=== PATIENT | male | born 1965 | race African-American/Black ===

== ENCOUNTER 2023-02-07 13:52 | Inpatient (IN) | payer BC, SELFPAY ==
[2023-02-07] VITALS (38 sets, daily range): BP systolic 95–127; BP diastolic 54–97; PULSE 130–147; RESP 16–36; TEMP 37.3–37.5; O2SAT 94–97; BMI 22.3
--- NOTE | ~2023-02-07 | XR_ITS ---
EXAMINATION: XR chest 1V DATE: 02/15/2023 14:16 INDICATION: Pleural effusion. TECHNIQUE: A single frontal view of the chest was obtained. COMPARISON: Chest single view 02/07/2023, CT abdomen and pelvis 02/07/2023 FINDINGS: There is a large right pleural effusion. There are airspace opacities at right lung base an d in left mid lung zone. No pneumothorax. The heart size is normal. There are old healed left rib fra ctures. IMPRESSION: 1. New large right pleural effusion. 2. Airspace opacities at right lung base, consistent with atelectasis versus pneumonia. 3. Airspace opacities in left midlung zone, consistent with atelectasis/scarring versus pneumonia. Reviewed, dictated and finalized at location E. BENDER IMPRESSION: 1. New large right pleural effusion. 2. Airspace opacities at right lung base, consistent with atelectasis versus pn eumonia. 3. Airspace opacities in left midlung zone, consistent with atelectasis/scarrin g versus pneumonia.
--- NOTE | ~2023-02-07 | US_ITS ---
EXAMINATION: US venous doppler [facility] DATE: 02/15/2023 14:15 INDICATION: Tachycardia. TECHNIQUE: Grayscale ultrasound images without and with compression and Doppler ultrasound images of the bilateral lower extremity veins were obtained. COMPARISON: None. FINDINGS: The visualized portions of right common femoral vein, profunda (deep) femoral vein, femoral vein, pop liteal vein, peroneal veins, posterior tibial veins, and greater saphenous vein outflow are patent. The visualized portions of left common femoral vein, profunda femoral vein, femoral vein, popliteal v ein, peroneal veins, posterior tibial veins, and greater saphenous vein outflow are patent. IMPRESSION: 1. No deep venous thrombosis. Reviewed, dictated and finalized at location E. TRIMMER
--- NOTE | ~2023-02-07 | XR_ITS ---
EXAMINATION: XR wrist RT min 3V DATE: 02/14/2023 12:34 INDICATION: Right wrist pain post fall TECHNIQUE: Posteroanterior, ulnar deviation, oblique, and lateral views of the right wrist were obtai linda. COMPARISON: none FINDINGS: Prominent diffuse osteopenia throughout the right wrist and visualized hand. Bone alignment is normal . No fracture. Polyarticular osteoarthritis, mild to moderate severity at the interphalangeal joints and mild at multiple joints at the wrist, radial aspect of the carpus and at the metacarpophalangeal joints. IMPRESSION: 1. No acute osseous abnormality. Sensitivity for nondisplaced fractures mildly limited by prominent d iffuse osteopenia. 2. Mild to moderate polyarticular osteoarthritis at the right hand and wrist with interphalangeal carla nt predominance. Reviewed, dictated and finalized at location A. ICAL SCIENCE AIDE IMPRESSION: 1. No acute osseous abnormality. Sensitivity for nondisplaced fractures mildly limited by prominent diffuse osteopenia. 2. Mild to moderate polyarticular osteoarthritis at the right hand and wrist wi th interphalangeal joint predominance.
--- NOTE | ~2023-02-07 | XR_ITS ---
EXAMINATION: [id number] DATE: 02/16/2023 15:48 INDICATION: Status post right thoracentesis TECHNIQUE: frontal and lateral views of the chest were obtained. COMPARISON: Chest radiograph dated 02/15/[address] dated 02/07/2023 FINDINGS: There is some improved aeration on at the right midlung zone. There is elevation the right hemidiaphr agm with persistent opacities at the right lower lung zone consistent with minimal residual pleural e ffusion and persistent atelectasis in the right middle and lower lobes with consolidation and volume loss. Superimposed pneumonia not excludable. Left lung remains clear. No pulmonary edema, pneumothora x or left-sided pleural effusion. Multiple old left-sided rib fractures. Heart size is normal. IMPRESSION: 1. Minimal residual right pleural effusion postthoracentesis. 2. Volume loss with consolidation in the right middle and lower lobes most likely atelectasis althoug h underlying pneumonia not excludable. Reviewed, dictated and finalized at location A. TS AGENT IMPRESSION: 1. Minimal residual right pleural effusion postthoracentesis. 2. Volume loss with consolidation in the right middle and lower lobes most like ly atelectasis although underlying pneumonia not excludable.
--- NOTE | ~2023-02-07 | US_ITS ---
EXAMINATION: US renal BI DATE: 02/14/2023 18:15 INDICATION: Pyelonephritis. TECHNIQUE: Multiple ultrasound grayscale images of the kidneys were obtained. COMPARISON: Ultrasound kidneys 02/08/2023, CT abdomen and pelvis 02/07/2023 FINDINGS: The right kidney measures 13.3 x 7.0 x 6.1 cm. The left kidney measures 12.5 x 7.2 x 7.6 cm. The kidn eys demonstrate normal parenchymal echogenicity. There is no hydronephrosis. The bladder is decompres sed by a Caba catheter. IMPRESSION: 1. Normal kidney sizes. No hydronephrosis. Reviewed, dictated and finalized at location E. EATION MANAGER
--- NOTE | ~2023-02-07 | XR_ITS ---
EXAMINATION: XR barium swallow modified DATE: 02/19/2023 10:57 INDICATION: Dysphagia. TECHNIQUE: The patient was given barium-containing material of multiple consistencies to swallow by t he speech pathologist while I performed fluoroscopy. Fluoroscopy exposure time was 0.8 minutes. The n umber of fluoroscopy images saved to the PACS was 1. Dose-area product was 0.614 Gy-cm^2. FINDINGS: The oral stage, pharyngeal stage, and cervical/esophageal stage of the swallow are normal. IMPRESSION: 1. Normal modified barium swallow. 2. Please refer to the speech therapy report for recommendations. Reviewed, dictated and finalized at location A. A SPECIALIST
--- NOTE | ~2023-02-07 | NM_ITS ---
EXAMINATION: NM lung vent and perfusion DATE: 02/15/2023 14:56 INDICATION: Tachycardia. TECHNIQUE: 21.63 mCi Xenon-133 was administered for ventilation images. 5.4 mCi Tc-99m MAA was admini stered intravenously for perfusion images. Scintigraphic images of the chest were obtained. COMPARISON: Chest single view 02/15/2023 FINDINGS: Ventilation images show a large right pleural effusion. Perfusion images demonstrate a large right pl eural effusion. There are small perfusion defects in the upper lobes. There is a defect correlating w ith a left lateral chest wall deformity. IMPRESSION: 1. Nondiagnostic (intermediate probability). Reviewed, dictated and finalized at location E. N TRIMMER
--- NOTE | ~2023-02-07 | US_ITS ---
US renal BI 02/08/2023 10:06 Procedure: Realtime transabdominal ultrasound of the kidneys and bladder. Indication: Elevated renal function tests. Comparison: No prior studies for comparison. Findings: Renal echotexture is normal bilaterally without hydronephrosis, contour deforming mass or r enal calculus. The right kidney measures 13.5 cm and left kidney measures 14.3 cm. There is a Caba c atheter present in the bladder. Impression: 1: Unremarkable renal ultrasound. No stones, masses or hydronephrosis. Reviewed, dictated and finalized at location L. ABLE ROUTER OPERATOR Impression: 1: Unremarkable renal ultrasound. No stones, masses or hydronephrosis.
--- NOTE | ~2023-02-07 | US_ITS ---
EXAMINATION: US thoracentesis DATE: 02/16/2023 16:17 INDICATION: Right pleural effusion TECHNIQUE: The procedure and its risks and benefits were discussed with the patient. Potential risks discussed included bleeding, infection, and pneumothorax. The patient understood the risks and agreed to proceed. The skin was prepped and draped in sterile fashion. 1% lidocaine was used for local anes thesia. Under ultrasound guidance, a 5 Fr catheter with trochar was advanced into the small right ple ural effusion. Fluid was aspirated. The catheter was removed, and a dressing was applied. There were no immediate complications. FINDINGS: Ultrasound images demonstrate a small right pleural effusion and the catheter within the fluid. IMPRESSION: 1. Successful ultrasound-guided thoracentesis yielding 150 mL of yellow fluid. Reviewed, dictated and finalized at location A. ETRICS TECHNICIAN
--- NOTE | ~2023-02-07 | CT_ITS ---
EXAMINATION: CT brain wo con DATE: 02/07/2023 15:45 INDICATION: altered mental status . TECHNIQUE: Computed tomography (CT) of the head was performed without intravenous contrast. The mA wa s adjusted according to patient size. Iterative reconstruction technique was employed. The dose-lengt h product was 681.00 mGy-cm. COMPARISON: None. FINDINGS: Motion artifact at the skull base/inferior brain. No acute intracranial hemorrhage or extra-axial fluid collection. No hydrocephalus, mass, or herniation. No acute ischemic infarct. Unremarkable dural venous sinus attenuation. No acute osseous abnormality. Partial opacification of the left ethmoid air cells, the remaining aerated spaces are clear. Mild chronic white matter change. Atherosclerotic intracranial calcifications. Bilateral basal gangli a calcification. IMPRESSION: No acute intracranial process. Reviewed, dictated and finalized at location K. EM SAFETY MANAGER
--- NOTE | ~2023-02-07 | XR_ITS ---
EXAMINATION: XR chest 1V Exam Date/Time: 02/07/2023 15:40 FLIGHT INFORMATION EXPEDITER HISTORY: sepsis Comparison: None. RESULT: Lines, tubes, and devices: None. Lungs and pleura: Left lower lung scarring. Bibasilar atelectasis/scar. Cardiomediastinal silhouette: Stable. Other: No acute osseous or upper abdominal finding. Chronic left rib deformities. IMPRESSION: No acute cardiopulmonary process. Reviewed, dictated and finalized at location K. HT INFORMATION EXPEDITER
--- NOTE | ~2023-02-07 | CT_ITS ---
EXAMINATION: CT abdomen pelvis wo con DATE: 02/07/2023 15:46 INDICATION: hematuria, altered mental status, sepsis TECHNIQUE: Computed tomography (CT) of the abdomen and pelvis was performed without intravenous contr ast. Automated exposure control and iterative reconstruction technique were employed. The dose-length product was 977.52 mGy-cm. COMPARISON: X-ray chest, same date. FINDINGS: Lower thorax: Coronary artery calcifications. Left lower lobe scar. Bibasilar atelectasis/scar. Chron ic left rib deformities. Liver: Enlarged. Biliary/Gallbladder: Gallbladder hydrops without inflammatory change. No bile duct dilation. Pancreas: No mass or duct dilation. Spleen: Normal. Adrenals:No mass. Kidneys: No obstructing calcification or suspicious mass. Apparent bilateral renal enlargement, great er on the left. Moderate bilateral perinephric stranding. Mild bilateral ureterectasis and ureteral s tranding. GI tract: No small or large bowel dilation. Normal appendix. Mesentery/Peritoneum: No ascites, mass, or free air. Fluid/inflammatory change along the bilateral la teral conal fascia. Retroperitoneum: No mass. Atherosclerotic abdominal aortic and/or arterial calcifications. Pelvis: The bladder is decompressed by Caba catheter. There is bladder wall thickening and surroundi ng inflammatory change. Soft Tissues: Soft tissues and body wall unremarkable. Bones: No acute osseous finding. IMPRESSION: Hepatomegaly. Gallbladder hydrops without inflammatory change. Correlate with right upper quadrant pain and biliary labs. Findings concerning for cystitis with bilateral ascending infection and bilateral pyelonephritis. Reviewed, dictated and finalized at location K. OPATH TECH IMPRESSION: Hepatomegaly. Gallbladder hydrops without inflammatory change. Correlate with right upper brian drant pain and biliary labs. Findings concerning for cystitis with bilateral ascending infection and bilater al pyelonephritis.
--- NOTE | 2023-02-07 13:59 | ECG_ITS ---
Measurements Intervals [place] Rate: 142 P: 65 SC: 126 QRS: 71 QRSD: 80 T: 35 QT: 328 QTc: 506 Interpretive Statements SINUS TACHYCARDIA NONSPECIFIC T-WAVE ABNORMALITY ABNORMAL RHYTHM ECG NO PREVIOUS ECG AVAILABLE FOR COMPARISON Electronically Signed On 02-07-2023 21:16:31 SENIOR RUBY DEVELOPER by Rito Thacker M.D.
--- NOTE | 2023-02-07 14:02 | ED.AMS ---
HPI - Altered Mental Status General Chief Complaint: Altered Mental Status Stated Complaint: AMS Time Seen by Provider: 02/07/23 14:01 History of Present Illness HPI narrative: Patient is a 57 year old male here from [facility] here with altered mental status and hematuria. Patient is reportedly AOx4 at baseline, became confused today. They also reportedly changed his dave catheter today and noted he had blood from his catheter and sent him to the ER. He is unsure of why he is here, unsure of his medical history. His paperwork from facility note he is full code, has diagnoses of hydronephrosis with renal and ureteral calculous, repeated falls, HTN, CAD. Related Data Home Medications Medication Instructions Recorded Confirmed amlodipine 10 mg-benazepril 20 mg 1 cap PO DAILY 02/07/23 02/07/23 capsule hydrocodone 5 mg-acetaminophen 325 1 tablet PO Q8H PRN Pain 02/07/23 02/07/23 mg tablet tamsulosin 0.4 mg capsule 0.4 mg PO DAILY 02/07/23 02/07/23 Allergies Allergy/AdvReac Type Severity Reaction Status Date / Time No Known Allergies Allergy Verified 02/07/23 15:28 Review of Systems Review of Systems: ROS unobtainable: Yes unobtainable due to mental status Exam Narrative: GENERAL: Chronically ill-appearing HEAD: Normocephalic, atraumatic. EYES: PERRLA and EOMI. ENT: Nares clear. Mucous membranes dry. NECK: Supple. CHEST: Clear to auscultation. No respiratory distress. HEART: Tachycardic. Normal peripheral pulses. ABDOMEN: Soft, nontender, nondistended. Dave catheter in place with dark red blood output. EXTREMITIES: Normal range of motion. No edema. SKIN: Warm, dry, no rash. NEURO: No focal deficits. Alert and oriented x2. Course Course Emergency Course: Chart review performed, no prior visits in our system. Tachycardic, borderline hypertension, tachypneic. Patient seen and evaluated, dry mucous membranes, altered. CT brain in addition to sepsis workup ordered. Given gross hematuria, will do CT abdomen pelvis and replace dave with 3 way and do CBI. Lab work reviewed. CBC unremarkable, Hgb 11.1. Potassium elevated at 6.2, no obvious EKG changes, creatinine is 8.2. Suspect JUDAH is due to obstructive vs volume depleted given dry mucous membranes. Hyperkalemia treatment ordered with insulin, D50, lokelma, calcium. Lactic elevated at 4.8. CRP elevated at 40.5. Broad spectrum antibiotics for unknown source ordered. 30 cc/kg IVF bolus was already ordered. COVID, Influenza, RSV negative. CT brain negative, CXR negative. CT abdomen pelvis shows likely cystitis and bilateral pyelonephritis. Will reevaluate. Patient reevaluated, continues to deny any pain. CBI in process, clearing urine, now a light pink color. He was down at imaging for prolonged period, initial IVF continue to be infusing. Will wait for IVF and hyperkalemia meds before drawing repeat lab work. Repeat lactic downtrending, has not completed IVF, second IV access was obtained so he is now able to get additional IVF. Patient reevaluated, more alert at this time, notes he began feeling poorly yesterday, he feels quite dehydrated, requesting PO fluids. Repeat BMP ordered. Repeat EKG ordered given persistent tachycardia. Improving renal function with IVF. Potassium now 5.1. Spoke with Dr. Chavarria, will be on consult. CBI was discontinued, patient once again has dark red output. Advise to restart CBI. Discussed case with Dr. Roth, recommends continuing CBI overnight, NPO at midnight. Send urine culture. He has been persistently tachycardic in the 140s despite recussitation, repeat ekg suggests possible aflutter, baseline has excessive artifact, will do trial of cardizem to see if it helps with HR. Patient was admitted by Dr. Caicedo, updated on plan of care. IMU bed available. Vital Signs Vital signs: Vital Signs Temperature 99.1 F 02/07/23 13:45 Pulse Rate 137 H 02/07/23 13:45 Respiratory Rate 29 H 02/07/23 13:
[2023-02-07 15:04] LABS: Hematocrit 34.4 % (42.0-52.0); Hemoglobin 11.1 g/dL (14.0-18.0); Immature Platelet Fraction Pct 9.4 % (0.9-11.2); Mean Corpuscular HGB Conc 32.3 g/dl (32-36); Mean Corpuscular Hemoglobin 30.2 pg (26-34); Mean Corpuscular Volume 93.7 fl (80-100); Mean Platelet Volume 11.1 fl (7.4-10.4); Platelet Count Result 61 k/mm3 (150-375); Red Blood Count 3.67 M/mm3 (4.6-6.20); Red Cell Distribution Width 16.8 % (11.5-14.5); White Blood Count 9.5 K/mm3 (4.5-10.0)
[2023-02-07 15:10] LABS: Alanine Aminotransferase 32 U/L (6-50); Albumin Level 4.1 g/dL (3.5-5.1); Alkaline Phosphatase 91 U/L (38-126); Anion Gap 20 mmol/L (8-16); Aspartate Amino Transferase 67 U/L (17-59); Bilirubin,Total 1.8 mg/dL (0.2-1.3); Blood Urea Nitrogen 101 mg/dL (9-20); Calcium 9.1 mg/dL (8.4-10.2); Carbon Dioxide 16 mmol/L (22-30); Chloride 97 mmol/L (98-107); Estimated Glomerular Filt Rate 8; Glucose 103 mg/dL (65-110); Potassium 6.2 mmol/L (3.4-5.0); Sodium 133 mmol/L (137-145)
[2023-02-07 15:12] LABS: INR 1.5; Prothrombin Time 18.7 Seconds (11.1-14.7)
[2023-02-07 15:12] LABS: Lactic Acid Reflex 4.8 mmol/L (0.7-2.0)
[2023-02-07] MEDS: LACTATED RINGERS 1,000 ML 999 ML IV CONT ×5 (15:12→22:09)
[2023-02-07 15:13] LABS: Partial Thromboplastin Time 45.4 SECONDS (22.3-36.8)
[2023-02-07 15:14] LABS: Band Neutrophils Percent 12 % (0-6); Eosinophils Absolute Manual 0.09 K/mm3 (0.02-0.5); Eosinophils Percent Manual 1 % (0-4); Lymphocytes Absolute Manual 0.66 K/mm3 (1.1-4.5); Monocytes Absolute Manual 0.47 K/mm3 (0.1-0.90); Monocytes Percent Manual 5 % (3-9); Neutrophils Absolute Manual 8.26 K/mm3 (1.3-6.7); Neutrophils Percent Manual 75 % (46-73); Platelet Estimate Decreased (Adequate); Total Cells Counted 100
[2023-02-07 15:15] LABS: Anisocytosis 1+ (NORMAL); Macrocytosis 1+ (NORMAL); Schistocytes None Seen (NORMAL)
[2023-02-07 15:21] LABS: Troponin I 0.015 ng/mL (0.000-0.034)
[2023-02-07 15:34] LABS: Lipase 346 U/L (23-300)
[2023-02-07 15:37] LABS: Influenza A QL RT-PCR Negative (Negative); Influenza B QL RT-PCR Negative (Negative); RSV RNA, RT-PCR Negative (Negative); SARS-CoV-2 RNA PCR Negative (Negative)
[2023-02-07 15:48] LABS: CRP 40.5 mg/dL (<1.0)
--- NOTE | 2023-02-07 16:06 | PC.NURSE ---
pt was not draining urine after dave cath placement suspected due to blood clot. CBI started before getting urine sample per MD verbal order and pt began draining bright red blood
[2023-02-07] MEDS: CALCIUM GLUCONATE 1,000 MG/10 ML VIAL 2000 MG IV PUSH (16:12)
[2023-02-07] MEDS: INSULIN HUMAN REGULAR (*BKC) 100 UNITS/ML 10 UNITS IV PUSH (16:13)
[2023-02-07] MEDS: SODIUM ZIRCONIUM CYCLOSILICATE 10 GM POWD.PACK PO (16:13)
[2023-02-07] MEDS: DEXTROSE 50% 25 GM/50 ML SYRINGE IV PUSH (16:13)
--- NOTE | 2023-02-07 16:23 | PC.NURSE ---
pt down to imaging @1532 and back @7951
[2023-02-07 16:37] LABS: Glucose Point of Care 165 mg/dl (65-105)
[2023-02-07] MEDS: CEFEPIME 2 GM/NS 50 ML 2 GM/50 ML BAG IVPB (16:54)
[2023-02-07 17:11] LABS: Glucose Point of Care 122 mg/dl (65-105)
[2023-02-07] MEDS: VANCOMYCIN 750 MG/NS 250 ML 750 MG/250 ML BAG 250 MG IVPB (17:36)
[2023-02-07 17:58] LABS: Reflex Lactic Acid Yes or No Add Lactic
[2023-02-07 18:04] LABS: Glucose Point of Care 72 mg/dl (65-105)
--- NOTE | 2023-02-07 18:07 | PC.NURSE ---
check blood sugar and it came back 72, notified MD. gave pt 2 cups of fruit juice per MD verbal order
--- NOTE | 2023-02-07 19:18 | ECG_ITS ---
Measurements Intervals [place] Rate: 132 P: 66 MS: 127 QRS: 77 QRSD: 85 T: 39 QT: 332 QTc: 493 Interpretive Statements SINUS TACHYCARDIA NONSPECIFIC ST AND T WAVE ABNORMALITY COMPARED TO ECG 02/07/2023 21:16:36 NO SIGNIFICANT CHANGES Electronically Signed On 02-08-2023 9:13:52 PATTERNMAKER METAL by Rito Thacker M.D.
[2023-02-07 19:29] LABS: Anion Gap 17 mmol/L (8-16); Blood Urea Nitrogen 83 mg/dL (9-20); Carbon Dioxide 13 mmol/L (22-30); Chloride 100 mmol/L (98-107); Estimated CRCL calculation 8 ml/min; Estimated Glomerular Filt Rate 12; Glucose 102 mg/dL (65-110); Potassium 5.1 mmol/L (3.4-5.0); Sodium 130 mmol/L (137-145)
--- NOTE | 2023-02-07 19:30 | PC.NURSE ---
care and report given to MARY Zheng. all questions answered.
[2023-02-07] MEDS: LACTATED RINGERS 1,000 ML 150 ML IV CONT (20:30)
[2023-02-07 20:51] LABS: Sodium Urine Random 64 meq/L
--- NOTE | 2023-02-07 20:52 | ECG_ITS ---
Measurements Intervals [place] Rate: 135 P: 61 IL: 117 QRS: 65 QRSD: 84 T: 0 QT: 292 QTc: 438 Interpretive Statements SINUS TACHYCARDIA WITH SHORT [place] INTERVAL NONSPECIFIC ST AND T-WAVE ABNORMALITY ABNORMAL RHYTHM ECG WARNING: DATA QUALITY MAY AFFECT INTERPRETATION COMPARED TO ECG 02/07/2023 21:59:12 NO SIGNIFICANT CHANGES Electronically Signed On 02-08-2023 9:15:29 CORRECTIONAL MEDICINE PHYSICIAN by Rito Thacker M.D.
[2023-02-07 20:53] LABS: Appearance Urine Turbid (Clear); Blood Urine 4+ (Negative); Color Urine Red (Yellow); Glucose Urine UA Negative (Negative); Ketones Urine Negative (Negative); Nitrate Urine Positive (Negative); Protein Urine 3+ mg/dL (Negative)
[2023-02-07 20:54] LABS: Add Urine Microscopic? YES; Bacteria Urine Trace /hpf; Bilirubin Urine Negative (Negative); Leukocyte Esterase Ur 3+ LEU/UL (Negative); RBC Urine >100 /hpf (0-2); WBC Clumps Urine Present /HPF; WBC Urine >100 /hpf
[2023-02-07 20:55] LABS: Non Pathogenic Casts Present
[2023-02-07 21:34] LABS: Hematocrit 25.3 % (42.0-52.0); Hemoglobin 8.4 g/dL (14.0-18.0)
--- NOTE | 2023-02-07 21:45 | PC.NURSE ---
This RN was notified of patient room assignment at [id number] while cleaning and changing the patient.
[2023-02-07] MEDS: dilTIAZem HCl INJ 25 MG/5 ML VIAL 15 MG IV PUSH (21:48)
--- NOTE | 2023-02-07 21:55 | PC.NURSE ---
at bedside. VORB for 1000mL of lactated ringers bolus.
--- NOTE | 2023-02-07 21:56 | ECG_ITS ---
Measurements Intervals [place] Rate: 135 P: 62 [place]: 119 QRS: 73 QRSD: 89 T: -49 QT: 265 QTc: 397 Interpretive Statements SINUS TACHYCARDIA WITH SHORT [place] INTERVAL MODERATE T-WAVE ABNORMALITY, CONSIDER INFERIOR ISCHEMIA [-0.1+ mV T WAVE IN II/aVF] NO PREVIOUS ECG AVAILABLE FOR COMPARISON Electronically Signed On 02-08-2023 15:02:24 WHARF LABOURER by Rito Thacker M.D.
[2023-02-07] MEDS: dilTIAZem HCl INJ 25 MG/5 ML VIAL 10 MG IV PUSH (22:00)
[2023-02-07 23:24] LABS: Immature Platelet Fraction Pct 10.3 % (0.9-11.2); Mean Corpuscular HGB Conc 33.3 g/dl (32-36); Mean Corpuscular Hemoglobin 30.5 pg (26-34); Mean Corpuscular Volume 91.5 fl (80-100); Mean Platelet Volume 11.8 fl (7.4-10.4); Platelet Count Result 48 k/mm3 (150-375); Red Blood Count 2.95 M/mm3 (4.6-6.20); Red Cell Distribution Width 16.4 % (11.5-14.5); White Blood Count 5.7 K/mm3 (4.5-10.0)
[2023-02-07 23:38] LABS: Band Neutrophils Percent 10 % (0-6); Lymphocytes Absolute Manual 0.74 K/mm3 (1.1-4.5); Monocytes Absolute Manual 0.17 K/mm3 (0.1-0.90); Monocytes Percent Manual 3 % (3-9); Neutrophils Absolute Manual 4.78 K/mm3 (1.3-6.7); Neutrophils Percent Manual 74 % (46-73); Platelet Estimate Decreased (Adequate); Total Cells Counted 100
[2023-02-07 23:39] LABS: Anisocytosis 1+ (NORMAL); Burr Cells 1+ (NORMAL); Schistocytes None Seen (NORMAL)
[2023-02-07 23:44] LABS: Anion Gap 19 mmol/L (8-16); Blood Urea Nitrogen 98 mg/dL (9-20); Calcium 8.4 mg/dL (8.4-10.2); Carbon Dioxide 15 mmol/L (22-30); Chloride 99 mmol/L (98-107); Glucose 95 mg/dL (65-110); Magnesium 1.6 mg/dL (1.6-2.3); Potassium 5.4 mmol/L (3.4-5.0); Sodium 133 mmol/L (137-145)
[2023-02-07 23:45] LABS: Lactic Acid Reflex 4.2 mmol/L (0.7-2.0)
[2023-02-07 23:52] LABS: Estimated CRCL calculation 12 ml/min; Estimated Glomerular Filt Rate 11
[2023-02-08] VITALS (33 sets, daily range): BP systolic 80–105; BP diastolic 56–71; PULSE 100–137; RESP 18–30; TEMP 36.4–38.4; O2SAT 19–99; BMI 22.3
[2023-02-08 00:16] LABS: Procalcitonin > 100.0 ng/mL
--- NOTE | 2023-02-08 00:19 | PM.IMHP ---
H&P: HPI History of Present Illness Date/Time: 02/08/23 00:19 Chief Complaint: 57M w/ PMH urolithiasis, urinary retention with chronic dave, HTN presents from [facility] with altered mental status. Reportedly his baseline is A&Ox4. History is scant as the patient cannot provide it reliably, his only contact was unreachable and longterm documentation isn't greatly helpful. The pt had a dave catheter change on the day of admission, apparently has had some bleeding. In the ER his dave was found to be grossly red, he had multiples lab derangements including leukocytosis, JUDAH, lactic acidosis, anema, hyperkalemia, positive UA and a CT abd/pelv revealed gallbladder hydrops without inflammatory change and concerning for cystitis with b/l ascending infection and b/l pyelonephritis. CT head and CXR were otherwise unremarkable. The patient can converse but his answers are sometimes disorganized. He asks for orange juice. Review of Systems Review of Systems: ROS unobtainable: Yes unobtainable due to mental status Meds Home Medications and Allergies Home Medications Medication Instructions Recorded Confirmed Type amlodipine 10 mg-benazepril 20 mg 1 cap PO DAILY 02/07/23 02/07/23 History capsule hydrocodone 5 mg-acetaminophen 325 1 tablet PO Q8H PRN Pain 02/07/23 02/07/23 History mg tablet tamsulosin 0.4 mg capsule 0.4 mg PO DAILY 02/07/23 02/07/23 History Allergies Allergy/AdvReac Type Severity Reaction Status Date / Time No Known Allergies Allergy Verified 02/07/23 15:28 Vital Signs Vital Signs - 24 hr 02/07/23 13:45 02/07/23 13:57 02/07/23 13:57 Temperature 99.1 F Pulse Rate 137 H 138 H Respiratory Rate 29 H Blood Pressure 104/66 Pulse Oximetry 94 94 Oxygen Delivery Room Air Room Air 02/07/23 14:50 02/07/23 14:51 02/07/23 15:28 Temperature Pulse Rate 139 H 138 H 132 H Respiratory Rate 24 H 29 H 18 Blood Pressure 125/75 109/54 L Pulse Oximetry Oxygen Delivery 02/07/23 14:52 02/07/23 15:04 02/07/23 15:48 Temperature Pulse Rate 138 H 140 H 134 H Respiratory Rate 31 H 28 H 28 H Blood Pressure Pulse Oximetry Oxygen Delivery 02/07/23 15:52 02/07/23 16:32 02/07/23 16:45 Temperature Pulse Rate 133 H 147 H 146 H Respiratory Rate 26 H 25 H 25 H Blood Pressure Pulse Oximetry Oxygen Delivery 02/07/23 17:00 02/07/23 17:15 02/07/23 17:24 Temperature Pulse Rate 141 H 140 H 140 H Respiratory Rate 25 H 26 H 26 H Blood Pressure 112/69 Pulse Oximetry 97 Oxygen Delivery 02/07/23 17:25 02/07/23 17:30 02/07/23 17:46 Temperature Pulse Rate 140 H 143 H 142 H Respiratory Rate 24 H 29 H 30 H Blood Pressure Pulse Oximetry 97 Oxygen Delivery 02/07/23 17:51 02/07/23 18:00 02/07/23 18:01 Temperature Pulse Rate 139 H 136 H 140 H Respiratory Rate 28 H 33 H 32 H Blood Pressure 108/77 110/78 Pulse Oximetry 97 Oxygen Delivery 02/07/23 18:02 02/07/23 18:11 02/07/23 18:15 Temperature Pulse Rate 140 H 140 H 136 H Respiratory Rate 29 H 30 H 32 H Blood Pressure 113/80 Pulse Oximetry 96 Oxygen Delivery 02/07/23 19:19 02/07/23 19:01 02/07/23 19:02 Temperature Pulse Rate 138 H 137 H 138 H Respiratory Rate 33 H 32 H 36 H Blood Pressure 116/84 120/76 Pulse Oximetry 96 Oxygen Delivery 02/07/23 19:10 02/07/23 19:15 02/07/23 19:20 Temperature Pulse Rate 136 H 135 H 138 H Respiratory Rate 31 H 30 H 35 H Blood Pressure 116/84 122/87 Pulse Oximetry 96 96 96 Oxygen Delivery 02/07/23 19:30 02/07/23 19:31 02/07/23 20:29 Temperature Pulse Rate 138 H 138 H 137 H Respiratory Rate 35 H 36 H 27 H Blood Pressure 127/82 Pulse Oximetry Oxygen Delivery 02/07/23 20:30 02/07/23 20:31 02/07/23 20:45 Temperature Pulse Rate 138 H 137 H 138 H Respiratory Rate 34 H 33 H 35 H Blood Pressure 119/79 Pulse Oximetry Oxygen Delivery 02/07/23 20:51
[2023-02-08] MEDS: METOPROLOL TARTRATE INJ 5 MG/5 ML VIAL IV PUSH (00:26)
[2023-02-08] MEDS: INSULIN HUMAN REGULAR (*BKC) 100 UNITS/ML 10 UNITS IV PUSH (00:28)
[2023-02-08] MEDS: DEXTROSE 50% 25 GM/50 ML SYRINGE IV PUSH (00:30)
[2023-02-08] MEDS: CALCIUM GLUC 2,000 MG/NS 100ML 2,000 MG/100 ML BAG 100 MG IVPB (00:30)
[2023-02-08] MEDS: SODIUM CHLORIDE 0.9% IV 1,000 ML 150 ML IV CONT (00:30)
[2023-02-08] MEDS: SODIUM BICARBONATE 8.4% 50 MEQ/50 ML SYRINGE IV PUSH (00:30)
[2023-02-08] MEDS: SODIUM ZIRCONIUM CYCLOSILICATE 5 GM POWD.PACK PO ×2 (01:24→11:20)
--- NOTE | 2023-02-08 03:22 | ADMGEN ---
This patient, Stanley Ingram, was admitted to IMU Room 214-01 at 2225 on 02/07/2023 . Patient/family oriented to hospital policies and general routines including ID bracelet, bed and alarms, visiting hours, pain management, procedures, bathroom and other care routines, personal items, smoking policy, room service/diet, and visiting hours. Information on how to activate the Rapid Response Team has been discussed. Patient/Family are encouraged to report perceived risks to care and to ask questions if they do not understand what they are told or what they should do.
[2023-02-08 03:41] LABS: Hematocrit 25.9 % (42.0-52.0); Hemoglobin 8.5 g/dL (14.0-18.0); Immature Platelet Fraction Pct 11.2 % (0.9-11.2); Mean Corpuscular HGB Conc 32.8 g/dl (32-36); Mean Corpuscular Hemoglobin 29.8 pg (26-34); Mean Corpuscular Volume 90.9 fl (80-100); Mean Platelet Volume 12.2 fl (7.4-10.4); Platelet Count Result 40 k/mm3 (150-375); Red Blood Count 2.85 M/mm3 (4.6-6.20); Red Cell Distribution Width 16.4 % (11.5-14.5); White Blood Count 10.5 K/mm3 (4.5-10.0)
--- NOTE | 2023-02-08 03:50 | PC.NURSE ---
Blood verification time did not save initially, reverified at later time with 2nd RN and platelets started at 0327.
[2023-02-08] MEDS: SODIUM CHLORIDE 0.9% IV 250 ML 30 ML IV CONT ×2 (03:55→10:39)
[2023-02-08] MEDS: TUBING, BLOOD PLUM PUMP TUBING 1 EACH XX (03:55)
[2023-02-08 03:56] LABS: Alanine Aminotransferase 31 U/L (6-50); Albumin Level 3.3 g/dL (3.5-5.1); Alkaline Phosphatase 75 U/L (38-126); Anion Gap 21 mmol/L (8-16); Aspartate Amino Transferase 111 U/L (17-59); Bilirubin,Total 1.6 mg/dL (0.2-1.3); Blood Urea Nitrogen 100 mg/dL (9-20); Calcium 8.9 mg/dL (8.4-10.2); Carbon Dioxide 14 mmol/L (22-30); Chloride 101 mmol/L (98-107); Glucose 82 mg/dL (65-110); Magnesium 1.7 mg/dL (1.6-2.3); Phosphorus 5.8 mg/dL (2.5-4.5); Potassium 4.6 mmol/L (3.4-5.0); Sodium 136 mmol/L (137-145)
[2023-02-08 03:57] LABS: Band Neutrophils Percent 6 % (0-6); Lymphocytes Absolute Manual 1.89 K/mm3 (1.1-4.5); Monocytes Absolute Manual 1.05 K/mm3 (0.1-0.90); Monocytes Percent Manual 10 % (3-9); Neutrophils Absolute Manual 7.56 K/mm3 (1.3-6.7); Neutrophils Percent Manual 66 % (46-73); Platelet Estimate Decreased (Adequate); Total Cells Counted 100
[2023-02-08 03:58] LABS: Anisocytosis 1+ (NORMAL); Burr Cells 1+ (NORMAL)
[2023-02-08 03:59] LABS: Schistocytes None Seen (NORMAL)
[2023-02-08 04:01] LABS: Estimated CRCL calculation 12 ml/min; Estimated Glomerular Filt Rate 10
[2023-02-08 04:07] LABS: INR 1.6; Prothrombin Time 20.1 Seconds (11.1-14.7)
[2023-02-08 04:08] LABS: Fibrinogen 626 mg/dl (215-510); Partial Thromboplastin Time 47.6 SECONDS (22.3-36.8)
[2023-02-08 04:23] LABS: D Dimer 11.27 ug/mL (<0.48)
[2023-02-08 04:43] LABS: Glucose Point of Care 99 mg/dl (65-105)
[2023-02-08 04:43] LABS: Glucose Point of Care 93 mg/dl (65-105)
[2023-02-08 04:43] LABS: Glucose Point of Care 87 mg/dl (65-105)
[2023-02-08 05:15] LABS: Lactic Acid Reflex 5.1 mmol/L (0.7-2.0)
[2023-02-08] MEDS: SODIUM CHLORIDE 0.9% IV 1,000 ML 999 ML IV CONT (05:24)
[2023-02-08] MEDS: SODIUM BICARBONATE 8.4% 150 MEQ in WATER, STERILE FOR INJECTION 950 ML 100 MEQ IV CONT ×2 (05:25→16:55)
[2023-02-08 05:43] LABS: Glucose Point of Care 98 mg/dl (65-105)
--- NOTE | 2023-02-08 06:48 | PC.NURSE ---
pt transfered from imu report recieved pt placed on monitor
--- NOTE | 2023-02-08 07:20 | WPDURCON ---
Assessment and Plan Assessment and plan (1) Hematuria: Qualifiers: Hematuria type: unspecified type Qualified Code(s): R31.9 - Hematuria, unspecified Code(s): R31.9 - Hematuria, unspecified Status: Acute Assessment and Plan: Hematuria d/t acute cystitis with bilateral ascending pyelonephritis. Chronic urinary retention uncertain etiology. - Continue CBI while treating UTI - Would benefit from outpatient evaluation with urodynamics to determine cause for retention (outlet obstruction vs. hypotonic bladder). Urology Consult Note HPI Date Seen: 02/08/23 Requesting Physician: Viky Caicedo MD Primary Care Provider: PLASTICS SCIENTIST PHYSICIAN Consult Narrative Narrative: Stanley Ingram is a 57 year old male who was first seen in our practice as an inpatient consult at [facility] in [place], [place] where he was admitted in November 2022 with generalized weakness. He was found to be in urinary retention with a bladder volume of 1000 cc and mild bilateral hydronephrosis. Hydronephrosis resolved with catheter placement. Subsequent to discharge he has missed several outpatient appointments and has been noncompliant with follow-up. To my knowledge the catheter has been indwelling since. Patient is a resident of a prison and appears to be minimally ambulatory. He is unable to give a reliable history at this time. his indwelling catheter was replaced last night with a 3-way catheter. Urine is minimally blood tinged on a slow CBI. Review of Systems Review of Systems: ROS unobtainable: Yes unobtainable due to mental status PMFSH Social History Social History Smoking status: Never smoker Alcohol intake: former Substance use: unknown Do You Feel Safe in your Home?: Yes Lack of Transportation: No Lack of Food: Never True Current Housing: I Have Housing Concerned About Future Housing: No Difficulty Paying Gas/Electric Bills: No Difficulty Paying for Meds: No Currently Unemployed: No Education: High School Diploma/GED Difficulty w/ Childcare or Family Care: No Spiritual care concerns: No Meds Home Medications and Allergies Home Medications Medication Instructions Recorded Confirmed Type amlodipine 10 mg-benazepril 20 mg 1 cap PO DAILY 02/07/23 02/07/23 History capsule hydrocodone 5 mg-acetaminophen 325 1 tablet PO Q8H PRN Pain 02/07/23 02/07/23 History mg tablet tamsulosin 0.4 mg capsule 0.4 mg PO DAILY 02/07/23 02/07/23 History Allergies Allergy/AdvReac Type Severity Reaction Status Date / Time No Known Allergies Allergy Verified 02/07/23 15:28 Vital Signs Vital Signs - 24 hr 02/07/23 13:45 02/07/23 13:57 02/07/23 13:57 Temperature 99.1 F Pulse Rate 137 H 138 H Respiratory Rate 29 H Blood Pressure 104/66 Pulse Oximetry 94 94 Oxygen Delivery Room Air Room Air Oxygen Flow Rate 02/07/23 14:50 02/07/23 14:51 02/07/23 15:28 Temperature Pulse Rate 139 H 138 H 132 H Respiratory Rate 24 H 29 H 18 Blood Pressure 125/75 109/54 L Pulse Oximetry Oxygen Delivery Oxygen Flow Rate 02/07/23 14:52 02/07/23 15:04 02/07/23 15:48 Temperature Pulse Rate 138 H 140 H 134 H Respiratory Rate 31 H 28 H 28 H Blood Pressure Pulse Oximetry Oxygen Delivery Oxygen Flow Rate 02/07/23 15:52 02/07/23 16:32 02/07/23 16:45 Temperature Pulse Rate 133 H 147 H 146 H Respiratory Rate 26 H 25 H 25 H Blood Pressure Pulse Oximetry Oxygen Delivery Oxygen Flow Rate 02/07/23 17:00 02/07/23 17:15 02/07/23 17:24 Temperature Pulse Rate 141 H 140 H 140 H Respiratory Rate 25 H 26 H 26 H Blood Pressure 112/69 Pulse Oximetry 97 Oxygen Delivery Oxygen Flow Rate 02/07/23 17:25 02/07/23 17:30 02/07/23 17:46 Temperature Pulse Rate 140 H 143 H 142 H Respiratory Rate 24 H 29 H 30 H Blood Pressure Pulse Oximetry 97 Oxygen Delivery Oxygen
[2023-02-08 07:37] LABS: Glucose Point of Care 112 mg/dl (65-105)
[2023-02-08 07:59] LABS: Reflex Lactic Acid Yes or No Add Lactic
[2023-02-08] MEDS: FLUCONAZOLE 200 MG/NACL 100 ML 200 MG/100 ML BAG 100 MG IVPB (08:31)
[2023-02-08] MEDS: PANTOPRAZOLE SODIUM IV 40 MG VIAL IV PUSH (08:31)
[2023-02-08 08:35] LABS: Lactic Acid 2.1 mmol/L (0.7-2.0)
--- NOTE | 2023-02-08 09:05 | PM.CNNEP ---
Assessment and Plan Assessment and plan (1) Acute renal failure: Qualifiers: Acute renal failure type: unspecified Qualified Code(s): N17.9 - Acute kidney failure, unspecified Code(s): N17.9 - Acute kidney failure, unspecified Status: Acute Assessment and Plan: The patient has acute kidney injury. Although we do not know his baseline, he does not have a diagnosis of kidney disease in his chart at the senior care. There are several causes for his kidney disease. His blood pressure was low in the emergency room. Getting some IV fluid to counteract this. He is dehydrated. He is getting IV fluids for this as well. He has sepsis. Cultures have been done. He is on vancomycin cefepime and fluconazole. He has pyelonephritis which can also raise the creatinine just by the physical presence of the inflammation. CT ruled out obstruction. Other causes of kidney failure include rhabdomyolysis, glomerulonephritis, and interstitial nephritis which are less likely in this clinical scenario Will check a renal ultrasound, urine electrolytes and CPK. Continue the IV fluids. Continue CBI keep the blood in the urine from clotting His creatinine has come down a little bit since being in the ER. Will follow the creatinine going forward. If things worsen he may not need dialysis but at this point I am hoping that the kidney function will improve with supportive care of the above. The CBI makes following intake/output very difficult reliable. He also has metabolic acidosis. This is due to lactate plus uremic toxins. Early on his bicarbonate level worsened with hydration due to the dilution. So fluids were changed from saline to a bicarb drip for this. Will follow the lactic acid (2) Acute urinary tract infection: Code(s): N39.0 - Urinary tract infection, site not specified Status: Acute Assessment and Plan: Cultures are pending. He is on vancomycin, cefepime, and Diflucan. (3) Acute hyperkalemia: Code(s): E87.5 - Hyperkalemia Status: Acute Assessment and Plan: High potassium is likely due to the renal failure. His potassium is normal this morning. (4) Altered mental status: Qualifiers: Altered mental status type: unspecified Qualified Code(s): R41.82 - Altered mental status, unspecified Code(s): R41.82 - Altered mental status, unspecified Status: Acute Assessment and Plan: This is most likely due to the renal failure plus the sepsis (5) Sepsis: Qualifiers: Sepsis acute organ dysfunction status: with acute organ dysfunction Sepsis type: sepsis due to unspecified organism Severe sepsis acute organ dysfunction type: unspecified Severe sepsis shock status: without septic shock Qualified Code(s): A41.9 - Sepsis, unspecified organism; R65.20 - Severe sepsis without septic shock Code(s): A41.9 - Sepsis, unspecified organism Status: Acute Assessment and Plan: Urine is likely infected Chest x-ray is clear Belly is soft and nontender (6) Hyponatremia: Code(s): E87.1 - Hypo-osmolality and hyponatremia Status: Acute Assessment and Plan: Sodium level is a little bit low. This is likely due to his dehydration/renal failure. It is improving gradually. History of Present Illness Reason for Consult Consult date: 02/08/23 Chief Complaint Chief complaint: Acute Renal Failure,Hematuria,Acute UTI History of Present Illness Narrative: Stanley is an unfortunate 57-year-old gentleman who has multiple medical problems including hypertension, BPH, coronary disease, kidney stones, alcohol use disorder, recent mental decline plus contractures of extremities which led to him being placed in [facility]. The patient was sent to the ER yesterday because of altered mental status and hematuria. Normally the patient converses. However mental status declined over the
[2023-02-08 11:15] LABS: Creatine Kinase 7786 U/L (55-170)
--- NOTE | 2023-02-08 14:12 | PM.IMPN ---
Progress Note: A&P Assessment and Plan (1) Acute urinary tract infection: Code(s): N39.0 - Urinary tract infection, site not specified Status: Acute Assessment and Plan: Initiated on cefepime 02/07 Follow up urine cultures (2) Acute renal failure: Qualifiers: Acute renal failure type: unspecified Qualified Code(s): N17.9 - Acute kidney failure, unspecified Code(s): N17.9 - Acute kidney failure, unspecified Status: Acute Assessment and Plan: Appreciate nephrology, etiology likely multifactorial with possible hypoperfusion injury from hypotension from sepsis, compounded with dehydration, infection (pyelo vs UTI), also has elevated CK for possible rhabdo Renal US wnl Continue IVF, monitor closely, hopefully creat will peak and begin to inprove and dialysis can be avoided (3) Acute hyperkalemia: Code(s): E87.5 - Hyperkalemia Status: Acute Assessment and Plan: Per nephrology, stable, monitor (4) Hematuria: Qualifiers: Hematuria type: unspecified type Qualified Code(s): R31.9 - Hematuria, unspecified Code(s): R31.9 - Hematuria, unspecified Status: Acute Assessment and Plan: Appreciate urology consultation, continue CBI, unsure of etiology, could be 2/2 infection? Monitor, improving, hgb stable (5) Tachycardia: Code(s): R00.0 - Tachycardia, unspecified Status: Acute Assessment and Plan: Mild, stable, improving, monitor (6) Altered mental status: Qualifiers: Altered mental status type: unspecified Qualified Code(s): R41.82 - Altered mental status, unspecified Code(s): R41.82 - Altered mental status, unspecified Status: Acute Assessment and Plan: likely 2/2 infection and uremia, monitor (7) Sepsis: Qualifiers: Sepsis acute organ dysfunction status: with acute organ dysfunction Sepsis type: sepsis due to unspecified organism Severe sepsis acute organ dysfunction type: unspecified Severe sepsis shock status: without septic shock Qualified Code(s): A41.9 - Sepsis, unspecified organism; R65.20 - Severe sepsis without septic shock Code(s): A41.9 - Sepsis, unspecified organism Status: Acute Assessment and Plan: see above Plan Family requested transfer to [facility], unnecessary as there is patient is stable and we are able to provide dialysis here, long wait for a bed and transfer request denied due to no need for transfer. DVT prophylaxis with SCDs GI prophylaxis not indicated Code status full code Subjective Date/time seen: 02/08/23 14:12 Interval history: 57M w/ PMH urolithiasis, urinary retention with chronic dave, HTN presents from [facility] with altered mental status and being treated for JUDAH and urinary retention with underlying sepsis. No overnight events noted. No chest pain or shortness of breath. No nausea, vomiting or diarrhea. No fevers or chills. Review of Systems Review of Systems: 12 point review of systems was assessed and was negative except as noted in the HPI Exam Narrative: General: No acute distress, alert and oriented per baseline, cachectic appearing HEENT: Atraumatic, normocephalic, mucous membranes moist CV: Regular rate and rhythm, S1, S2 Lungs: Clear to auscultation bilaterally, no rales or crackles noted, no wheezes, good air entry Abdomen: Soft, nontender, nondistended Extremities: Normal to inspection, no edema Skin: No rashes noted, no lesions or wounds seen Psych: Euthymic, normal affect Objective Data Vital Signs Vital Signs: Vital Signs - 24 hr 02/07/23 14:50 02/07/23 14:51 02/07/23 15:28 Temperature Pulse Rate 139 H 138 H 132 H Respiratory Rate 24 H 29 H 18 Blood Pressure 125/75 109/54 L Pulse Oximetry Oxygen Delivery Oxygen Flow Rate 02/07/23 14:52 02/07/23 15:04 02/07/23 15:48 Temperature Pulse
[2023-02-08 16:49] LABS: Vancomycin Random 7.9 ug/mL (10-20)
[2023-02-08] MEDS: CEFEPIME 1 GM/NS 50 ML 1 GM/50 ML BAG IVPB (16:56)
[2023-02-08] MEDS: ACETAMINOPHEN ELIXIR 325 MG/10.15 ML UDC 650 MG PO (20:48)
[2023-02-09] VITALS (15 sets, daily range): BP systolic 91–122; BP diastolic 45–65; PULSE 99–117; RESP 18–27; TEMP 36.4–37.7; O2SAT 91–100
[2023-02-09 04:02] LABS: Hematocrit 21.6 % (42.0-52.0); Hemoglobin 7.3 g/dL (14.0-18.0); Immature Platelet Fraction Pct 9.3 % (0.9-11.2); Mean Corpuscular HGB Conc 33.8 g/dl (32-36); Mean Corpuscular Hemoglobin 29.7 pg (26-34); Mean Corpuscular Volume 87.8 fl (80-100); Mean Platelet Volume 11.5 fl (7.4-10.4); Platelet Count Result 49 k/mm3 (150-375); Red Blood Count 2.46 M/mm3 (4.6-6.20); White Blood Count 6.9 K/mm3 (4.5-10.0)
[2023-02-09 04:21] LABS: Alanine Aminotransferase 37 U/L (6-50); Albumin Level 2.9 g/dL (3.5-5.1); Alkaline Phosphatase 89 U/L (38-126); Anion Gap 14 mmol/L (8-16); Aspartate Amino Transferase 194 U/L (17-59); Bilirubin,Total 1.2 mg/dL (0.2-1.3); Blood Urea Nitrogen 101 mg/dL (9-20); Calcium 7.5 mg/dL (8.4-10.2); Carbon Dioxide 25 mmol/L (22-30); Chloride 95 mmol/L (98-107); Estimated CRCL calculation 15 ml/min; Estimated Glomerular Filt Rate 14; Glucose 119 mg/dL (65-110); Phosphorus 6.1 mg/dL (2.5-4.5); Potassium 3.3 mmol/L (3.4-5.0); Sodium 134 mmol/L (137-145)
[2023-02-09 04:24] LABS: Lactic Acid Reflex 1.2 mmol/L (0.7-2.0)
[2023-02-09 05:31] LABS: Anisocytosis 1+ (NORMAL); Hypochromasia 2+ (NORMAL); Platelet Estimate Decreased (Adequate); Schistocytes Rare (NORMAL); Target Cells 1+ (NORMAL)
[2023-02-09] MEDS: SODIUM BICARBONATE 8.4% 150 MEQ in WATER, STERILE FOR INJECTION 950 ML 100 MEQ IV CONT (05:42)
--- NOTE | 2023-02-09 07:59 | WPDUROPN2 ---
Progress Note: A&P Assessment and Plan (1) Acute urinary tract infection: Code(s): N39.0 - Urinary tract infection, site not specified Status: Acute (2) Acute renal failure: Qualifiers: Acute renal failure type: unspecified Qualified Code(s): N17.9 - Acute kidney failure, unspecified Code(s): N17.9 - Acute kidney failure, unspecified Status: Acute (3) Hematuria: Qualifiers: Hematuria type: unspecified type Qualified Code(s): R31.9 - Hematuria, unspecified Code(s): R31.9 - Hematuria, unspecified Status: Acute Assessment and Plan: Gram neg in blood and urine -> await final ID Will stop CBI as hematuria appears to have resolved. When capable, recommend both Finasteride 5mg daily and Tamsulosin 0.4mg qHS for presumed BPH as cause for retention. Should be discharged with indwelling catheter -> f/u within several weeks for urodynamics. Subjective Subjective Date/Time Seen: 02/09/23 07:59 Interval history: Mental status improved / comfortable Review of Systems Review of Systems: ROS unobtainable: Yes unobtainable due to mental status Exam Const: General: no acute distress Resp: Effort & Inspection: normal respiratory effort GI: Inspection: non-distended GI Palp: No abdominal tenderness and No Guarding due to palpation present (GI) Auscultation: normal bowel sounds Objective Data Vital Signs Vital Signs: Vital Signs - 24 hr 02/08/23 08:00 02/08/23 08:39 02/08/23 08:55 Temperature 98.6 F 97.8 F 98.8 F Pulse Rate 109 H 106 H 114 H Respiratory Rate 20 19 26 H Blood Pressure 95/68 L 80/62 L 87/62 L Pulse Oximetry 98 19 L 95 Oxygen Delivery Oxygen Flow Rate 02/08/23 08:00 02/08/23 08:00 02/08/23 09:55 Temperature 97.6 F Pulse Rate 106 H 105 H Respiratory Rate 21 H Blood Pressure 92/65 L Pulse Oximetry 95 96 Oxygen Delivery Nasal Cannula Oxygen Flow Rate 2 02/08/23 10:00 02/08/23 10:37 02/08/23 10:53 Temperature 98.1 F 97.9 F Pulse Rate 110 H 106 H 106 H Respiratory Rate 20 23 H Blood Pressure 91/67 L 99/71 L Pulse Oximetry 95 95 Oxygen Delivery Oxygen Flow Rate 02/08/23 12:00 02/08/23 12:00 02/08/23 12:00 Temperature 98.9 F Pulse Rate 107 H 105 H Respiratory Rate 18 Blood Pressure 87/57 L Pulse Oximetry 96 96 Oxygen Delivery Nasal Cannula Oxygen Flow Rate 2 02/08/23 11:53 02/08/23 12:23 02/08/23 14:00 Temperature 97.9 F 98.2 F Pulse Rate 108 H 106 H 101 H Respiratory Rate 20 18 Blood Pressure 87/60 L 91/59 L Pulse Oximetry 96 97 Oxygen Delivery Oxygen Flow Rate 02/08/23 16:00 02/08/23 16:00 02/08/23 16:00 Temperature 98.7 F Pulse Rate 122 H 106 H Respiratory Rate 30 H Blood Pressure 105/67 Pulse Oximetry 93 93 Oxygen Delivery Nasal Cannula Oxygen Flow Rate 3 02/08/23 18:00 02/08/23 19:26 02/08/23 19:26 Temperature Pulse Rate 109 H 121 H 121 H Respiratory Rate 24 H Blood Pressure Pulse Oximetry 95 Oxygen Delivery Nasal Cannula Oxygen Flow Rate 3 02/08/23 20:00 02/08/23 20:48 02/08/23 22:00 Temperature 101.2 F H 101 F H Pulse Rate 111 H 105 H Respiratory Rate 18 Blood Pressure 96/66 L Pulse Oximetry 99 Oxygen Delivery Oxygen Flow Rate 02/08/23 22:16 02/09/23 00:00 02/09/23 00:00 Temperature 100 F H Pulse Rate 105 H 105 H Respiratory Rate 19 Blood Pressure Pulse Oximetry 100 Oxygen Delivery Nasal Cannula Oxygen Flow Rate 3 02/09/23 00:00 02/09/23 02:00 02/09/23 04:00 Temperature 99.8 F H Pulse Rate 104 H 110 H 111 H Respiratory Rate 18 Blood Pressure 91/62 L Pulse Oximetry 100 Oxygen Delivery Oxygen Flow Rate 02/09/23 04:00 02/09/23 04:00 02/09/23 06:00 Temperature 98.6 F Pulse Rate 111 H 107 H 110 H Respiratory Rate 20 23 H Blood Pressure 92/65 L Pulse Oximetry 94 93 Oxygen Delivery Nasal Cannula Oxygen Flow Rate 2
[2023-02-09] MEDS: PANTOPRAZOLE SODIUM IV 40 MG VIAL IV PUSH (09:15)
[2023-02-09] MEDS: POTASSIUM CHLORIDE 20 MEQ PACKET (FOR LIQUID) PO (09:15)
--- NOTE | 2023-02-09 10:02 | PM.PNNEP ---
Progress Note: A&P Assessment and Plan (1) Acute renal failure: Qualifiers: Acute renal failure type: unspecified Qualified Code(s): N17.9 - Acute kidney failure, unspecified Code(s): N17.9 - Acute kidney failure, unspecified Status: Acute Assessment and Plan: slow improvement noted since admission reportedly has some underlying CKD per long-term records evaluation to date: CT imaging notes No obstructing calcification or suspicious mass. Apparent bilateral renal enlargement, greater on the left; moderate bilateral perinephric stranding; mild bilateral ureterectasis and ureteral stranding renal ultrasound unremarkable urine electrolytes not done CPK elevated -- trending down UA with hematuria and likely infection multifactorial etiology: prerenal factors hypotension infection/sepsis - positive blood/urine cultures noted with possible pyelonephritis rhabdomyolysis (elevated CPK noted) transient obstruction from hematuria/clotting(?) follow trend of repeat labs and UOP (2) Sepsis: Qualifiers: Sepsis acute organ dysfunction status: with acute organ dysfunction Sepsis type: sepsis due to unspecified organism Severe sepsis acute organ dysfunction type: unspecified Severe sepsis shock status: without septic shock Qualified Code(s): A41.9 - Sepsis, unspecified organism; R65.20 - Severe sepsis without septic shock Code(s): A41.9 - Sepsis, unspecified organism Status: Acute Assessment and Plan: blood cultures with Klebsiella on antibiotics follow culture data stable hemodynamics at this time (3) Metabolic acidosis: Code(s): E87.20 - Acidosis, unspecified Status: Acute Assessment and Plan: due to JUDAH and lactic acid improving with bicarb fluids follow repeat labs (4) Hematuria: Qualifiers: Hematuria type: unspecified type Qualified Code(s): R31.9 - Hematuria, unspecified Code(s): R31.9 - Hematuria, unspecified Status: Acute Assessment and Plan: Urology following off CBI continue indwelling dave catheter no evidence of UTI by urine culture plan tamsulosin and finasteride once renal function resolves (5) Altered mental status: Qualifiers: Altered mental status type: unspecified Qualified Code(s): R41.82 - Altered mental status, unspecified Code(s): R41.82 - Altered mental status, unspecified Status: Acute Assessment and Plan: presumably due to JUDAH and sepsis mentaiion seems better today follow mental status (6) Hyponatremia: Code(s): E87.1 - Hypo-osmolality and hyponatremia Status: Acute Assessment and Plan: unclear if acute, acute on chronic, or chronic relative dehydration and JUDAH likely playing a role follow trend Will continue to follow. Subjective Date/time seen: 02/09/23 10:02 Interval history: Follow-up for acute kidney injury/acute renal failure (on chronic kidney disease). Chart reviewed -- assuming care from Dr. Chavarria; more awake/alert and conversive at the time of my visit; slow improvement in renal function with current therapy/interventions; no other acute issues/events overnight or earlier this morning. Exam Narrative: General: thin male in NAD Heart: normal S1 and S2; no rub Lungs: clear to auscultation Abdomen: soft, nontender, nondistended, positive bowel sounds Extremities: no cyanosis or clubbing; no edema Skin: warm and dry Objective Data Vital Signs Vital Signs: Vital Signs Temp Pulse Resp BP Pulse Ox O2 Del Method O2 Flow Rate 02/09/23 10:00 113 H 02/09/23 08:00 114 H 02/09/23 07:59 99.0 F 99 25 H 122/59 L 91 02/09/23 06:00 110 H 02/09/23 04:00 98.6 F 107 H 23 H 92/65 L 93 02/09/23 04:00 111 H 20 94 Nasal Cannula 2 02/09/23 04:00 111 H 02/09/23 02:00 110 H
--- NOTE | 2023-02-09 10:02 | P.PNNP_ITS ---
Progress Note: A&P Assessment and Plan (1) Acute renal failure: Qualifiers: Acute renal failure type: unspecified Qualified Code(s): N17.9 - Acute kidney failure, unspecified Code(s): N17.9 - Acute kidney failure, unspecified Status: Acute Assessment and Plan: * slow improvement noted since admission * reportedly has some underlying CKD per snf records * evaluation to date: * CT imaging notes No obstructing calcification or suspicious mass. Apparent bilateral renal enlargement, greater on the left; moderate bilateral perinephric stranding; mild bilateral ureterectasis and ureteral stranding * renal ultrasound unremarkable * urine electrolytes not done * CPK elevated -- trending down * UA with hematuria and likely infection * multifactorial etiology: * prerenal factors * hypotension * infection/sepsis - positive blood/urine cultures noted with possible pyelonephritis * rhabdomyolysis (elevated CPK noted) * transient obstruction from hematuria/clotting(?) * follow trend of repeat labs and UOP (2) Sepsis: Qualifiers: Sepsis acute organ dysfunction status: with acute organ dysfunction Sepsis type: sepsis due to unspecified organism Severe sepsis acute organ dysfunction type: unspecified Severe sepsis shock status: without septic shock Qualified Code(s): A41.9 - Sepsis, unspecified organism; R65.20 - Severe sepsis without septic shock Code(s): A41.9 - Sepsis, unspecified organism Status: Acute Assessment and Plan: * blood cultures with Klebsiella * on antibiotics * follow culture data * stable hemodynamics at this time (3) Metabolic acidosis: Code(s): E87.20 - Acidosis, unspecified Status: Acute Assessment and Plan: * due to JUDAH and lactic acid * improving with bicarb fluids * follow repeat labs (4) Hematuria: Qualifiers: Hematuria type: unspecified type Qualified Code(s): R31.9 - Hematuria, unspecified Code(s): R31.9 - Hematuria, unspecified Status: Acute Assessment and Plan: * Urology following * off CBI * continue indwelling dave catheter * no evidence of UTI by urine culture * plan tamsulosin and finasteride once renal function resolves (5) Altered mental status: Qualifiers: Altered mental status type: unspecified Qualified Code(s): R41.82 - Altered mental status, unspecified Code(s): R41.82 - Altered mental status, unspecified Status: Acute Assessment and Plan: * presumably due to JUDAH and sepsis * mentaiion seems better today * follow mental status (6) Hyponatremia: Code(s): E87.1 - Hypo-osmolality and hyponatremia Status: Acute Assessment and Plan: * unclear if acute, acute on chronic, or chronic * relative dehydration and JUDAH likely playing a role * follow trend Will continue to follow. Subjective Date/time seen: 02/09/23 10:02 Interval history: Follow-up for acute kidney injury/acute renal failure (on chronic kidney disease). Chart reviewed -- assuming care from Dr. Chavarria; more awake/alert and conversive at the time of my visit; slow improvement in renal function with current therapy/interventions; no other acute issues/events overnight or earlier this morning. Exam Narrative: General: thin male in NAD Heart: normal S1 and S2; no rub Lungs: clear to auscultation Abdomen: soft, nontender, nondistended, positive bow
--- NOTE | 2023-02-09 11:00 | PM.IMPN ---
Progress Note: A&P Assessment and Plan (1) Acute urinary tract infection: Code(s): N39.0 - Urinary tract infection, site not specified Status: Acute Assessment and Plan: Initiated on cefepime 02/07 urine cultures negative (2) Acute renal failure: Qualifiers: Acute renal failure type: unspecified Qualified Code(s): N17.9 - Acute kidney failure, unspecified Code(s): N17.9 - Acute kidney failure, unspecified Status: Acute Assessment and Plan: Appreciate nephrology, etiology likely multifactorial with possible hypoperfusion injury from hypotension from sepsis, compounded with dehydration, infection (pyelo vs UTI), also has elevated CK for possible rhabdo Renal US wnl Continue IVF, monitor closely, hopefully creat will peak and begin to inprove and dialysis can be avoided 02/09: cr coming down nicely, off IVF, only on bicarb drip, management per nephrology (3) Acute hyperkalemia: Code(s): E87.5 - Hyperkalemia Status: Acute Assessment and Plan: Per nephrology, stable, monitor (4) Hematuria: Qualifiers: Hematuria type: unspecified type Qualified Code(s): R31.9 - Hematuria, unspecified Code(s): R31.9 - Hematuria, unspecified Status: Acute Assessment and Plan: Appreciate urology consultation, continue CBI, unsure of etiology, urine culture negative Monitor, improving, hgb stable 02/09: Discontinue CBI, monitor, Urology is recommending finasteride and tamsulosin once renal function resolves, they recommend discharging with indwelling catheter for several weeks, follow-up outpatient for urodynamics with Urology (5) Tachycardia: Code(s): R00.0 - Tachycardia, unspecified Status: Acute Assessment and Plan: Mild, stable, improving, monitor (6) Altered mental status: Qualifiers: Altered mental status type: unspecified Qualified Code(s): R41.82 - Altered mental status, unspecified Code(s): R41.82 - Altered mental status, unspecified Status: Acute Assessment and Plan: likely 2/2 infection and uremia, monitor (7) Sepsis: Qualifiers: Sepsis acute organ dysfunction status: with acute organ dysfunction Sepsis type: sepsis due to unspecified organism Severe sepsis acute organ dysfunction type: unspecified Severe sepsis shock status: without septic shock Qualified Code(s): A41.9 - Sepsis, unspecified organism; R65.20 - Severe sepsis without septic shock Code(s): A41.9 - Sepsis, unspecified organism Status: Acute Assessment and Plan: 2/2 blood cultures positive for Klebsiella pneumoniae, sensitivity pending Repeat blood cultures ordered 02/09 Cont cefepime, see above Plan Family requested transfer to [facility], unnecessary as there is patient is stable and we are able to provide dialysis here, long wait for a bed and transfer request denied due to no need for transfer. DVT prophylaxis with SCDs GI prophylaxis not indicated Code status full code Subjective Date/time seen: 02/09/23 11:00 Interval history: 57M w/ PMH urolithiasis, urinary retention with chronic dave, HTN presents from [facility] with altered mental status and being treated for JUDAH and urinary retention with underlying sepsis. No overnight events noted. No chest pain or shortness of breath. No nausea, vomiting or diarrhea. No fevers or chills. Review of Systems Review of Systems: 12 point review of systems was assessed and was negative except as noted in the HPI Exam Narrative: General: No acute distress, alert and oriented per baseline, cachectic appearing HEENT: Atraumatic, normocephalic, mucous membranes moist CV: Regular rate and rhythm, S1, S2 Lungs: Clear to auscultation bilaterally, no rales or crackles noted, no wheezes, good air entry Abdomen: Soft, nontender, nondistended Extremities: Normal to inspection, no edema
--- NOTE | 2023-02-09 12:50 | PDONCCN ---
HPI - Date of Consult Date/Time: 02/09/23 12:50 Requesting Physician: Viky Caicedo MD Primary Care Provider: [employer]BER/ML[employer] SERGEANT PHYSICIAN - Consult Narrative Narrative: Stanley Ingram is a 57 year old male Patient presented to hospital with altered mental status with blood in urine and found to have hypotensive , tachycardia and acute renal failure. On presentation , he is found to have thrombocytopenia and anemia. he was also found to have positive blood culture with klebsiella pneumonia bactremia. Review of Systems - Review of Systems All systems reviewed & are unremarkable except as noted in HPI and [facility] - Social History Social History: Social History (Last Reviewed 02/08/23 @ 09:06 by Dylon Chavarria MD) Alcohol Use: Alcohol intake: former Substance Use: Substance use: unknown Others: Spiritual care concerns: No Smoking Status: Smoking status: Never smoker Social Determinants of Health: Do You Feel Safe in your Home?: Yes Has the Lack of Transportation Kept You From Medical Appointments or From Getting Medications?: No Within the Past 12 Months, Were You Worried Whether Your Food Would Run Out Before You Got Money to Buy More?: Never True What is Your Housing Situation Today?: I Have Housing Are You Worried That in the Next 2 Months, You May Not Have Your Own Housing to Live In?: No Do You Have Trouble Paying Your Heating Or Electricity Bill?: No Do You Have Trouble Paying For Medicines?: No Are You Currently Unemployed and Looking for Work?: No Highest Level of Education Completed: High School Diploma/GED Do You Have Trouble With Childcare or the Care of a Family Member?: No Exam - Vital Signs Vital Signs - 24 hr 02/08/23 14:00 02/08/23 16:00 02/08/23 16:00 Temperature 37.1 C Pulse Rate 101 H 122 H Respiratory Rate 30 H Blood Pressure 105/67 Pulse Oximetry 93 93 Oxygen Delivery Nasal Cannula Oxygen Flow Rate 3 02/08/23 16:00 02/08/23 18:00 02/08/23 19:26 Temperature Pulse Rate 106 H 109 H 121 H Respiratory Rate Blood Pressure Pulse Oximetry Oxygen Delivery Oxygen Flow Rate 02/08/23 19:26 02/08/23 20:00 02/08/23 20:48 Temperature 38.4 C H 38.3 C H Pulse Rate 121 H 111 H Respiratory Rate 24 H 18 Blood Pressure 96/66 L Pulse Oximetry 95 99 Oxygen Delivery Nasal Cannula Oxygen Flow Rate 3 02/08/23 22:00 02/08/23 22:16 02/09/23 00:00 Temperature 37.7 C H Pulse Rate 105 H 105 H Respiratory Rate Blood Pressure Pulse Oximetry Oxygen Delivery Oxygen Flow Rate 02/09/23 00:00 02/09/23 00:00 02/09/23 02:00 Temperature 37.7 C H Pulse Rate 105 H 104 H 110 H Respiratory Rate 19 18 Blood Pressure 91/62 L Pulse Oximetry 100 100 Oxygen Delivery Nasal Cannula Oxygen Flow Rate 3 02/09/23 04:00 02/09/23 04:00 02/09/23 04:00 Temperature 37.0 C Pulse Rate 111 H 111 H 107 H Respiratory Rate 20 23 H Blood Pressure 92/65 L Pulse Oximetry 94 93 Oxygen Delivery Nasal Cannula Oxygen Flow Rate 2 02/09/23 06:00 02/09/23 07:59 02/09/23 08:00 Temperature 37.2 C Pulse Rate 110 H 99 114 H Respiratory Rate 25 H Blood Pressure 122/59 L Pulse Oximetry 91 Oxygen Delivery Oxygen Flow Rate 02/09/23 10:00 02/09/23 08:00 02/09/23 12:00 Temperature Pulse Rate 113 H 114 H 114 H Respiratory Rate 24 H Blood Pressure Pulse Oximetry 95 Oxygen Delivery Nasal Cannula Oxygen Flow Rate 2 02/09/23 12:00 02/09/23 11:50 Temperature 36.4 C L Pulse Rate 114 H 112 H Respiratory Rate 27 H 23 H Blood Pressure 101/54 L Pulse Oximetry 100 93 Oxygen Delivery Nasal Cannula Oxygen Flow Rate 2 - Exam HEENT: EOMI, PERRLA, other (he looks ill and frail ) Lungs: clear to auscultation Heart: no murmurs, gallops, or rubs, regular rhythm, regular rate Abdomen: tender, other (distended ) Ext
[2023-02-09 13:19] LABS: Creatine Kinase 6486 U/L (55-170)
[2023-02-09 15:43] LABS: Immature Reticulocyte Fraction 2.3 % (3.0-15.9); Reticulocyte Percent 0.36 % (0.7-4.3); Reticulocytes Absolute 0.01 M/mm3 (0.02-0.1)
[2023-02-09 15:53] LABS: Uric Acid 11.7 mg/dL (3.5-8.5)
[2023-02-09 15:55] LABS: INR 1.4; Prothrombin Time 17.8 Seconds (11.1-14.7)
[2023-02-09 15:56] LABS: Partial Thromboplastin Time 43.7 SECONDS (22.3-36.8)
[2023-02-09 15:57] LABS: Iron 22 ug/dL (49-181); Lactate Dehydrogenase 403 U/L (120-246)
[2023-02-09 16:02] LABS: Fibrinogen 715 mg/dl (215-510)
[2023-02-09] MEDS: CEFEPIME 1 GM/NS 50 ML 1 GM/50 ML BAG IVPB (17:08)
[2023-02-09] MEDS: SODIUM BICARBONATE 8.4% 150 MEQ in WATER, STERILE FOR INJECTION 950 ML 60 MEQ IV CONT (17:13)
[2023-02-10] VITALS (20 sets, daily range): BP systolic 100–135; BP diastolic 42–80; PULSE 80–116; RESP 18–24; TEMP 36.1–37.6; O2SAT 95–100
[2023-02-10] MEDS: ACETAMINOPHEN ELIXIR 325 MG/10.15 ML UDC 650 MG PO ×3 (00:53→21:23)
[2023-02-10 04:52] LABS: Basophils Percent Auto 0.1 % (0.2-1.2); Eosinophils Absolute Auto 0.1 K/mm3 (0-0.3); Eosinophils Percent Auto 1.1 % (0-4.4); Immature Granulocyte Absolute 0.08 K/mm3 (0.00-0.031); Immature Granulocyte Percent A 1.1 % (0-0.5); Immature Platelet Fraction Pct 11.9 % (0.9-11.2); Lymphocytes Absolute Auto 0.35 K/mm3 (0.9-3.2); Lymphocytes Percent Auto 4.8 % (18.3-44.2); Mean Corpuscular HGB Conc 35.4 g/dl (32-36); Mean Corpuscular Hemoglobin 30.5 pg (26-34); Mean Corpuscular Volume 86.3 fl (80-100); Mean Platelet Volume 12.7 fl (7.4-10.4); Monocytes Absolute Auto 0.7 K/mm3 (0.1-0.6); Monocytes Percent Auto 9.3 % (2.6-8.5); Neutrophils Absolute Auto 6.2 K/mm3 (1.3-6.7); Neutrophils Percent Auto 83.6 % (45.5-73.1); Platelet Count Result 51 k/mm3 (150-375); Red Blood Count 2.26 M/mm3 (4.6-6.20); Red Cell Distribution Width 15.7 % (11.5-14.5); White Blood Count 7.4 K/mm3 (4.5-10.0)
[2023-02-10 05:06] LABS: Alanine Aminotransferase 41 U/L (6-50); Albumin Level 2.8 g/dL (3.5-5.1); Alkaline Phosphatase 110 U/L (38-126); Anion Gap 13 mmol/L (8-16); Aspartate Amino Transferase 180 U/L (17-59); Bilirubin,Total 1.1 mg/dL (0.2-1.3); Blood Urea Nitrogen 111 mg/dL (9-20); Calcium 7.4 mg/dL (8.4-10.2); Carbon Dioxide 30 mmol/L (22-30); Chloride 87 mmol/L (98-107); Glucose 147 mg/dL (65-110); Sodium 130 mmol/L (137-145)
[2023-02-10 05:25] LABS: Estimated CRCL calculation 18 ml/min; Estimated Glomerular Filt Rate 17
[2023-02-10 05:30] LABS: Hemoglobin 6.9 g/dL (14.0-18.0)
[2023-02-10 05:31] LABS: Hematocrit 19.5 % (42.0-52.0)
[2023-02-10 05:36] LABS: Hypochromasia 1+ (NORMAL); Platelet Estimate Decreased (Adequate); Schistocytes None Seen (NORMAL)
[2023-02-10] MEDS: TUBING, BLOOD PLUM PUMP TUBING 1 EACH XX (06:08)
[2023-02-10] MEDS: SODIUM CHLORIDE 0.9% IV 250 ML 30 ML IV CONT (06:52)
--- NOTE | 2023-02-10 09:50 | PM.IMPN ---
Progress Note: A&P Assessment and Plan (1) Acute urinary tract infection: Code(s): N39.0 - Urinary tract infection, site not specified Status: Acute Assessment and Plan: Initiated on cefepime 02/07 urine cultures negative (2) Acute renal failure: Qualifiers: Acute renal failure type: unspecified Qualified Code(s): N17.9 - Acute kidney failure, unspecified Code(s): N17.9 - Acute kidney failure, unspecified Status: Acute Assessment and Plan: Appreciate nephrology, etiology likely multifactorial with possible hypoperfusion injury from hypotension from sepsis, compounded with dehydration, infection (pyelo vs UTI), also has elevated CK for possible rhabdo Renal US wnl Continue IVF, monitor closely, hopefully creat will peak and begin to inprove and dialysis can be avoided 02/09: cr coming down nicely, off IVF, only on bicarb drip, management per nephrology 02/10: off bicarb, back on NS @ 75, doing well, cr 4.3, cont to monitor (3) Acute hyperkalemia: Code(s): E87.5 - Hyperkalemia Status: Acute Assessment and Plan: Per nephrology, stable, monitor (4) Hematuria: Qualifiers: Hematuria type: unspecified type Qualified Code(s): R31.9 - Hematuria, unspecified Code(s): R31.9 - Hematuria, unspecified Status: Acute Assessment and Plan: Appreciate urology consultation, continue CBI, unsure of etiology, urine culture negative Monitor, improving, hgb stable 02/09: Discontinue CBI, monitor, Urology is recommending finasteride and tamsulosin once renal function resolves, they recommend discharging with indwelling catheter for several weeks, follow-up outpatient for urodynamics with Urology (5) Tachycardia: Code(s): R00.0 - Tachycardia, unspecified Status: Acute Assessment and Plan: Mild, stable, improving, monitor (6) Altered mental status: Qualifiers: Altered mental status type: unspecified Qualified Code(s): R41.82 - Altered mental status, unspecified Code(s): R41.82 - Altered mental status, unspecified Status: Acute Assessment and Plan: likely 2/2 infection and uremia, monitor (7) Sepsis: Qualifiers: Sepsis acute organ dysfunction status: with acute organ dysfunction Sepsis type: sepsis due to unspecified organism Severe sepsis acute organ dysfunction type: unspecified Severe sepsis shock status: without septic shock Qualified Code(s): A41.9 - Sepsis, unspecified organism; R65.20 - Severe sepsis without septic shock Code(s): A41.9 - Sepsis, unspecified organism Status: Acute Assessment and Plan: 2/2 blood cultures positive for Klebsiella pneumoniae, sensitivity pending Repeat blood cultures ordered 02/09 Cont cefepime, see above (8) Pancytopenia: Code(s): D61.818 - Other pancytopenia Status: Acute Assessment and Plan: likely 2/2 sepsis, appreciate heme/onc consult keep hgb >7, platelets >20, hemolysis workup pending 02/10: hgb 6.9, will transfuse 1 unit pRBCs Plan DVT prophylaxis with SCDs GI prophylaxis with PPI Code status full code Subjective Date/time seen: 02/10/23 09:50 Interval history: 57M w/ PMH urolithiasis, urinary retention with chronic dave, HTN presents from [facility] with altered mental status and being treated for JUDAH and urinary retention with underlying sepsis. No overnight events noted. No chest pain or shortness of breath. No nausea, vomiting or diarrhea. No fevers or chills. Feels a little better than yesterday. Review of Systems Review of Systems: 12 point review of systems was assessed and was negative except as noted in the HPI Exam Narrative: General: No acute distress, alert and oriented per baseline, cachectic appearing HEENT: Atraumatic, normocephalic, mucous membranes moist CV: Regular rate and rhythm, S1, S2 Lungs: C
--- NOTE | 2023-02-10 10:16 | PM.PNNEP ---
Progress Note: A&P Assessment and Plan (1) Acute renal failure: Qualifiers: Acute renal failure type: unspecified Qualified Code(s): N17.9 - Acute kidney failure, unspecified Code(s): N17.9 - Acute kidney failure, unspecified Status: Acute Assessment and Plan: slow improvement noted since admission reportedly has some underlying CKD [facility] evaluation to date: CT imaging notes No obstructing calcification or suspicious mass. Apparent bilateral renal enlargement, greater on the left; moderate bilateral perinephric stranding; mild bilateral ureterectasis and ureteral stranding renal ultrasound unremarkable urine electrolytes not done CPK elevated -- trending down UA with hematuria multifactorial etiology: prerenal factors hypotension infection/sepsis - positive blood/urine cultures noted with possible pyelonephritis rhabdomyolysis (elevated CPK noted) transient obstruction from hematuria/clotting(?) VENUS-I use prior to presentation follow trend of repeat labs and UOP (2) Sepsis: Qualifiers: Sepsis acute organ dysfunction status: with acute organ dysfunction Sepsis type: sepsis due to unspecified organism Severe sepsis acute organ dysfunction type: unspecified Severe sepsis shock status: without septic shock Qualified Code(s): A41.9 - Sepsis, unspecified organism; R65.20 - Severe sepsis without septic shock Code(s): A41.9 - Sepsis, unspecified organism Status: Acute Assessment and Plan: blood cultures with Klebsiella follow repeat cultures on antibiotics stable hemodynamics at this time (3) Metabolic acidosis: Code(s): E87.20 - Acidosis, unspecified Status: Acute Assessment and Plan: resolved due to JUDAH and lactic acid bicarb IVFs discontinued (4) Hematuria: Qualifiers: Hematuria type: unspecified type Qualified Code(s): R31.9 - Hematuria, unspecified Code(s): R31.9 - Hematuria, unspecified Status: Acute Assessment and Plan: Urology following off CBI continue indwelling dave catheter no evidence of UTI by urine culture plan tamsulosin and finasteride once renal function resolves (5) Altered mental status: Qualifiers: Altered mental status type: unspecified Qualified Code(s): R41.82 - Altered mental status, unspecified Code(s): R41.82 - Altered mental status, unspecified Status: Acute Assessment and Plan: presumably due to JUDAH and sepsis mentation seems better at this time follow mental status (6) Anemia: Code(s): D64.9 - Anemia, unspecified Status: Acute Assessment and Plan: due to JUDAH and CKD along with hematuria suspect acute illness/inflammation playing a role PRBC transfusion as needed Hematology following consider DEEPTHI use (7) Hyponatremia: Code(s): E87.1 - Hypo-osmolality and hyponatremia Status: Acute Assessment and Plan: unclear if acute, acute on chronic, or chronic relative dehydration and JUDAH along with history of CKD likely playing a role follow trend Will continue to follow. Subjective Date/time seen: 02/10/23 10:16 Interval history: Follow-up for acute kidney injury/acute renal failure (on chronic kidney disease). Renal function as well as metabolic acidosis improving with current therapy/interventions -- IVFs changed to normal saline from bicarbonate gtt; mentation continues to improve as well; no other issues/events noted overnight or earlier this morning; H/H low this AM so received PRBC transfusion with noted incrementation in H/H. Exam Narrative: General: thin male in NAD Heart: normal S1 and S2; no rub Lungs: clear to auscultation Abdomen: soft, nontender, nondistended, positive bowel sounds Extremities: no cyanosis or clubbing; no edema Skin: warm and intact Objective Data Vital Signs
--- NOTE | 2023-02-10 10:16 | P.PNNP_ITS ---
Progress Note: A&P Assessment and Plan (1) Acute renal failure: Qualifiers: Acute renal failure type: unspecified Qualified Code(s): N17.9 - Acute kidney failure, unspecified Code(s): N17.9 - Acute kidney failure, unspecified Status: Acute Assessment and Plan: * slow improvement noted since admission * reportedly has some underlying CKD per residential records * evaluation to date: * CT imaging notes No obstructing calcification or suspicious mass. Apparent bilateral renal enlargement, greater on the left; moderate bilateral perinephric stranding; mild bilateral ureterectasis and ureteral stranding * renal ultrasound unremarkable * urine electrolytes not done * CPK elevated -- trending down * UA with hematuria * multifactorial etiology: * prerenal factors * hypotension * infection/sepsis - positive blood/urine cultures noted with possible pyelonephritis * rhabdomyolysis (elevated CPK noted) * transient obstruction from hematuria/clotting(?) * VENUS-I use prior to presentation * follow trend of repeat labs and UOP (2) Sepsis: Qualifiers: Sepsis acute organ dysfunction status: with acute organ dysfunction Sepsis type: sepsis due to unspecified organism Severe sepsis acute organ dysfunction type: unspecified Severe sepsis shock status: without septic shock Qualified Code(s): A41.9 - Sepsis, unspecified organism; R65.20 - Severe sepsis without septic shock Code(s): A41.9 - Sepsis, unspecified organism Status: Acute Assessment and Plan: * blood cultures with Klebsiella * follow repeat cultures * on antibiotics * stable hemodynamics at this time (3) Metabolic acidosis: Code(s): E87.20 - Acidosis, unspecified Status: Acute Assessment and Plan: * resolved * due to JUDAH and lactic acid * bicarb IVFs discontinued (4) Hematuria: Qualifiers: Hematuria type: unspecified type Qualified Code(s): R31.9 - Hematuria, unspecified Code(s): R31.9 - Hematuria, unspecified Status: Acute Assessment and Plan: * Urology following * off CBI * continue indwelling dave catheter * no evidence of UTI by urine culture * plan tamsulosin and finasteride once renal function resolves (5) Altered mental status: Qualifiers: Altered mental status type: unspecified Qualified Code(s): R41.82 - Altered mental status, unspecified Code(s): R41.82 - Altered mental status, unspecified Status: Acute Assessment and Plan: * presumably due to JUDAH and sepsis * mentation seems better at this time * follow mental status (6) Anemia: Code(s): D64.9 - Anemia, unspecified Status: Acute Assessment and Plan: * due to JUDAH and CKD along with hematuria * suspect acute illness/inflammation playing a role * PRBC transfusion as needed * Hematology following * consider DEEPTHI use (7) Hyponatremia: Code(s): E87.1 - Hypo-osmolality and hyponatremia Status: Acute Assessment and Plan: * unclear if acute, acute on chronic, or chronic * relative dehydration and JUDAH along with history of CKD likely playing a role * follow trend Will continue to follow. Subjective Date/time seen: 02/10/23 10:16 Interval history: Follow-up for acute kidney injury/acute renal failure (on chronic kidney disease). Renal function as well as metabolic acidosis improving with current therapy/interventions -- IVFs changed to
[2023-02-10 11:14] LABS: Hematocrit 25.8 % (42.0-52.0); Hemoglobin 8.8 g/dL (14.0-18.0)
[2023-02-10] MEDS: PANTOPRAZOLE SODIUM IV 40 MG VIAL IV PUSH (13:43)
[2023-02-10] MEDS: SODIUM CHLORIDE 0.9% IV 1,000 ML 75 ML IV CONT (13:44)
[2023-02-10] MEDS: CEFEPIME 1 GM/NS 50 ML 1 GM/50 ML BAG IVPB (17:39)
[2023-02-11] VITALS (14 sets, daily range): BP systolic 100–140; BP diastolic 63–83; PULSE 92–111; RESP 14–21; TEMP 36.6–37.3; O2SAT 95–100
[2023-02-11] MEDS: SODIUM CHLORIDE 0.9% IV 1,000 ML 75 ML IV CONT ×2 (03:45→16:44)
[2023-02-11 04:58] LABS: Basophils Percent Auto 0.4 % (0.2-1.2); Eosinophils Absolute Auto 0.1 K/mm3 (0-0.3); Hemoglobin 8.3 g/dL (14.0-18.0); Immature Granulocyte Absolute 0.19 K/mm3 (0.00-0.031); Immature Granulocyte Percent A 1.8 % (0-0.5); Immature Platelet Fraction Pct 10.1 % (0.9-11.2); Lymphocytes Absolute Auto 0.45 K/mm3 (0.9-3.2); Lymphocytes Percent Auto 4.2 % (18.3-44.2); Mean Corpuscular HGB Conc 34.6 g/dl (32-36); Mean Corpuscular Hemoglobin 30.9 pg (26-34); Mean Corpuscular Volume 89.2 fl (80-100); Monocytes Absolute Auto 1.1 K/mm3 (0.1-0.6); Neutrophils Absolute Auto 8.8 K/mm3 (1.3-6.7); Neutrophils Percent Auto 82.6 % (45.5-73.1); Platelet Count Result 74 k/mm3 (150-375); Red Blood Count 2.69 M/mm3 (4.6-6.20); Red Cell Distribution Width 15.9 % (11.5-14.5); White Blood Count 10.7 K/mm3 (4.5-10.0)
[2023-02-11 05:17] LABS: Alanine Aminotransferase 49 U/L (6-50); Albumin Level 2.9 g/dL (3.5-5.1); Alkaline Phosphatase 166 U/L (38-126); Anion Gap 10 mmol/L (8-16); Aspartate Amino Transferase 181 U/L (17-59); Bilirubin,Total 1.4 mg/dL (0.2-1.3); Blood Urea Nitrogen 107 mg/dL (9-20); Calcium 7.8 mg/dL (8.4-10.2); Carbon Dioxide 30 mmol/L (22-30); Chloride 90 mmol/L (98-107); Creatine Kinase 2160 U/L (55-170); Estimated CRCL calculation 22 ml/min; Estimated Glomerular Filt Rate 21; Glucose 111 mg/dL (65-110); Potassium 2.9 mmol/L (3.4-5.0); Sodium 130 mmol/L (137-145)
[2023-02-11 05:28] LABS: Platelet Estimate Decreased (Adequate)
[2023-02-11 05:29] LABS: Anisocytosis 1+ (NORMAL); Hypochromasia 1+ (NORMAL); Large Platelets Present; Schistocytes None Seen (NORMAL); Target Cells 1+ (NORMAL)
[2023-02-11] MEDS: PANTOPRAZOLE SODIUM IV 40 MG VIAL IV PUSH (08:45)
--- NOTE | 2023-02-11 09:25 | PM.IMPN ---
Progress Note: A&P Assessment and Plan (1) Acute urinary tract infection: Code(s): N39.0 - Urinary tract infection, site not specified Status: Acute Assessment and Plan: Initiated on cefepime 02/07 urine cultures negative (2) Acute renal failure: Qualifiers: Acute renal failure type: unspecified Qualified Code(s): N17.9 - Acute kidney failure, unspecified Code(s): N17.9 - Acute kidney failure, unspecified Status: Acute Assessment and Plan: Appreciate nephrology, etiology likely multifactorial with possible hypoperfusion injury from hypotension from sepsis, compounded with dehydration, infection (pyelo vs UTI), also has elevated CK for possible rhabdo Renal US wnl Continue IVF, monitor closely, hopefully creat will peak and begin to inprove and dialysis can be avoided 02/09: cr coming down nicely, off IVF, only on bicarb drip, management per nephrology 02/10: off bicarb, back on NS @ 75, doing well, cr 4.3, cont to monitor 02/11: Creatinine 3.6, continue IV fluids (3) Acute hyperkalemia: Code(s): E87.5 - Hyperkalemia Status: Acute Assessment and Plan: Per nephrology, stable, monitor Resolved, now hypokalemic, replaced and recheck (4) Hematuria: Qualifiers: Hematuria type: unspecified type Qualified Code(s): R31.9 - Hematuria, unspecified Code(s): R31.9 - Hematuria, unspecified Status: Acute Assessment and Plan: Appreciate urology consultation, continue CBI, unsure of etiology, urine culture negative Monitor, improving, hgb stable 02/09: Discontinue CBI, monitor, Urology is recommending finasteride and tamsulosin once renal function resolves, they recommend discharging with indwelling catheter for several weeks, follow-up outpatient for urodynamics with Urology (5) Tachycardia: Code(s): R00.0 - Tachycardia, unspecified Status: Acute Assessment and Plan: Mild, stable, improving, monitor (6) Altered mental status: Qualifiers: Altered mental status type: unspecified Qualified Code(s): R41.82 - Altered mental status, unspecified Code(s): R41.82 - Altered mental status, unspecified Status: Acute Assessment and Plan: likely 2/2 infection and uremia, monitor Resolved (7) Sepsis: Qualifiers: Sepsis acute organ dysfunction status: with acute organ dysfunction Sepsis type: sepsis due to unspecified organism Severe sepsis acute organ dysfunction type: unspecified Severe sepsis shock status: without septic shock Qualified Code(s): A41.9 - Sepsis, unspecified organism; R65.20 - Severe sepsis without septic shock Code(s): A41.9 - Sepsis, unspecified organism Status: Acute Assessment and Plan: 2/2 blood cultures positive for Klebsiella pneumoniae, sensitivity pending Repeat blood cultures ordered 02/09 Cont cefepime, see above Repeat blood cultures NGTD, continue to monitor (8) Pancytopenia: Code(s): D61.818 - Other pancytopenia Status: Acute Assessment and Plan: likely 2/2 sepsis, appreciate heme/onc consult keep hgb >7, platelets >20, hemolysis workup pending 02/10: hgb 6.9, will transfuse 1 unit pRBCs /: Hemoglobin stable at 8.3 Plan DVT prophylaxis with SCDs GI prophylaxis with PPI Code status full code Subjective Date/time seen: 02/11/23 09:25 Interval history: 57M w/ PMH urolithiasis, urinary retention with chronic dave, HTN presents from [facility] with altered mental status and being treated for JUDAH and urinary retention with underlying sepsis. No overnight events noted. No chest pain or shortness of breath. No nausea, vomiting or diarrhea. No fevers or chills. Feels a little better than yesterday. Review of Systems Review of Systems: 12 point review of systems was assessed and was negative except as noted in the HPI Exam Narrative: Wes
[2023-02-11] MEDS: POTASSIUM CHLORIDE 20 MEQ ER TABLET 40 MEQ PO (10:11)
--- NOTE | 2023-02-11 10:15 | PM.PNNEP ---
Progress Note: A&P Assessment and Plan (1) Acute renal failure: Qualifiers: Acute renal failure type: unspecified Qualified Code(s): N17.9 - Acute kidney failure, unspecified Code(s): N17.9 - Acute kidney failure, unspecified Status: Acute Assessment and Plan: slow improvement noted since admission reportedly has some underlying CKD per senior care records - trying to obtain records... evaluation to date: CT imaging notes No obstructing calcification or suspicious mass. Apparent bilateral renal enlargement, greater on the left; moderate bilateral perinephric stranding; mild bilateral ureterectasis and ureteral stranding renal ultrasound unremarkable urine electrolytes not done CPK elevated -- trending down UA with hematuria multifactorial etiology: prerenal factors hypotension infection/sepsis - positive blood/urine cultures noted with possible pyelonephritis rhabdomyolysis (elevated CPK noted) transient obstruction from hematuria/clotting(?) VENUS-I use prior to presentation follow trend of repeat labs and UOP (2) Sepsis: Qualifiers: Sepsis acute organ dysfunction status: with acute organ dysfunction Sepsis type: sepsis due to unspecified organism Severe sepsis acute organ dysfunction type: unspecified Severe sepsis shock status: without septic shock Qualified Code(s): A41.9 - Sepsis, unspecified organism; R65.20 - Severe sepsis without septic shock Code(s): A41.9 - Sepsis, unspecified organism Status: Acute Assessment and Plan: blood cultures with Klebsiella follow repeat cultures on antibiotics stable hemodynamics at this time (3) Metabolic acidosis: Code(s): E87.20 - Acidosis, unspecified Status: Acute Assessment and Plan: resolved due to JUDAH and lactic acidosis bicarb IVFs discontinued (4) Hematuria: Qualifiers: Hematuria type: unspecified type Qualified Code(s): R31.9 - Hematuria, unspecified Code(s): R31.9 - Hematuria, unspecified Status: Acute Assessment and Plan: Urology following off CBI continue indwelling dave catheter no evidence of UTI by urine culture plan tamsulosin and finasteride once renal function resolves (5) Altered mental status: Qualifiers: Altered mental status type: unspecified Qualified Code(s): R41.82 - Altered mental status, unspecified Code(s): R41.82 - Altered mental status, unspecified Status: Acute Assessment and Plan: presumably due to JUDAH and sepsis mentation seems better at this time follow mental status (6) Anemia: Code(s): D64.9 - Anemia, unspecified Status: Acute Assessment and Plan: due to JUDAH and CKD along with hematuria suspect acute illness/inflammation playing a role PRBC transfusion as needed Hematology following consider DEEPTHI use (7) Hyponatremia: Code(s): E87.1 - Hypo-osmolality and hyponatremia Status: Acute Assessment and Plan: unclear if acute, acute on chronic, or chronic relative dehydration and JUDAH along with history of CKD likely playing a role follow trend Will continue to follow. Subjective Date/time seen: 02/11/23 10:15 Interval history: Follow-up for acute kidney injury/acute renal failure (on chronic kidney disease). No new issues or concerns to report per patient other than fatigue; renal function continues to improve as noted by trend of AM labs; no other issues/events overnight or earlier this morning.; no aute distress on my visit. Exam Narrative: General: thin male in NAD Heart: normal S1 and S2; no rub Lungs: clear to auscultation Abdomen: soft, nontender, nondistended, positive bowel sounds Extremities: no cyanosis or clubbing; no edema Skin: no rash Objective Data Vital Signs Vital Signs: Vital Signs Temp Pulse Resp BP Pulse Ox O2 Del Method
--- NOTE | 2023-02-11 10:15 | P.PNNP_ITS ---
Progress Note: A&P Assessment and Plan (1) Acute renal failure: Qualifiers: Acute renal failure type: unspecified Qualified Code(s): N17.9 - Acute kidney failure, unspecified Code(s): N17.9 - Acute kidney failure, unspecified Status: Acute Assessment and Plan: * slow improvement noted since admission * reportedly has some underlying CKD per [facility] records - trying to obtain records... * evaluation to date: * CT imaging notes No obstructing calcification or suspicious mass. Apparent bilateral renal enlargement, greater on the left; moderate bilateral perinephric stranding; mild bilateral ureterectasis and ureteral stranding * renal ultrasound unremarkable * urine electrolytes not done * CPK elevated -- trending down * UA with hematuria * multifactorial etiology: * prerenal factors * hypotension * infection/sepsis - positive blood/urine cultures noted with possible pyelonephritis * rhabdomyolysis (elevated CPK noted) * transient obstruction from hematuria/clotting(?) * VENUS-I use prior to presentation * follow trend of repeat labs and UOP (2) Sepsis: Qualifiers: Sepsis acute organ dysfunction status: with acute organ dysfunction Sepsis type: sepsis due to unspecified organism Severe sepsis acute organ dysfunction type: unspecified Severe sepsis shock status: without septic shock Qualified Code(s): A41.9 - Sepsis, unspecified organism; R65.20 - Severe sepsis without septic shock Code(s): A41.9 - Sepsis, unspecified organism Status: Acute Assessment and Plan: * blood cultures with Klebsiella * follow repeat cultures * on antibiotics * stable hemodynamics at this time (3) Metabolic acidosis: Code(s): E87.20 - Acidosis, unspecified Status: Acute Assessment and Plan: * resolved * due to JUDAH and lactic acidosis * bicarb IVFs discontinued (4) Hematuria: Qualifiers: Hematuria type: unspecified type Qualified Code(s): R31.9 - Hematuria, unspecified Code(s): R31.9 - Hematuria, unspecified Status: Acute Assessment and Plan: * Urology following * off CBI * continue indwelling dave catheter * no evidence of UTI by urine culture * plan tamsulosin and finasteride once renal function resolves (5) Altered mental status: Qualifiers: Altered mental status type: unspecified Qualified Code(s): R41.82 - Altered mental status, unspecified Code(s): R41.82 - Altered mental status, unspecified Status: Acute Assessment and Plan: * presumably due to JUDAH and sepsis * mentation seems better at this time * follow mental status (6) Anemia: Code(s): D64.9 - Anemia, unspecified Status: Acute Assessment and Plan: * due to JUDAH and CKD along with hematuria * suspect acute illness/inflammation playing a role * PRBC transfusion as needed * Hematology following * consider DEEPTHI use (7) Hyponatremia: Code(s): E87.1 - Hypo-osmolality and hyponatremia Status: Acute Assessment and Plan: * unclear if acute, acute on chronic, or chronic * relative dehydration and JUDAH along with history of CKD likely playing a role * follow trend Will continue to follow. Subjective Date/time seen: 02/11/23 10:15 Interval history: Follow-up for acute kidney injury/acute renal failure (on chronic kidney disease). No new issues or concerns to report per patient other than fatigue; lucila
[2023-02-11] MEDS: CEFEPIME 1 GM/NS 50 ML 1 GM/50 ML BAG IVPB (16:42)
[2023-02-12] VITALS (13 sets, daily range): BP systolic 116–149; BP diastolic 66–75; PULSE 89–106; RESP 14–22; TEMP 36.4–37.1; O2SAT 92–100
[2023-02-12 05:08] LABS: Basophils Absolute Auto 0.1 K/mm3 (0.0-0.1); Basophils Percent Auto 0.6 % (0.2-1.2); Eosinophils Absolute Auto 0.1 K/mm3 (0-0.3); Eosinophils Percent Auto 0.7 % (0-4.4); Hematocrit 28.9 % (42.0-52.0); Hemoglobin 9.5 g/dL (14.0-18.0); Immature Granulocyte Absolute 0.24 K/mm3 (0.00-0.031); Immature Granulocyte Percent A 2.2 % (0-0.5); Immature Platelet Fraction Pct 7.7 % (0.9-11.2); Lymphocytes Absolute Auto 0.54 K/mm3 (0.9-3.2); Mean Corpuscular HGB Conc 32.9 g/dl (32-36); Mean Corpuscular Hemoglobin 30.8 pg (26-34); Mean Corpuscular Volume 93.8 fl (80-100); Mean Platelet Volume 11.6 fl (7.4-10.4); Monocytes Absolute Auto 0.8 K/mm3 (0.1-0.6); Monocytes Percent Auto 7.6 % (2.6-8.5); Neutrophils Absolute Auto 9.1 K/mm3 (1.3-6.7); Neutrophils Percent Auto 83.9 % (45.5-73.1); Platelet Count Result 119 k/mm3 (150-375); Red Blood Count 3.08 M/mm3 (4.6-6.20); Red Cell Distribution Width 17.2 % (11.5-14.5); White Blood Count 10.8 K/mm3 (4.5-10.0)
[2023-02-12] MEDS: SODIUM CHLORIDE 0.9% IV 1,000 ML 75 ML IV CONT ×2 (05:36→17:51)
[2023-02-12 05:43] LABS: Anisocytosis 1+ (NORMAL); Schistocytes Rare (NORMAL)
--- NOTE | 2023-02-12 05:55 | ADMGEN ---
This patient, Stanley Ingram, was admitted to 2 Medical Room 242-. Patient/family oriented to hospital policies and general routines including ID bracelet, bed and alarms, visiting hours, pain management, procedures, bathroom and other care routines, personal items, smoking policy, room service/diet, and visiting hours. Information on how to activate the Rapid Response Team has been discussed. Patient/Family are encouraged to report perceived risks to care and to ask questions if they do not understand what they are told or what they should do.
--- NOTE | 2023-02-12 06:21 | PC.NURSE ---
Patient transferred to Replaced by [facility]. RN called son.
[2023-02-12 06:41] LABS: Alanine Aminotransferase 47 U/L (6-50); Albumin Level 2.9 g/dL (3.5-5.1); Alkaline Phosphatase 176 U/L (38-126); Anion Gap 9 mmol/L (8-16); Aspartate Amino Transferase 122 U/L (17-59); Bilirubin,Total 1.9 mg/dL (0.2-1.3); Blood Urea Nitrogen 89 mg/dL (9-20); Carbon Dioxide 29 mmol/L (22-30); Chloride 97 mmol/L (98-107); Estimated CRCL calculation 28 ml/min; Estimated Glomerular Filt Rate 27; Glucose 128 mg/dL (65-110); Potassium 2.8 mmol/L (3.4-5.0); Sodium 135 mmol/L (137-145)
[2023-02-12] MEDS: POTASSIUM CHLORIDE INJ 40 MEQ in SODIUM CHLORIDE 0.9% IV 500 ML 130 MEQ IVPB (07:29)
[2023-02-12] MEDS: PANTOPRAZOLE SODIUM IV 40 MG VIAL IV PUSH (08:36)
[2023-02-12 08:43] LABS: Glucose Point of Care 174 mg/dl (65-105)
[2023-02-12 11:52] LABS: Glucose Point of Care 110 mg/dl (65-105)
--- NOTE | 2023-02-12 12:17 | P.PNNP_ITS ---
Progress Note: A&P Assessment and Plan (1) Acute renal failure: Qualifiers: Acute renal failure type: unspecified Qualified Code(s): N17.9 - Acute kidney failure, unspecified Code(s): N17.9 - Acute kidney failure, unspecified Status: Acute Assessment and Plan: * slow improvement noted since admission * reportedly has some underlying CKD per senior living records - trying to obtain records... * evaluation to date: * CT imaging notes No obstructing calcification or suspicious mass. Apparent bilateral renal enlargement, greater on the left; moderate bilateral perinephric stranding; mild bilateral ureterectasis and ureteral stranding * renal ultrasound unremarkable * urine electrolytes not done * CPK elevated -- trending down * UA with hematuria * multifactorial etiology: * prerenal factors * hypotension * infection/sepsis - positive blood/urine cultures noted with possible pyelonephritis * rhabdomyolysis (elevated CPK noted) * transient obstruction from hematuria/clotting(?) * VENUS-I use prior to presentation * follow trend of repeat labs and UOP (2) Sepsis: Qualifiers: Sepsis acute organ dysfunction status: with acute organ dysfunction Sepsis type: sepsis due to unspecified organism Severe sepsis acute organ dysfunction type: unspecified Severe sepsis shock status: without septic shock Qualified Code(s): A41.9 - Sepsis, unspecified organism; R65.20 - Severe sepsis without septic shock Code(s): A41.9 - Sepsis, unspecified organism Status: Acute Assessment and Plan: * blood cultures with Klebsiella * follow repeat cultures * on antibiotics * stable hemodynamics at this time (3) Metabolic acidosis: Code(s): E87.20 - Acidosis, unspecified Status: Acute Assessment and Plan: * resolved * due to JUDAH and lactic acidosis * bicarb IVFs discontinued (4) Hematuria: Qualifiers: Hematuria type: unspecified type Qualified Code(s): R31.9 - Hematuria, unspecified Code(s): R31.9 - Hematuria, unspecified Status: Acute Assessment and Plan: * Urology following * off CBI * continue indwelling dave catheter * no evidence of UTI by urine culture * plan tamsulosin and finasteride once renal function resolves (5) Altered mental status: Qualifiers: Altered mental status type: unspecified Qualified Code(s): R41.82 - Altered mental status, unspecified Code(s): R41.82 - Altered mental status, unspecified Status: Acute Assessment and Plan: * presumably due to JUDAH and sepsis * mentation seems better at this time * follow mental status (6) Anemia: Code(s): D64.9 - Anemia, unspecified Status: Acute Assessment and Plan: * due to JUDAH and CKD along with hematuria * suspect acute illness/inflammation playing a role * PRBC transfusion as needed * Hematology following * consider DEEPTHI use (7) Hyponatremia: Code(s): E87.1 - Hypo-osmolality and hyponatremia Status: Acute Assessment and Plan: * unclear if acute, acute on chronic, or chronic * relative dehydration and JUDAH along with history of CKD likely playing a role * follow trend Will continue to follow. Subjective Date/time seen: 02/12/23 12:17 Interval history: Follow-up for acute kidney injury/acute renal failure (on chronic kidney disease). Appears to be doing reasonably well at the time of my visit; reports im
--- NOTE | 2023-02-12 12:17 | PM.PNNEP ---
Progress Note: A&P Assessment and Plan (1) Acute renal failure: Qualifiers: Acute renal failure type: unspecified Qualified Code(s): N17.9 - Acute kidney failure, unspecified Code(s): N17.9 - Acute kidney failure, unspecified Status: Acute Assessment and Plan: slow improvement noted since admission reportedly has some underlying CKD per care home records - trying to obtain records... evaluation to date: CT imaging notes No obstructing calcification or suspicious mass. Apparent bilateral renal enlargement, greater on the left; moderate bilateral perinephric stranding; mild bilateral ureterectasis and ureteral stranding renal ultrasound unremarkable urine electrolytes not done CPK elevated -- trending down UA with hematuria multifactorial etiology: prerenal factors hypotension infection/sepsis - positive blood/urine cultures noted with possible pyelonephritis rhabdomyolysis (elevated CPK noted) transient obstruction from hematuria/clotting(?) VENUS-I use prior to presentation follow trend of repeat labs and UOP (2) Sepsis: Qualifiers: Sepsis acute organ dysfunction status: with acute organ dysfunction Sepsis type: sepsis due to unspecified organism Severe sepsis acute organ dysfunction type: unspecified Severe sepsis shock status: without septic shock Qualified Code(s): A41.9 - Sepsis, unspecified organism; R65.20 - Severe sepsis without septic shock Code(s): A41.9 - Sepsis, unspecified organism Status: Acute Assessment and Plan: blood cultures with Klebsiella follow repeat cultures on antibiotics stable hemodynamics at this time (3) Metabolic acidosis: Code(s): E87.20 - Acidosis, unspecified Status: Acute Assessment and Plan: resolved due to JUDAH and lactic acidosis bicarb IVFs discontinued (4) Hematuria: Qualifiers: Hematuria type: unspecified type Qualified Code(s): R31.9 - Hematuria, unspecified Code(s): R31.9 - Hematuria, unspecified Status: Acute Assessment and Plan: Urology following off CBI continue indwelling dave catheter no evidence of UTI by urine culture plan tamsulosin and finasteride once renal function resolves (5) Altered mental status: Qualifiers: Altered mental status type: unspecified Qualified Code(s): R41.82 - Altered mental status, unspecified Code(s): R41.82 - Altered mental status, unspecified Status: Acute Assessment and Plan: presumably due to JUDAH and sepsis mentation seems better at this time follow mental status (6) Anemia: Code(s): D64.9 - Anemia, unspecified Status: Acute Assessment and Plan: due to JUDAH and CKD along with hematuria suspect acute illness/inflammation playing a role PRBC transfusion as needed Hematology following consider DEEPTHI use (7) Hyponatremia: Code(s): E87.1 - Hypo-osmolality and hyponatremia Status: Acute Assessment and Plan: unclear if acute, acute on chronic, or chronic relative dehydration and JUDAH along with history of CKD likely playing a role follow trend Will continue to follow. Subjective Date/time seen: 02/12/23 12:17 Interval history: Follow-up for acute kidney injury/acute renal failure (on chronic kidney disease). Appears to be doing reasonably well at the time of my visit; reports improvement in comparison to yesterday; renal function continues to improve with reasonable urine output noted; no other issues/events overnight or earlier today; no apparent distress voiced. Exam Narrative: General: thin male in NAD Heart: normal S1 and S2; no rub Lungs: clear to auscultation Abdomen: soft, nontender, nondistended, positive bowel sounds Extremities: no cyanosis or clubbing; no edema Skin: no nodules Objective Data Vital Signs Vital Signs: Vital Signs Temp
--- NOTE | 2023-02-12 15:19 | PM.IMPN ---
Progress Note: A&P Assessment and Plan (1) Acute urinary tract infection: Code(s): N39.0 - Urinary tract infection, site not specified Status: Acute Assessment and Plan: Initiated on cefepime 02/07 Urine cultures negative (2) Acute renal failure: Qualifiers: Acute renal failure type: unspecified Qualified Code(s): N17.9 - Acute kidney failure, unspecified Code(s): N17.9 - Acute kidney failure, unspecified Status: Acute Assessment and Plan: Appreciate nephrology, etiology likely multifactorial with possible hypoperfusion injury from hypotension from sepsis, compounded with dehydration, infection (pyelo vs UTI), also has elevated CK for possible rhabdo Renal US wnl Continue IVF, monitor closely, improving, creat down to 2.9 (3) Acute hyperkalemia: Code(s): E87.5 - Hyperkalemia Status: Acute Assessment and Plan: Per nephrology, stable, monitor Resolved, now hypokalemic, replaced and recheck (4) Hematuria: Qualifiers: Hematuria type: unspecified type Qualified Code(s): R31.9 - Hematuria, unspecified Code(s): R31.9 - Hematuria, unspecified Status: Acute Assessment and Plan: Appreciate urology consultation, continue CBI, unsure of etiology, urine culture negative Monitor, improving, hgb stable 02/09: Discontinue CBI, monitor, Urology is recommending finasteride and tamsulosin once renal function resolves, they recommend discharging with indwelling catheter for several weeks, follow-up outpatient for urodynamics with Urology (5) Tachycardia: Code(s): R00.0 - Tachycardia, unspecified Status: Acute Assessment and Plan: Mild, stable, improving, monitor (6) Altered mental status: Qualifiers: Altered mental status type: unspecified Qualified Code(s): R41.82 - Altered mental status, unspecified Code(s): R41.82 - Altered mental status, unspecified Status: Acute Assessment and Plan: likely 2/2 infection and uremia, monitor Resolved (7) Sepsis: Qualifiers: Sepsis acute organ dysfunction status: with acute organ dysfunction Sepsis type: sepsis due to unspecified organism Severe sepsis acute organ dysfunction type: unspecified Severe sepsis shock status: without septic shock Qualified Code(s): A41.9 - Sepsis, unspecified organism; R65.20 - Severe sepsis without septic shock Code(s): A41.9 - Sepsis, unspecified organism Status: Acute Assessment and Plan: 2/2 blood cultures positive for Klebsiella pneumoniae, sensitivity pending Repeat blood cultures ordered 02/09 Cont cefepime, see above Repeat blood cultures NGTD, continue to monitor (8) Pancytopenia: Code(s): D61.818 - Other pancytopenia Status: Acute Assessment and Plan: likely 2/2 sepsis, appreciate heme/onc consult keep hgb >7, platelets >20, hemolysis workup pending 02/10: hgb 6.9, will transfuse 1 unit pRBCs 02/11: Hemoglobin stable at 8.3 02/12: hgb stable Plan DVT prophylaxis with SCDs GI prophylaxis with PPI Code status full code Subjective Date/time seen: 02/12/23 15:19 Interval history: 57M w/ PMH urolithiasis, urinary retention with chronic dave, HTN presents from [facility] with altered mental status and being treated for JUDAH and urinary retention with underlying sepsis. No overnight events noted. No chest pain or shortness of breath. No nausea, vomiting or diarrhea. No fevers or chills. Unchanged. Review of Systems Review of Systems: 12 point review of systems was assessed and was negative except as noted in the HPI Exam Narrative: General: No acute distress, alert and oriented per baseline, cachectic appearing HEENT: Atraumatic, normocephalic, mucous membranes moist CV: Regular rate and rhythm, S1, S2 Lungs: Clear to auscultation bilaterally, no rales or crackles noted, no wheeze
[2023-02-12 17:09] LABS: Glucose Point of Care 112 mg/dl (65-105)
[2023-02-12] MEDS: CEFEPIME 1 GM/NS 50 ML 1 GM/50 ML BAG IVPB (17:50)
[2023-02-12] MEDS: POTASSIUM CHLORIDE 20 MEQ ER TABLET 40 MEQ PO (17:51)
[2023-02-12 20:21] LABS: Glucose Point of Care 142 mg/dl (65-105)
[2023-02-13] VITALS (9 sets, daily range): BP systolic 124–148; BP diastolic 70–80; PULSE 98–108; RESP 16–18; TEMP 36.4–37.1; O2SAT 93–97
--- NOTE | 2023-02-13 | ECHO_ITS ---
Patient Info Name: Stanley Ingram Age: 57 years : 1965 Gender: Male Ht: 72 in Wt: 176 lbs BSA: 2.02 m2 HR: 105 bpm BP: 136 / 75 mmHg Heart Rhythm: Tachycardia Technical Quality: Good Exam Date: 02/13/2023 12:22 PM Exam Location: Echo Lab Patient Status: Inpatient Admit Date: 02/07/2023 Staff Ordering Physician: Mone Caro DO Computer System Specialist: Minna Stewart RDCS Attending Provider: Viky Caicedo MD Referring Physician: Gordo JEFF; Exam Type: CA echo doppler color flow Study Info Indications - Bacteremia, concern for vegetation Complete two-dimensional, color flow and Doppler transthoracic echocardiogram is performed. Summary 1. Complete two-dimensional, color flow and Doppler transthoracic echocardiogram is performed. 2. Left ventricular chamber dimension is normal. 3. Left ventricular systolic function is normal, estimated at 65-70%. 4. The left ventricular diastolic function is grade I diastolic dysfunction. 5. E/e' 6 is not elevated. 6. There is moderate aortic valve sclerosis. 7. There is trace tricuspid valve regurgitation. 8. No pulmonary hypertension, estimated pulmonary arterial systolic pressure is 32 mmHg. Left Ventricle E/e' 6 is not elevated. Left ventricular chamber dimension is normal. Left ventricular systolic function is normal, estimated at 65-70%. The left ventricular diastolic function is grade I diastolic dysfunction. Right Ventricle Right ventricular systolic function is normal and with normal TAPSE 1.8 cm. Right ventricular chamber dimension is normal. Left Atria Left atrial chamber dimension is normal. Right Atria Right atrial chamber dimension is normal. Aortic Valve The aortic valve is trileaflet. There is moderate aortic valve sclerosis. There is no aortic valve stenosis. There is no aortic valve regurgitation. No aortic valve vegetation visualized. Pulmonic Valve There is no pulmonic regurgitation. No pulmonic valve vegetation visualized. Mitral Valve There is no mitral valve stenosis. There is no mitral valve regurgitation. No mitral valve vegetation visualized. Tricuspid Valve There is trace tricuspid valve regurgitation. No pulmonary hypertension, estimated pulmonary arterial systolic pressure is 32 mmHg. No tricuspid valve vegetation visualized. Pericardium/Pleural There is no pericardial effusion. Inferior Vena Cava Normal inferior vena cava with >50% collapse upon inspiration consistent with normal right atrial pressure, 5 mmHg. Aorta The aortic root size at the sinus of Valsalva is normal. Left Ventricular Outflow Tract Name Value Normal LVOT 2D LVOT Diameter 2.0 cm LVOT Doppler LVOT Peak Gradient 7 mmHg LVOT Mean Gradient 3 mmHg LVOT VTI 18 cm LVOT VTI/AV VTI Ratio 0.8 LVOT Stroke Volume 59 ml LVOT CO 6.1 l/min LVOT CI 3.0 l/min/m2 Pulmonic Valve Name Value Normal
[2023-02-13 05:59] LABS: Basophils Percent Auto 0.3 % (0.2-1.2); Eosinophils Absolute Auto 0.1 K/mm3 (0-0.3); Eosinophils Percent Auto 0.6 % (0-4.4); Hematocrit 23.8 % (42.0-52.0); Hemoglobin 7.9 g/dL (14.0-18.0); Immature Granulocyte Percent A 4.2 % (0-0.5); Lymphocytes Absolute Auto 0.57 K/mm3 (0.9-3.2); Mean Corpuscular HGB Conc 33.2 g/dl (32-36); Mean Corpuscular Hemoglobin 30.5 pg (26-34); Mean Corpuscular Volume 91.9 fl (80-100); Mean Platelet Volume 10.6 fl (7.4-10.4); Monocytes Absolute Auto 0.9 K/mm3 (0.1-0.6); Monocytes Percent Auto 6.2 % (2.6-8.5); Neutrophils Absolute Auto 12.1 K/mm3 (1.3-6.7); Neutrophils Percent Auto 84.7 % (45.5-73.1); Platelet Count Result 172 k/mm3 (150-375); Red Blood Count 2.59 M/mm3 (4.6-6.20); Red Cell Distribution Width 16.8 % (11.5-14.5); White Blood Count 14.2 K/mm3 (4.5-10.0)
[2023-02-13 06:22] LABS: Alanine Aminotransferase 40 U/L (6-50); Albumin Level 2.6 g/dL (3.5-5.1); Alkaline Phosphatase 189 U/L (38-126); Anion Gap 9 mmol/L (8-16); Aspartate Amino Transferase 87 U/L (17-59); Bilirubin,Total 1.8 mg/dL (0.2-1.3); Blood Urea Nitrogen 65 mg/dL (9-20); Carbon Dioxide 27 mmol/L (22-30); Chloride 102 mmol/L (98-107); Creatine Kinase 418 U/L (55-170); Estimated CRCL calculation 36 ml/min; Estimated Glomerular Filt Rate 37; Glucose 142 mg/dL (65-110); Potassium 3.1 mmol/L (3.4-5.0); Sodium 138 mmol/L (137-145)
[2023-02-13 07:54] LABS: Schistocytes None Seen (NORMAL); Target Cells 2+ (NORMAL)
[2023-02-13 07:55] LABS: Platelet Estimate Adequate (Adequate)
[2023-02-13 08:07] LABS: Glucose Point of Care 121 mg/dl (65-105)
[2023-02-13] MEDS: POTASSIUM CHLORIDE 20 MEQ ER TABLET 40 MEQ PO (08:37)
[2023-02-13] MEDS: SODIUM CHLORIDE 0.9% IV 1,000 ML 75 ML IV CONT ×2 (08:37→20:57)
[2023-02-13] MEDS: PANTOPRAZOLE SODIUM IV 40 MG VIAL IV PUSH (08:38)
--- NOTE | 2023-02-13 10:04 | PM.IMPN ---
Progress Note: A&P Assessment and Plan (1) Sepsis: Qualifiers: Sepsis acute organ dysfunction status: with acute organ dysfunction Sepsis type: sepsis due to unspecified organism Severe sepsis acute organ dysfunction type: unspecified Severe sepsis shock status: without septic shock Qualified Code(s): A41.9 - Sepsis, unspecified organism; R65.20 - Severe sepsis without septic shock Code(s): A41.9 - Sepsis, unspecified organism Status: Acute Assessment and Plan: 2/ blood cultures positive for Klebsiella pneumoniae, sens to cefepime Repeat blood cultures ordered 02/09, 1/2 still positive Cont cefepime, see above 02/13/23: 12 blood cx positive GNB, unsure why still positive, may need higher dose, consult to pharm, repeat blood cx drawn today, will check TTE, consider OZIEL if BCx remain positive (2) Acute urinary tract infection: Code(s): N39.0 - Urinary tract infection, site not specified Status: Acute Assessment and Plan: Initiated on cefepime 02/07 Urine cultures negative (3) Acute renal failure: Qualifiers: Acute renal failure type: unspecified Qualified Code(s): N17.9 - Acute kidney failure, unspecified Code(s): N17.9 - Acute kidney failure, unspecified Status: Acute Assessment and Plan: Appreciate nephrology, etiology likely multifactorial with possible hypoperfusion injury from hypotension from sepsis, compounded with dehydration, infection (pyelo vs UTI), also has elevated CK for possible rhabdo Renal US wnl Continue IVF, monitor closely, improving, creat down to 2.2, d/c soon when ok per nephro (4) Acute hyperkalemia: Code(s): E87.5 - Hyperkalemia Status: Acute Assessment and Plan: Per nephrology, stable, monitor Resolved, now hypokalemic, replaced and recheck (5) Hematuria: Qualifiers: Hematuria type: unspecified type Qualified Code(s): R31.9 - Hematuria, unspecified Code(s): R31.9 - Hematuria, unspecified Status: Acute Assessment and Plan: Appreciate urology consultation, continue CBI, unsure of etiology, urine culture negative Monitor, improving, hgb stable 02/09: Discontinue CBI, monitor, Urology is recommending finasteride and tamsulosin once renal function resolves, they recommend discharging with indwelling catheter for several weeks, follow-up outpatient for urodynamics with Urology (6) Tachycardia: Code(s): R00.0 - Tachycardia, unspecified Status: Acute Assessment and Plan: Mild, stable, improving, monitor (7) Altered mental status: Qualifiers: Altered mental status type: unspecified Qualified Code(s): R41.82 - Altered mental status, unspecified Code(s): R41.82 - Altered mental status, unspecified Status: Acute Assessment and Plan: likely 2/2 infection and uremia, monitor Resolved (8) Pancytopenia: Code(s): D61.818 - Other pancytopenia Status: Acute Assessment and Plan: likely 2/2 sepsis, appreciate heme/onc consult keep hgb >7, platelets >20, hemolysis workup pending 02/10: hgb 6.9, will transfuse 1 unit pRBCs /2: hgb dropped to 7.9, monitor, check stool occult, appreciate heme/onc Plan DVT prophylaxis with SCDs GI prophylaxis with PPI Code status full code Subjective Date/time seen: 02/13/23 10:04 Interval history: 57M w/ PMH urolithiasis, urinary retention with chronic dave, HTN presents from [facility] with altered mental status and being treated for JUDAH and urinary retention with underlying sepsis. No overnight events noted. No chest pain or shortness of breath. No nausea, vomiting or diarrhea. No fevers or chills. Patient states he feels a bit weaker today and decreased appetite. Review of Systems Review of Systems: 12 point review of systems was assessed and was negative except as noted in the HPI Exam Narrative:
[2023-02-13] MEDS: POTASSIUM CHLORIDE 20 MEQ ER TABLET PO (11:47)
[2023-02-13] MEDS: CEFEPIME 2 GM/NS 50 ML 2 GM/50 ML BAG IVPB ×2 (11:47→20:43)
--- NOTE | 2023-02-13 11:48 | PM.PNNEP ---
Progress Note: A&P Assessment and Plan (1) Acute renal failure: Qualifiers: Acute renal failure type: unspecified Qualified Code(s): N17.9 - Acute kidney failure, unspecified Code(s): N17.9 - Acute kidney failure, unspecified Status: Acute Assessment and Plan: slow improvement noted since admission reportedly has some underlying CKD per [facility] records - trying to obtain records... evaluation to date: CT imaging notes No obstructing calcification or suspicious mass. Apparent bilateral renal enlargement, greater on the left; moderate bilateral perinephric stranding; mild bilateral ureterectasis and ureteral stranding renal ultrasound unremarkable urine electrolytes not done CPK elevated -- trending down UA with hematuria multifactorial etiology: prerenal factors hypotension infection/sepsis - positive blood/urine cultures noted with possible pyelonephritis rhabdomyolysis (elevated CPK noted) transient obstruction from hematuria/clotting(?) VENUS-I use prior to presentation follow trend of repeat labs and UOP (2) Sepsis: Qualifiers: Sepsis acute organ dysfunction status: with acute organ dysfunction Sepsis type: sepsis due to unspecified organism Severe sepsis acute organ dysfunction type: unspecified Severe sepsis shock status: without septic shock Qualified Code(s): A41.9 - Sepsis, unspecified organism; R65.20 - Severe sepsis without septic shock Code(s): A41.9 - Sepsis, unspecified organism Status: Acute Assessment and Plan: blood cultures with Klebsiella follow repeat cultures on antibiotics stable hemodynamics at this time (3) Metabolic acidosis: Code(s): E87.20 - Acidosis, unspecified Status: Acute Assessment and Plan: resolved due to JUDAH and lactic acidosis bicarb IVFs discontinued (4) Hematuria: Qualifiers: Hematuria type: unspecified type Qualified Code(s): R31.9 - Hematuria, unspecified Code(s): R31.9 - Hematuria, unspecified Status: Acute Assessment and Plan: Urology following off CBI continue indwelling dave catheter no evidence of UTI by urine culture plan tamsulosin and finasteride once renal function resolves (5) Altered mental status: Qualifiers: Altered mental status type: unspecified Qualified Code(s): R41.82 - Altered mental status, unspecified Code(s): R41.82 - Altered mental status, unspecified Status: Acute Assessment and Plan: presumably due to JUDAH and sepsis mentation seems better at this time follow mental status (6) Anemia: Code(s): D64.9 - Anemia, unspecified Status: Acute Assessment and Plan: due to JUDAH and CKD along with hematuria suspect acute illness/inflammation playing a role PRBC transfusion as needed Hematology following consider DEEPTHI use (7) Hyponatremia: Code(s): E87.1 - Hypo-osmolality and hyponatremia Status: Acute Assessment and Plan: improvement noted relative dehydration and JUDAH along with history of CKD likely playing a role follow trend Will continue to follow. Subjective Date/time seen: 02/13/23 11:48 Interval history: Follow-up for acute kidney injury/acute renal failure (on chronic kidney disease). Renal function continues to improve with ongoing therapy (although baseline creatinine still not clear); major complaint is that of generalized weakness and poor appetite; no other issues/events noted overnight or earlier today; no acute distress voiced. Exam Narrative: General: thin male in NAD Heart: normal S1 and S2; no rub Lungs: clear to auscultation Abdomen: soft, nontender, nondistended, positive bowel sounds Extremities: no cyanosis or clubbing; no edema Skin: warm and dry Objective Data Vital Signs Vital Signs: Vital Signs Temp Pulse Resp BP Pulse Ox O2 Del
--- NOTE | 2023-02-13 11:48 | P.PNNP_ITS ---
Progress Note: A&P Assessment and Plan (1) Acute renal failure: Qualifiers: Acute renal failure type: unspecified Qualified Code(s): N17.9 - Acute kidney failure, unspecified Code(s): N17.9 - Acute kidney failure, unspecified Status: Acute Assessment and Plan: * slow improvement noted since admission * reportedly has some underlying CKD per [facility] - trying to obtain records... * evaluation to date: * CT imaging notes No obstructing calcification or suspicious mass. Apparent bilateral renal enlargement, greater on the left; moderate bilateral perinephric stranding; mild bilateral ureterectasis and ureteral stranding * renal ultrasound unremarkable * urine electrolytes not done * CPK elevated -- trending down * UA with hematuria * multifactorial etiology: * prerenal factors * hypotension * infection/sepsis - positive blood/urine cultures noted with possible pyelonephritis * rhabdomyolysis (elevated CPK noted) * transient obstruction from hematuria/clotting(?) * VENUS-I use prior to presentation * follow trend of repeat labs and UOP (2) Sepsis: Qualifiers: Sepsis acute organ dysfunction status: with acute organ dysfunction Sepsis type: sepsis due to unspecified organism Severe sepsis acute organ dysfunction type: unspecified Severe sepsis shock status: without septic shock Qualified Code(s): A41.9 - Sepsis, unspecified organism; R65.20 - Severe sepsis without septic shock Code(s): A41.9 - Sepsis, unspecified organism Status: Acute Assessment and Plan: * blood cultures with Klebsiella * follow repeat cultures * on antibiotics * stable hemodynamics at this time (3) Metabolic acidosis: Code(s): E87.20 - Acidosis, unspecified Status: Acute Assessment and Plan: * resolved * due to JUDAH and lactic acidosis * bicarb IVFs discontinued (4) Hematuria: Qualifiers: Hematuria type: unspecified type Qualified Code(s): R31.9 - Hematuria, unspecified Code(s): R31.9 - Hematuria, unspecified Status: Acute Assessment and Plan: * Urology following * off CBI * continue indwelling dave catheter * no evidence of UTI by urine culture * plan tamsulosin and finasteride once renal function resolves (5) Altered mental status: Qualifiers: Altered mental status type: unspecified Qualified Code(s): R41.82 - Altered mental status, unspecified Code(s): R41.82 - Altered mental status, unspecified Status: Acute Assessment and Plan: * presumably due to JUDAH and sepsis * mentation seems better at this time * follow mental status (6) Anemia: Code(s): D64.9 - Anemia, unspecified Status: Acute Assessment and Plan: * due to JUDAH and CKD along with hematuria * suspect acute illness/inflammation playing a role * PRBC transfusion as needed * Hematology following * consider DEEPTHI use (7) Hyponatremia: Code(s): E87.1 - Hypo-osmolality and hyponatremia Status: Acute Assessment and Plan: * improvement noted * relative dehydration and JUDAH along with history of CKD likely playing a role * follow trend Will continue to follow. Subjective Date/time seen: 02/13/23 11:48 Interval history: Follow-up for acute kidney injury/acute renal failure (on chronic kidney disease). Renal function continues to improve with ongoing therapy (although baseline cre atinine sti
[2023-02-13 12:20] LABS: Glucose Point of Care 164 mg/dl (65-105)
--- NOTE | 2023-02-13 14:25 | PCNFU ---
Nutrition Follow-Up Complete: Inadequate oral intake related to loss of appetite as evidenced by refusal of lunch Improve PO intake to at least 50% meals and supplements Goal: Pt current nutrition is Regular diet. Ensure Compact BID for additional 220 kcal and 9 g protein each. Nutrition recommendation: Continue current diet orders. Agree with orders. Encourage PO intake Last recorded weight is 79.9 kg. Bowel Motility: Last BM +2 02/09/23 Labs Reviewed: Hgb 7.9, Hct 23.8, Alb 2.6, K+ 3.1, BUN 65, Cre 2.2 Meds Noted: Protonix Skin: WNL Additional Notes: Intakes remain poor. Pt in bed with covers over the head, does not want to answer. Supplements are added. Monitor intakes, weights, labs, supplement tolerance, plan of care Follow up in 5 days
[2023-02-13 17:24] LABS: Glucose Point of Care 121 mg/dl (65-105)
[2023-02-13 19:16] LABS: Red Blood Cell Folate 794 ng/mL RBC (>280)
[2023-02-13 20:34] LABS: Glucose Point of Care 108 mg/dl (65-105)
[2023-02-13] MEDS: ACETAMINOPHEN ELIXIR 325 MG/10.15 ML UDC 650 MG PO (20:56)
[2023-02-14] VITALS: PULSE 97
[2023-02-14 04:00] VITALS: PULSE 103
[2023-02-14 05:01] VITALS: BP 130/77; PULSE 105; RESP 17; TEMP 36.6; O2SAT 97
[2023-02-14 06:09] LABS: Basophils Percent Auto 0.3 % (0.2-1.2); Eosinophils Absolute Auto 0.1 K/mm3 (0-0.3); Eosinophils Percent Auto 0.8 % (0-4.4); Hematocrit 22.3 % (42.0-52.0); Hemoglobin 7.3 g/dL (14.0-18.0); Immature Granulocyte Absolute 1.15 K/mm3 (0.00-0.031); Immature Granulocyte Percent A 7.3 % (0-0.5); Lymphocytes Percent Auto 5.1 % (18.3-44.2); Mean Corpuscular HGB Conc 32.7 g/dl (32-36); Mean Corpuscular Hemoglobin 30.7 pg (26-34); Mean Corpuscular Volume 93.7 fl (80-100); Mean Platelet Volume 10.2 fl (7.4-10.4); Monocytes Absolute Auto 0.9 K/mm3 (0.1-0.6); Monocytes Percent Auto 5.7 % (2.6-8.5); Neutrophils Absolute Auto 12.7 K/mm3 (1.3-6.7); Neutrophils Percent Auto 80.8 % (45.5-73.1); Platelet Count Result 195 k/mm3 (150-375); Red Blood Count 2.38 M/mm3 (4.6-6.20); Red Cell Distribution Width 17.2 % (11.5-14.5); White Blood Count 15.7 K/mm3 (4.5-10.0)
[2023-02-14 06:23] LABS: Alanine Aminotransferase 42 U/L (6-50); Albumin Level 2.6 g/dL (3.5-5.1); Alkaline Phosphatase 187 U/L (38-126); Anion Gap 9 mmol/L (8-16); Aspartate Amino Transferase 76 U/L (17-59); Bilirubin,Total 1.8 mg/dL (0.2-1.3); Blood Urea Nitrogen 46 mg/dL (9-20); Calcium 7.8 mg/dL (8.4-10.2); Carbon Dioxide 26 mmol/L (22-30); Chloride 105 mmol/L (98-107); Estimated CRCL calculation 49 ml/min; Estimated Glomerular Filt Rate 54; Glucose 118 mg/dL (65-110); Potassium 3.5 mmol/L (3.4-5.0); Sodium 140 mmol/L (137-145)
[2023-02-14 08:37] LABS: Glucose Point of Care 112 mg/dl (65-105)
[2023-02-14] MEDS: PANTOPRAZOLE SODIUM IV 40 MG VIAL IV PUSH (08:37)
[2023-02-14] MEDS: CEFEPIME 2 GM/NS 50 ML 2 GM/50 ML BAG IVPB ×2 (08:37→21:08)
[2023-02-14] MEDS: SODIUM CHLORIDE 0.9% IV 1,000 ML 75 ML IV CONT (08:39)
--- NOTE | 2023-02-14 10:12 | PM.IMPN ---
Progress Note: A&P Assessment and Plan (1) Sepsis: Qualifiers: Sepsis acute organ dysfunction status: with acute organ dysfunction Sepsis type: sepsis due to unspecified organism Severe sepsis acute organ dysfunction type: unspecified Severe sepsis shock status: without septic shock Qualified Code(s): A41.9 - Sepsis, unspecified organism; R65.20 - Severe sepsis without septic shock Code(s): A41.9 - Sepsis, unspecified organism Status: Acute Assessment and Plan: 2 blood cultures positive for Klebsiella pneumoniae, sens to cefepime Repeat blood cultures ordered 02/09, 1 still positive Cont cefepime, see above 02/13/23: 02/13 blood cx positive GNB, unsure why still positive, may need higher dose, consult to pharm, repeat blood cx drawn today, will check TTE, consider OZIEL if BCx remain positive Repeat BCx from 02/13/23 pending. Ne fevers but WBC higher. Consider renal abscess. Repeat renal US. (2) Acute urinary tract infection: Code(s): N39.0 - Urinary tract infection, site not specified Status: Acute Assessment and Plan: Complicated UTI with dave being changed out recently prior to admission. Also with cystitis with bilateral ascending infection and bilateral pyelonephritis. Initiated on cefepime 02/07 Urine cultures negative but BCx postive. (3) Acute renal failure: Qualifiers: Acute renal failure type: unspecified Qualified Code(s): N17.9 - Acute kidney failure, unspecified Code(s): N17.9 - Acute kidney failure, unspecified Status: Acute Assessment and Plan: JUDAH felt multifactorial with possible hypoperfusion injury from hypotension from sepsis, compounded with dehydration, infection (pyelo and UTI), also has elevated CK for possible rhabdo Renal US wnl Renal function improving. Cr 1.6 Stop IV fluids? (4) Acute hyperkalemia: Code(s): E87.5 - Hyperkalemia Status: Acute Assessment and Plan: Resolved (5) Hematuria: Qualifiers: Hematuria type: unspecified type Qualified Code(s): R31.9 - Hematuria, unspecified Code(s): R31.9 - Hematuria, unspecified Status: Acute Assessment and Plan: Related to cystitis. Appreciate urology consultation. Treated with CBI but now off. Monitor, improving, hgb stable Urology is recommending finasteride and tamsulosin once renal function resolves, they recommend discharging with indwelling catheter for several weeks, Follow-up outpatient for urodynamics with Urology (6) Tachycardia: Code(s): R00.0 - Tachycardia, unspecified Status: Acute Assessment and Plan: Mild, stable, improving Possibly related to dehydration TSH normal Stop tele (7) Altered mental status: Qualifiers: Altered mental status type: unspecified Qualified Code(s): R41.82 - Altered mental status, unspecified Code(s): R41.82 - Altered mental status, unspecified Status: Acute Assessment and Plan: likely 2/2 infection and uremia, monitor Resolved (8) Pancytopenia: Code(s): D61.818 - Other pancytopenia Status: Acute Assessment and Plan: likely 2/2 sepsis, appreciate heme/onc consult Hepatomegaly but no splenomegaly 02/10: hgb 6.9, will transfuse 1 unit pRBCs Appreciate heme/onc keep hgb >7, platelets >20, hemolysis workup pending (9) Rhabdomyolysis: Code(s): M62.82 - Rhabdomyolysis Status: Acute Assessment and Plan: TCK elevated on admission but has trended down with IV fluids. Patient with contractions. Unclear etiology. No CVA by CT brain. PT/OT Check right wrist xray to exclude occult fracture Plan HTN - Patient's blood pressure was reviewed on 02/14/23 Blood pressure remains well controlled. Will continue to hold home medications. DVT prophylaxis with SCDs GI prophylaxis with PPI Code status full code Subjective Date/time seen: 02/14/23 10:12
[2023-02-14 11:20] LABS: Bilirubin Indirect 0.8 mg/dL (0-1.1)
[2023-02-14 12:05] LABS: Glucose Point of Care 116 mg/dl (65-105)
[2023-02-14 13:48] VITALS: BP 175/96; PULSE 109; RESP 16; TEMP 36.6; O2SAT 97
--- NOTE | 2023-02-14 14:01 | P.PNNP_ITS ---
Progress Note: A&P Assessment and Plan (1) Acute renal failure: Qualifiers: Acute renal failure type: unspecified Qualified Code(s): N17.9 - Acute kidney failure, unspecified Code(s): N17.9 - Acute kidney failure, unspecified Status: Acute Assessment and Plan: * slow improvement noted since admission * reportedly has some underlying CKD per residential records * records requested but no information as of yet * evaluation to date: * CT imaging notes No obstructing calcification or suspicious mass. Apparent bilateral renal enlargement, greater on the left; moderate bilateral perinephric stranding; mild bilateral ureterectasis and ureteral stranding * renal ultrasound unremarkable * urine electrolytes not done * CPK elevated -- trending down * UA with hematuria * multifactorial etiology: * prerenal factors * hypotension * infection/sepsis - positive blood/urine cultures noted with possible pyelonephritis * rhabdomyolysis (elevated CPK noted) * transient obstruction from hematuria/clotting(?) * VENUS-I use prior to presentation * follow trend of repeat labs and UOP (2) Sepsis: Qualifiers: Sepsis acute organ dysfunction status: with acute organ dysfunction Sepsis type: sepsis due to unspecified organism Severe sepsis acute organ dysfunction type: unspecified Severe sepsis shock status: without septic shock Qualified Code(s): A41.9 - Sepsis, unspecified organism; R65.20 - Severe sepsis without septic shock Code(s): A41.9 - Sepsis, unspecified organism Status: Acute Assessment and Plan: * blood cultures with Klebsiella * follow repeat cultures -- noted with GPC now * on antibiotics with adjustments noted * stable hemodynamics at this time (3) Metabolic acidosis: Code(s): E87.20 - Acidosis, unspecified Status: Acute Assessment and Plan: * resolved * due to JUDAH and lactic acidosis * bicarb IVFs discontinued (4) Hematuria: Qualifiers: Hematuria type: unspecified type Qualified Code(s): R31.9 - Hematuria, unspecified Code(s): R31.9 - Hematuria, unspecified Status: Acute Assessment and Plan: * Urology following * off CBI * continue indwelling dave catheter * no evidence of UTI by urine culture * plan tamsulosin and finasteride once renal function resolves (5) Altered mental status: Qualifiers: Altered mental status type: unspecified Qualified Code(s): R41.82 - Altered mental status, unspecified Code(s): R41.82 - Altered mental status, unspecified Status: Acute Assessment and Plan: * presumably due to JUDAH and sepsis * mentation seems better at this time * follow mental status (6) Anemia: Code(s): D64.9 - Anemia, unspecified Status: Acute Assessment and Plan: * due to JUDAH and CKD9?) along with hematuria * suspect acute illness/inflammation playing a role * PRBC transfusion as needed * Hematology following * consider DEEPTHI use (7) Hyponatremia: Code(s): E87.1 - Hypo-osmolality and hyponatremia Status: Acute Assessment and Plan: * improvement noted * relative dehydration and JUDAH along with history of CKD likely playing a role * follow trend Will continue to follow. Subjective Date/time seen: 02/14/23 14:01 Interval history: Follow-up for acute kidney injury/acute renal failure (on chronic kidney disease?). No new issues or problems t
--- NOTE | 2023-02-14 14:01 | PM.PNNEP ---
Progress Note: A&P Assessment and Plan (1) Acute renal failure: Qualifiers: Acute renal failure type: unspecified Qualified Code(s): N17.9 - Acute kidney failure, unspecified Code(s): N17.9 - Acute kidney failure, unspecified Status: Acute Assessment and Plan: slow improvement noted since admission reportedly has some underlying CKD [facility] records requested but no information as of yet evaluation to date: CT imaging notes No obstructing calcification or suspicious mass. Apparent bilateral renal enlargement, greater on the left; moderate bilateral perinephric stranding; mild bilateral ureterectasis and ureteral stranding renal ultrasound unremarkable urine electrolytes not done CPK elevated -- trending down UA with hematuria multifactorial etiology: prerenal factors hypotension infection/sepsis - positive blood/urine cultures noted with possible pyelonephritis rhabdomyolysis (elevated CPK noted) transient obstruction from hematuria/clotting(?) VEUNS-I use prior to presentation follow trend of repeat labs and UOP (2) Sepsis: Qualifiers: Sepsis acute organ dysfunction status: with acute organ dysfunction Sepsis type: sepsis due to unspecified organism Severe sepsis acute organ dysfunction type: unspecified Severe sepsis shock status: without septic shock Qualified Code(s): A41.9 - Sepsis, unspecified organism; R65.20 - Severe sepsis without septic shock Code(s): A41.9 - Sepsis, unspecified organism Status: Acute Assessment and Plan: blood cultures with Klebsiella follow repeat cultures -- noted with GPC now on antibiotics with adjustments noted stable hemodynamics at this time (3) Metabolic acidosis: Code(s): E87.20 - Acidosis, unspecified Status: Acute Assessment and Plan: resolved due to JUDAH and lactic acidosis bicarb IVFs discontinued (4) Hematuria: Qualifiers: Hematuria type: unspecified type Qualified Code(s): R31.9 - Hematuria, unspecified Code(s): R31.9 - Hematuria, unspecified Status: Acute Assessment and Plan: Urology following off CBI continue indwelling dave catheter no evidence of UTI by urine culture plan tamsulosin and finasteride once renal function resolves (5) Altered mental status: Qualifiers: Altered mental status type: unspecified Qualified Code(s): R41.82 - Altered mental status, unspecified Code(s): R41.82 - Altered mental status, unspecified Status: Acute Assessment and Plan: presumably due to JUDAH and sepsis mentation seems better at this time follow mental status (6) Anemia: Code(s): D64.9 - Anemia, unspecified Status: Acute Assessment and Plan: due to JUDAH and CKD9?) along with hematuria suspect acute illness/inflammation playing a role PRBC transfusion as needed Hematology following consider DEEPTHI use (7) Hyponatremia: Code(s): E87.1 - Hypo-osmolality and hyponatremia Status: Acute Assessment and Plan: improvement noted relative dehydration and JUDAH along with history of CKD likely playing a role follow trend Will continue to follow. Subjective Date/time seen: 02/14/23 14:01 Interval history: Follow-up for acute kidney injury/acute renal failure (on chronic kidney disease?). No new issues or problems to report other than right arm pain; renal function continues to slowly improve with reasonable urine output; has not really gotten out of bed since admission; no other issues/events overnight or earlier this morning; blood cultures from 02/13/23 are positive. Exam Narrative: General: thin male in NAD Heart: normal S1 and S2; no rub Lungs: clear to auscultation Abdomen: soft, nontender, nondistended, positive bowel sounds Extremities: no cyanosis or clubbing; no edema Skin: warm and intact
[2023-02-14 14:32] VITALS: BMI 10.0
[2023-02-14 16:50] LABS: Glucose Point of Care 126 mg/dl (65-105)
[2023-02-14] MEDS: VANCOMYCIN 1,250 MG/NS 250 ML 1,250 MG/250 ML BAG 166.67 MG IVPB (17:14)
[2023-02-14 18:03] LABS: Immunochemical Fecal Occult Bl Negative (N)
[2023-02-14 18:04] LABS: IFOB Positive Control Positive
[2023-02-14 19:24] VITALS: BP 152/85; PULSE 130; RESP 18; TEMP 37.7; O2SAT 98
[2023-02-14 21:44] LABS: Glucose Point of Care 107 mg/dl (65-105)
[2023-02-15] MEDS: SODIUM CHLORIDE 0.9% IV 1,000 ML 75 ML IV CONT (04:00)
[2023-02-15 04:47] LABS: Haptoglobin 485 mg/dL (43-212)
[2023-02-15 06:26] LABS: Hematocrit 22.6 % (42.0-52.0); Hemoglobin 7.3 g/dL (14.0-18.0); Mean Corpuscular HGB Conc 32.3 g/dl (32-36); Mean Corpuscular Hemoglobin 30.7 pg (26-34); Platelet Count Result 226 k/mm3 (150-375); Red Blood Count 2.38 M/mm3 (4.6-6.20); Red Cell Distribution Width 17.1 % (11.5-14.5); White Blood Count 21.4 K/mm3 (4.5-10.0)
[2023-02-15 06:43] LABS: Alanine Aminotransferase 40 U/L (6-50); Albumin Level 2.7 g/dL (3.5-5.1); Alkaline Phosphatase 191 U/L (38-126); Anion Gap 9 mmol/L (8-16); Aspartate Amino Transferase 74 U/L (17-59); Bilirubin,Total 2.1 mg/dL (0.2-1.3); Blood Urea Nitrogen 34 mg/dL (9-20); Calcium 7.8 mg/dL (8.4-10.2); Carbon Dioxide 24 mmol/L (22-30); Chloride 106 mmol/L (98-107); Creatine Kinase 858 U/L (55-170); Estimated CRCL calculation 56 ml/min; Estimated Glomerular Filt Rate > 60; Glucose 120 mg/dL (65-110); Sodium 139 mmol/L (137-145)
[2023-02-15 07:09] LABS: Band Neutrophils Percent 9 % (0-6); Lymphocytes Absolute Manual 1.71 K/mm3 (1.1-4.5); Metamyelocytes Percent 1 %; Monocytes Absolute Manual 0.85 K/mm3 (0.1-0.90); Monocytes Percent Manual 4 % (3-9); Neutrophils Absolute Manual 18.61 K/mm3 (1.3-6.7); Neutrophils Percent Manual 78 % (46-73); Platelet Estimate Adequate (Adequate); Total Cells Counted 100
[2023-02-15 07:10] LABS: Hypochromasia 2+ (NORMAL); Schistocytes None Seen (NORMAL)
[2023-02-15] MEDS: POTASSIUM CHLORIDE 20 MEQ ER TABLET 40 MEQ PO (09:13)
[2023-02-15] MEDS: CEFEPIME 2 GM/NS 50 ML 2 GM/50 ML BAG IVPB (09:14)
[2023-02-15] MEDS: PANTOPRAZOLE SODIUM IV 40 MG VIAL IV PUSH (09:14)
[2023-02-15] MEDS: DEXTROSE 5%/0.9% SOD CHL 1,000 ML 70 ML IV CONT (09:17)
--- NOTE | 2023-02-15 10:15 | WPDONCPN ---
Progress Note: A/P (1) Pancytopenia Code(s): D61.818 - Other pancytopenia Status: Acute <Jessica Leung - 02/15/23 15:59> - Additional Plan Case reviewed and discussed with OBSTETRICS NURSE PRACTITIONER. Agree with above plan. Ankush Cruz MD <Ankush Cruz - 02/16/23 16:24> Anemia and thrombocytopenia: There was suspicion for DIC due to bacteremia and sepsis vs hemolysis vs antibiotic coverage and bone marrow suppression. He is on cefe and vanc for coverage. He also has renal insufficiency. Hemolysis work up shows LDH elevated to 403, Retic decreased to 28, Hapto elevated 485, and ALO IgG 2+. DIC workup shows PTT/PT and d-dimer prolonged, with an elevated fibrinogen at 715. Platelets have seemed to recover to 226,000, but is still anemic and shows persistent leukocytosis. I believe his leukocytosis is reactive in nature due to his active infection. His anemia could be worsened by slight B12 and iron deficiency and renal insufficiency. It could also be anemia from chronic inflammation/infection. We will start B12 and oral iron daily. His ALO IgG also positive. 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 Initial steroid therapy (hemoglobin of 10 g/dL or more within three weeks) reduce prednisone dose by 10 mg per week until the dose reaches 20 mg daily. Once the dose is 20 mg daily, decrease the dose no faster than 5 mg per week (often we decrease by 5 mg every other week. Please transfuse for Hgb <7 and Plts <20. Please have patient follow up after discharge. This patient's plan of care has been reviewed and approved by Dr. Anuksh Cruz. If you have any questions regarding this hematology or oncology evaluation, feel free to contact us for further assistance.?Thank you for allowing us to be a part of this patient's care. Jessica Leung APRN 02/15/23;1605 <Jessica Leung - 02/15/23 16:05> - Time Spent With Patient Total time spent is greater than 50% in coordination of care (as documented) at patient's floor/unit and/or counseling patient: <Ankush Cruz - 02/16/23 16:24> Total time spent is greater than 50% in coordination of care (as documented) at patient's floor/unit and/or counseling patient: <MadhuJessica - 02/15/23 10:17> Greater than 35 minutes <Jessica Leung 02/15/23 16:05> Subjective Interval history: Patient is resting in bed c/o some pain. Patient is unable to state what hospital he is in. He is able to tell me the year and month. He is unsure why he is in the hospital. <Jessica Leung - 02/15/23 16:05> Review of Systems - Review of Systems All systems reviewed & are unremarkable except as noted in HPI and bel <Jessica Leung 02/15/23 10:18> Exam Vital signs: Temp Pulse Resp BP Pulse Ox O2 Del Method O2 Flow Rate 36.6 C 95 14 137/80 99 Room Air 2 02/16/23 14:00 02/16/23 14:00 02/16/23 14:00 02/16/23 14:00 02/16/23 14:00 02/16/23 10:15 02/12/23 00:39 <Ankush Cruz - 02/16/23 16:24> Temp Pulse Resp BP Pulse Ox O2 Del Method O2 Flow Rate 37.7 C H 130 H 18 152/85 H 98 Room Air 2 02/14/23 19:24 02/14/23 19:24 02/14/23 19:24 02/14/23 19:24 02/14/23 19:24 02/14/23 14:32 02/12/23 00:39 <Jessica Leung 02/15/23 10:17> - Constitutional no acute distress <Jessica Leung 02/15/23 10:18> - Routine Neck Exam Absent: lymphadenopathy <Jessica Leung 02/15/23 13:44> - Routine Respiratory Exam Present: CTAB <Jessica Leung 02/15/23 10:18> - Routine Cardiovascular Exam Cardiovascular: Present: RRR, S1, S2 <Jessica Leung 02/15/23 10:18> - Routine Abdominal Exam Present: normal bowel sounds <Jessica Leung 02/15/23 10:18> - Routine Neurological Exam Present: altered mental status <Jessica Leung - 02/15/23 10:18> PN: Objective Data - Labs CBC & Chem 7: 02/16/23 10:24 02/16/23 04:28 <Ankush Cruz - 02/16/23 16:24> Labs: Laboratory Results - last 24 hr
--- NOTE | 2023-02-15 11:45 | PM.IMPN ---
Progress Note: A&P Assessment and Plan (1) Sepsis: Qualifiers: Sepsis acute organ dysfunction status: with acute organ dysfunction Sepsis type: sepsis due to unspecified organism Severe sepsis acute organ dysfunction type: unspecified Severe sepsis shock status: without septic shock Qualified Code(s): A41.9 - Sepsis, unspecified organism; R65.20 - Severe sepsis without septic shock Code(s): A41.9 - Sepsis, unspecified organism Status: Acute Assessment and Plan: Patient presents with symptoms of sepsis. Blood culture 02/07 growing Klebsiella pneumoniae sensitive to cefepime. [place] to be urinary source despite negative urine culture. CT scan of the abdomen showed bilateral ascending infection with bilateral pyelonephritis as well as cystitis. Repeat blood cultures 02/09 again showing Klebsiella pneumoniae in both sets. Renal ultrasound 02/14 shows normal size kidneys and no hydronephrosis. Repeat blood cultures 02/13/23 now growing Staph epidermidis in both aerobic sets. Vancomycin was added. Echo 02/13 showing EF 65-70% with grade 1 diastolic dysfunction but no obvious valvular vegetations noted. Consider that the staph is contaminant but white count higher. He does not have any hardware in his body. Repeat blood cultures today. Continue IV antibiotics. Check CXR (2) Acute urinary tract infection: Code(s): N39.0 - Urinary tract infection, site not specified Status: Acute Assessment and Plan: Complicated UTI with dave being changed out recently prior to admission. Also with cystitis with bilateral ascending infection and bilateral pyelonephritis. Initiated on cefepime 02/07; Vanco added 02/14 Urine cultures negative but BCx positive. Contineu IV abx (3) Acute renal failure: Qualifiers: Acute renal failure type: unspecified Qualified Code(s): N17.9 - Acute kidney failure, unspecified Code(s): N17.9 - Acute kidney failure, unspecified Status: Acute Assessment and Plan: JUDAH felt multifactorial with possible hypoperfusion injury from hypotension from sepsis, compounded with dehydration, infection (pyelo and UTI), also has elevated CK for possible rhabdo Renal US wnl Renal function improving. Cr 1.4 Patient eating poorly. Change to maintenance fluids. (4) Hematuria: Qualifiers: Hematuria type: unspecified type Qualified Code(s): R31.9 - Hematuria, unspecified Code(s): R31.9 - Hematuria, unspecified Status: Acute Assessment and Plan: Related to cystitis. Appreciate urology consultation. Treated with CBI but now off. Hgb stable Urology is recommending finasteride and tamsulosin once renal function resolves, they recommend discharging with indwelling catheter for several weeks, Follow-up outpatient for urodynamics with Urology Add Flomax (5) Tachycardia: Code(s): R00.0 - Tachycardia, unspecified Status: Acute Assessment and Plan: Mild, stable, improving Possibly related to dehydration TSH normal. Not hypoxic but consider PE. Check dopplers and VQ scan (6) Altered mental status: Qualifiers: Altered mental status type: unspecified Qualified Code(s): R41.82 - Altered mental status, unspecified Code(s): R41.82 - Altered mental status, unspecified Status: Acute Assessment and Plan: Likely 2/2 infection and uremia Symptoms have resolved. Follow (7) Pancytopenia: Code(s): D61.818 - Other pancytopenia Status: Acute Assessment and Plan: likely 2/2 sepsis, appreciate heme/onc consult Hepatomegaly but no splenomegaly. Stool guaiac negative. 02/10: hgb 6.9 and transfused 1 unit pRBCs Plt count dropped to 40K but normal now Appreciate heme/onc keep hgb >7. Hemolysis workup pending Pippa direct positive. (8) Rhabdomyolysis: Code(s): M62.82 - Rhabdomyolysis Status: Acute Assessment and Plan: TCK elevated on
[2023-02-15] MEDS: TAMSULOSIN HCL 0.4 MG CAPSULE PO (12:58)
--- NOTE | 2023-02-15 13:35 | P.PNNP_ITS ---
Progress Note: A&P Assessment and Plan (1) Acute renal failure: Qualifiers: Acute renal failure type: unspecified Qualified Code(s): N17.9 - Acute kidney failure, unspecified Code(s): N17.9 - Acute kidney failure, unspecified Status: Acute Assessment and Plan: * slow improvement noted since admission * reportedly has some underlying CKD per [facility] records * records requested but no information as of yet * evaluation to date: * CT imaging notes No obstructing calcification or suspicious mass. Apparent bilateral renal enlargement, greater on the left; moderate bilateral perinephric stranding; mild bilateral ureterectasis and ureteral stranding * renal ultrasound unremarkable * urine electrolytes not done * CPK elevated -- trending down * UA with hematuria * multifactorial etiology: * prerenal factors * hypotension * infection/sepsis - positive blood/urine cultures noted with possible pyelonephritis * rhabdomyolysis (elevated CPK noted) * transient obstruction from hematuria/clotting(?) * VENUS-I use prior to presentation * replete K+ as needed * follow trend of repeat labs and UOP (2) Sepsis: Qualifiers: Sepsis acute organ dysfunction status: with acute organ dysfunction Sepsis type: sepsis due to unspecified organism Severe sepsis acute organ dysfunction type: unspecified Severe sepsis shock status: without septic shock Qualified Code(s): A41.9 - Sepsis, unspecified organism; R65.20 - Severe sepsis without septic shock Code(s): A41.9 - Sepsis, unspecified organism Status: Acute Assessment and Plan: * blood cultures with Klebsiella * follow repeat cultures -- noted with Staph epidermis * on antibiotics with adjustments noted * stable hemodynamics at this time (3) Metabolic acidosis: Code(s): E87.20 - Acidosis, unspecified Status: Acute Assessment and Plan: * resolved * due to JUDAH and lactic acidosis * bicarb IVFs discontinued (4) Hematuria: Qualifiers: Hematuria type: unspecified type Qualified Code(s): R31.9 - Hematuria, unspecified Code(s): R31.9 - Hematuria, unspecified Status: Acute Assessment and Plan: * Urology following * off CBI * continue indwelling dave catheter * no evidence of UTI by urine culture * plan tamsulosin and finasteride once renal function resolves (5) Altered mental status: Qualifiers: Altered mental status type: unspecified Qualified Code(s): R41.82 - A ltered mental status, unspecified Code(s): R41.82 - Altered mental status, unspecified Status: Acute Assessment and Plan: * presumably due to JUDAH and sepsis * mentation seems better at this time * follow mental status (6) Anemia: Code(s): D64.9 - Anemia, unspecified Status: Acute Assessment and Plan: * due to JUDAH and CKD9?) along with hematuria * suspect acute illness/inflammation playing a role * PRBC transfusion as needed * Hematology following * consider DEEPTHI use (7) Hyponatremia: Code(s): E87.1 - Hypo-osmolality and hyponatremia Status: Acute Assessment and Plan: * improvement noted if not resolved * relative dehydration and JUDAH likely responsive for this * follow trend Not much else to add at this time from renal perspective -- will follow from a distance. Subjective Date/time seen: 02/15/23 13:35 Interval history: Follow-up for acute kidney
--- NOTE | 2023-02-15 13:35 | PM.PNNEP ---
Progress Note: A&P Assessment and Plan (1) Acute renal failure: Qualifiers: Acute renal failure type: unspecified Qualified Code(s): N17.9 - Acute kidney failure, unspecified Code(s): N17.9 - Acute kidney failure, unspecified Status: Acute Assessment and Plan: slow improvement noted since admission reportedly has some underlying [facility] records requested but no information as of yet evaluation to date: CT imaging notes No obstructing calcification or suspicious mass. Apparent bilateral renal enlargement, greater on the left; moderate bilateral perinephric stranding; mild bilateral ureterectasis and ureteral stranding renal ultrasound unremarkable urine electrolytes not done CPK elevated -- trending down UA with hematuria multifactorial etiology: prerenal factors hypotension infection/sepsis - positive blood/urine cultures noted with possible pyelonephritis rhabdomyolysis (elevated CPK noted) transient obstruction from hematuria/clotting(?) VENUS-I use prior to presentation replete K+ as needed follow trend of repeat labs and UOP (2) Sepsis: Qualifiers: Sepsis acute organ dysfunction status: with acute organ dysfunction Sepsis type: sepsis due to unspecified organism Severe sepsis acute organ dysfunction type: unspecified Severe sepsis shock status: without septic shock Qualified Code(s): A41.9 - Sepsis, unspecified organism; R65.20 - Severe sepsis without septic shock Code(s): A41.9 - Sepsis, unspecified organism Status: Acute Assessment and Plan: blood cultures with Klebsiella follow repeat cultures -- noted with Staph epidermis on antibiotics with adjustments noted stable hemodynamics at this time (3) Metabolic acidosis: Code(s): E87.20 - Acidosis, unspecified Status: Acute Assessment and Plan: resolved due to JUDAH and lactic acidosis bicarb IVFs discontinued (4) Hematuria: Qualifiers: Hematuria type: unspecified type Qualified Code(s): R31.9 - Hematuria, unspecified Code(s): R31.9 - Hematuria, unspecified Status: Acute Assessment and Plan: Urology following off CBI continue indwelling dave catheter no evidence of UTI by urine culture plan tamsulosin and finasteride once renal function resolves (5) Altered mental status: Qualifiers: Altered mental status type: unspecified Qualified Code(s): R41.82 - Altered mental status, unspecified Code(s): R41.82 - Altered mental status, unspecified Status: Acute Assessment and Plan: presumably due to JUDAH and sepsis mentation seems better at this time follow mental status (6) Anemia: Code(s): D64.9 - Anemia, unspecified Status: Acute Assessment and Plan: due to JUDAH and CKD9?) along with hematuria suspect acute illness/inflammation playing a role PRBC transfusion as needed Hematology following consider DEEPTHI use (7) Hyponatremia: Code(s): E87.1 - Hypo-osmolality and hyponatremia Status: Acute Assessment and Plan: improvement noted if not resolved relative dehydration and JUDAH likely responsive for this follow trend Not much else to add at this time from renal perspective -- will follow from a distance. Subjective Date/time seen: 02/15/23 13:35 Interval history: Follow-up for acute kidney injury/acute renal failure (on chronic kidney disease?). Renal function continue to improve with current interventions/therapy and good urine output noted; reports difficulty ambulating but is not clear as to cause; seems to be eating/drinking okay so IVFs discontinued but he still feels dehydrated in general (due to significant urine output?) -- no apparent distress noted. Exam Narrative: General: thin male in NAD Heart: normal S1 and S2; no rub Lungs: clear to auscultation Abdomen:
[2023-02-15 14:54] VITALS: BP 145/81; PULSE 121; RESP 20; TEMP 37; O2SAT 98
[2023-02-15 16:38] LABS: Vancomycin Random 7.8 ug/mL (10-20)
[2023-02-15 18:01] LABS: INR 1.4; Prothrombin Time 17.6 Seconds (11.1-14.7)
[2023-02-15] MEDS: VANCOMYCIN 1,250 MG/NS 250 ML 1,250 MG/250 ML BAG 166.67 MG IVPB (18:15)
[2023-02-15] MEDS: predniSONE 20 MG TABLET 60 MG PO (18:18)
[2023-02-15 20:00] VITALS: PULSE 112
[2023-02-15 20:11] LABS: Lactate Dehydrogenase 304 U/L (120-246)
[2023-02-15 20:23] VITALS: BP 118/73; PULSE 112; RESP 17; TEMP 36.9; O2SAT 95
[2023-02-15 20:53] LABS: Glucose Point of Care 144 mg/dl (65-105)
[2023-02-16] VITALS (15 sets, daily range): BP systolic 105–137; BP diastolic 63–81; PULSE 79–110; RESP 14–24; TEMP 36.2–36.7; O2SAT 95–100
[2023-02-16] MEDS: cefTRIAXone 2 GM/NS 100 ML 2 GM/100 ML BAG IVPB (00:05)
[2023-02-16] MEDS: SODIUM CHLOR 3% 15 ML NEB (RESPIRATORY THERAPY) 6 ML INHALATION (04:56)
[2023-02-16 04:57] LABS: Basophils Percent Auto 0.2 % (0.2-1.2); Immature Granulocyte Percent A 4.1 % (0-0.5); Lymphocytes Percent Auto 3.1 % (18.3-44.2); Mean Corpuscular HGB Conc 32.9 g/dl (32-36); Mean Corpuscular Hemoglobin 30.9 pg (26-34); Mean Corpuscular Volume 94.1 fl (80-100); Mean Platelet Volume 10.2 fl (7.4-10.4); Monocytes Absolute Auto 0.7 K/mm3 (0.1-0.6); Monocytes Percent Auto 3.4 % (2.6-8.5); Neutrophils Absolute Auto 17.5 K/mm3 (1.3-6.7); Neutrophils Percent Auto 89.2 % (45.5-73.1); Platelet Count Result 220 k/mm3 (150-375); Red Cell Distribution Width 16.8 % (11.5-14.5); White Blood Count 19.6 K/mm3 (4.5-10.0)
[2023-02-16 05:07] LABS: Alanine Aminotransferase 39 U/L (6-50); Albumin Level 2.6 g/dL (3.5-5.1); Alkaline Phosphatase 167 U/L (38-126); Anion Gap 10 mmol/L (8-16); Aspartate Amino Transferase 66 U/L (17-59); Bilirubin,Total 1.1 mg/dL (0.2-1.3); Blood Urea Nitrogen 27 mg/dL (9-20); Calcium 7.7 mg/dL (8.4-10.2); Carbon Dioxide 22 mmol/L (22-30); Chloride 108 mmol/L (98-107); Creatine Kinase 772 U/L (55-170); Estimated CRCL calculation 70 ml/min; Estimated Glomerular Filt Rate > 60; Glucose 181 mg/dL (65-110); Potassium 3.2 mmol/L (3.4-5.0); Sodium 140 mmol/L (137-145)
[2023-02-16 05:31] LABS: Hematocrit 20.7 % (42.0-52.0); Hemoglobin 6.8 g/dL (14.0-18.0)
[2023-02-16 05:32] LABS: Hypochromasia 2+ (NORMAL); Platelet Estimate Adequate (Adequate); Schistocytes None Seen (NORMAL); Target Cells 1+ (NORMAL)
[2023-02-16] MEDS: DEXTROSE 5%/0.9% SOD CHL 1,000 ML 70 ML IV CONT (06:41)
[2023-02-16 07:54] LABS: Lactate Dehydrogenase 299 U/L (120-246)
--- NOTE | 2023-02-16 09:47 | PM.IMPN ---
Progress Note: A&P Assessment and Plan (1) Sepsis: Qualifiers: Sepsis acute organ dysfunction status: with acute organ dysfunction Sepsis type: sepsis due to unspecified organism Severe sepsis acute organ dysfunction type: unspecified Severe sepsis shock status: without septic shock Qualified Code(s): A41.9 - Sepsis, unspecified organism; R65.20 - Severe sepsis without septic shock Code(s): A41.9 - Sepsis, unspecified organism Status: Acute Assessment and Plan: Patient presents with symptoms of sepsis. Blood culture 02/07 growing Klebsiella pneumoniae sensitive to cefepime. [place] to be urinary source despite negative urine culture. CT scan of the abdomen showed cystitis, bilateral ascending ureteral infection with bilateral pyelonephritis Repeat BCx 02/09 again showing Klebsiella pneumoniae in both sets. Renal ultrasound 02/14 shows normal size kidneys and no hydronephrosis. No abscess or mass Repeat blood cultures 02/13/23 now growing Staph epidermidis in both aerobic sets. Vancomycin was added. Echo 02/13 showing EF 65-70% with grade 1 diastolic dysfunction but no obvious valvular vegetations noted. Consider that the staph is contaminant but white count was higher. CXR showing new right pleural effusion (compared to CXR 1 week ago). Etiology unclear. PNA with parapneumonic effusion? malignancy? He does not have any hardware in his body. WBC peaked at 21K yesterday but better today. Now on steroids so this may become an unreliable marker Repeat blood cultures 02/15 NGTD. Continue IV antibiotics. (2) Pleural effusion: Code(s): J90 - Pleural effusion, not elsewhere classified Status: Acute Assessment and Plan: As above. Plan for thoracentesis. No hx of TB but sarabjit this on as well. (3) Anemia: Code(s): D64.9 - Anemia, unspecified Status: Acute Assessment and Plan: likely 2/2 sepsis +/- DIC. PT, PTT prolonged, DDimer 11, Fibrinogen 715. Heme/Onc consulted and appreciate their input Hepatomegaly but no splenomegaly. Stool guaiac negative. B12 380. 02/10: hgb 6.9 and transfused 1 unit pRBCs Pippa direct positive. B12 and Fe started. Prednisone started for autoimmune hemolytic anemia. No schistocytes seen. Today, Hgb 6.8. Repeat and consider transfusion Repeat iron studies Hemolysis workup pending (4) Acute urinary tract infection: Code(s): N39.0 - Urinary tract infection, site not specified Status: Acute Assessment and Plan: Complicated UTI with chronic dave with dave being changed out recently prior to admission. Also with cystitis with bilateral ascending infection and bilateral pyelonephritis. Initiated on cefepime 02/07; Vanco added / Urine cultures negative but BCx positive as above. Continue IV abx (5) Acute renal failure: Qualifiers: Acute renal failure type: unspecified Qualified Code(s): N17.9 - Acute kidney failure, unspecified Code(s): N17.9 - Acute kidney failure, unspecified Status: Acute Assessment and Plan: JUDAH felt multifactorial with possible hypoperfusion injury from hypotension from sepsis, compounded with dehydration, infection (pyelo and UTI), also has elevated CK for possible rhabdo Renal US wnl Renal function improving. Cr 1.1 Patient eating poorly 5-10%. Tachycardia better with rehydration. Continue maintenance fluids. (6) Hematuria: Qualifiers: Hematuria type: unspecified type Qualified Code(s): R31.9 - Hematuria, unspecified Code(s): R31.9 - Hematuria, unspecified Status: Acute Assessment and Plan: Related to cystitis. Appreciate urology consultation. Treated with CBI but now off. Hgb stable Urology is recommending finasteride and tamsulosin once renal function resolves, they recommend discharging with indwelling catheter for several weeks, Follow-up outpatient for urodynamics with Urology Flomax added back. Add finasterade
[2023-02-16] MEDS: predniSONE 20 MG TABLET 60 MG PO ×2 (10:10→18:03)
[2023-02-16] MEDS: TAMSULOSIN HCL 0.4 MG CAPSULE PO (10:10)
[2023-02-16] MEDS: POTASSIUM CHLORIDE 20 MEQ ER TABLET 40 MEQ PO (10:10)
[2023-02-16] MEDS: CYANOCOBALAMIN 1,000 MCG TABLET 1000 MCG PO (10:10)
[2023-02-16] MEDS: FERROUS SULFATE 325 MG TABLET DR PO (10:10)
[2023-02-16] MEDS: PANTOPRAZOLE SODIUM IV 40 MG VIAL IV PUSH (10:22)
[2023-02-16] MEDS: FINASTERIDE 5 MG TABLET PO (10:24)
[2023-02-16 10:38] LABS: Hemoglobin 6.7 g/dL (14.0-18.0)
[2023-02-16 10:39] LABS: Hematocrit 20.8 % (42.0-52.0)
--- NOTE | 2023-02-16 10:42 | PCOTNOTE ---
Attempted to see Patient this A.M. Patient refused any treatment until he talks with his brother. Per RN, Patient is supposed to have a procedure this date, but will not sign the consent until brother is contacted.
[2023-02-16] MEDS: CYCLOBENZAPRINE HCL 5 MG TABLET PO (11:11)
[2023-02-16 11:52] LABS: Iron 36 ug/dL (49-181)
[2023-02-16 11:53] LABS: Folic Acid 6.4 ng/mL (2.76->20)
[2023-02-16 12:01] LABS: Percent Iron Saturation 17 % (20-50)
--- NOTE | 2023-02-16 15:10 | PCOTNOTE ---
Patient out of the room at this time. Per Nursing, Patient out having a procedure done.
[2023-02-16 16:50] LABS: pH Pleural Fluid > 7.500 (7.210-7.500)
[2023-02-16 17:58] LABS: Appearance Pleural Fluid Cloudy (Clear); Color Pleural Fluid Yellow (Colorless); Lymphocytes Pleural Fluid 8 %; Neutrophils Pleural Fluid 42 % (0-25); Pleural fluid source Pleural fluid
[2023-02-16 17:59] LABS: Macrophages Pleural Fluid 35 %; Mesothelial Cells Pleural Flui 15 %
[2023-02-16] MEDS: VANCOMYCIN 1,250 MG/NS 250 ML BAG 166.67 MG IVPB (18:03)
[2023-02-16] MEDS: CEFEPIME 2 GM/NS 50 ML 2 GM/50 ML BAG IVPB (20:25)
[2023-02-16] MEDS: TUBING, BLOOD PLUM PUMP TUBING 1 EACH XX (23:02)
[2023-02-16] MEDS: SODIUM CHLORIDE 0.9% IV 250 ML 30 ML (23:02)
[2023-02-17] VITALS (7 sets, daily range): BP systolic 125–141; BP diastolic 74–86; PULSE 81–99; RESP 14–20; TEMP 36.4–36.6; O2SAT 96–100
[2023-02-17] MEDS: DEXTROSE 5%/0.9% SOD CHL 1,000 ML 70 ML IV CONT (02:15)
[2023-02-17] MEDS: CEFEPIME 2 GM/NS 50 ML 2 GM/50 ML BAG IVPB ×3 (04:22→20:26)
[2023-02-17 05:10] LABS: Basophils Percent Auto 0.2 % (0.2-1.2); Hematocrit 28.4 % (42.0-52.0); Hemoglobin 9.1 g/dL (14.0-18.0); Immature Granulocyte Percent A 1.9 % (0-0.5); Lymphocytes Absolute Auto 0.53 K/mm3 (0.9-3.2); Lymphocytes Percent Auto 3.4 % (18.3-44.2); Mean Corpuscular Hemoglobin 29.9 pg (26-34); Mean Corpuscular Volume 93.4 fl (80-100); Mean Platelet Volume 10.4 fl (7.4-10.4); Monocytes Absolute Auto 0.5 K/mm3 (0.1-0.6); Monocytes Percent Auto 3.4 % (2.6-8.5); Neutrophils Absolute Auto 14.4 K/mm3 (1.3-6.7); Neutrophils Percent Auto 91.1 % (45.5-73.1); Platelet Count Result 205 k/mm3 (150-375); Red Blood Count 3.04 M/mm3 (4.6-6.20); Red Cell Distribution Width 15.6 % (11.5-14.5); White Blood Count 15.8 K/mm3 (4.5-10.0)
[2023-02-17 05:19] LABS: Alanine Aminotransferase 50 U/L (6-50); Albumin Level 2.6 g/dL (3.5-5.1); Alkaline Phosphatase 167 U/L (38-126); Anion Gap 10 mmol/L (8-16); Aspartate Amino Transferase 86 U/L (17-59); Blood Urea Nitrogen 26 mg/dL (9-20); Calcium 7.6 mg/dL (8.4-10.2); Carbon Dioxide 20 mmol/L (22-30); Chloride 110 mmol/L (98-107); Estimated CRCL calculation 69 ml/min; Estimated Glomerular Filt Rate > 60; Glucose 177 mg/dL (65-110); Potassium 2.9 mmol/L (3.4-5.0); Sodium 140 mmol/L (137-145)
[2023-02-17] MEDS: SODIUM CHLOR 3% 15 ML NEB (RESPIRATORY THERAPY) 6 ML INHALATION (05:38)
[2023-02-17] MEDS: predniSONE 20 MG TABLET 60 MG PO ×2 (09:35→17:46)
[2023-02-17] MEDS: CYANOCOBALAMIN 1,000 MCG TABLET 1000 MCG PO (09:35)
[2023-02-17] MEDS: FINASTERIDE 5 MG TABLET PO (09:35)
[2023-02-17] MEDS: POTASSIUM CHLORIDE 20 MEQ ER TABLET 60 MEQ PO (09:35)
[2023-02-17] MEDS: FERROUS SULFATE 325 MG TABLET DR PO (09:35)
[2023-02-17] MEDS: CYCLOBENZAPRINE HCL 5 MG TABLET PO ×2 (09:36→17:57)
[2023-02-17] MEDS: TAMSULOSIN HCL 0.4 MG CAPSULE PO (09:36)
[2023-02-17] MEDS: PANTOPRAZOLE SODIUM IV 40 MG VIAL IV PUSH (09:36)
--- NOTE | 2023-02-17 13:13 | PM.IMPN ---
Progress Note: A&P Assessment and Plan (1) Sepsis: Qualifiers: Sepsis acute organ dysfunction status: with acute organ dysfunction Sepsis type: sepsis due to unspecified organism Severe sepsis acute organ dysfunction type: unspecified Severe sepsis shock status: without septic shock Qualified Code(s): A41.9 - Sepsis, unspecified organism; R65.20 - Severe sepsis without septic shock Code(s): A41.9 - Sepsis, unspecified organism Status: Acute Assessment and Plan: Patient presents with symptoms of sepsis. Blood culture 02/07 growing Klebsiella pneumoniae sensitive to cefepime. [place] to be urinary source despite negative urine culture. CT scan of the abdomen showed cystitis, bilateral ascending ureteral infection with bilateral pyelonephritis Repeat BCx 02/09 again showing Klebsiella pneumoniae in both sets. Renal ultrasound 02/14 shows normal size kidneys and no hydronephrosis. No abscess or mass Repeat blood cultures 02/13/23 now growing Staph epidermidis in both aerobic sets. Vancomycin was added. Echo 02/13 showing EF 65-70% with grade 1 diastolic dysfunction but no obvious valvular vegetations noted. Consider that the Staph epidermidis is contaminant but white count was higher. CXR showing new right pleural effusion (compared to CXR 1 week ago). Etiology unclear. PNA with parapneumonic effusion? malignancy? HCAP? He does not have any hardware in his body. WBC peaked at 21K but now trending down. Now on steroids so WBC may climb Repeat blood cultures 02/15 NGTD. Continue IV antibiotics in the form of Vanco and Cefepime for HCAP. (2) Pleural effusion: Code(s): J90 - Pleural effusion, not elsewhere classified Status: Acute Assessment and Plan: Patient underwent thoracentesis 02/16/23 with 150mL removed. Follow up CXR findings showing elevation of the right hemidiaphragm with persistent RLL opacity and minimal residual effusion. Left lung clear. Gram stain showing many WBC but no organisms. Suspect a parapneumonic effusion. Follow up on cultures. (3) Anemia: Code(s): D64.9 - Anemia, unspecified Status: Acute Assessment and Plan: likely 2/2 sepsis +/- DIC. PT, PTT prolonged, DDimer 11, Fibrinogen 715. Heme/Onc consulted and appreciate their input Hepatomegaly but no splenomegaly. Stool guaiac negative. B12 380. 02/10: hgb 6.9 and transfused 1 unit pRBCs Pippa direct positive. B12 and Fe started. Prednisone started for autoimmune hemolytic anemia. No schistocytes seen. Hgb dropped to 6.8 on 02/16 and received transfusion. Repeat iron studies consistent with chronic disease Continue steroids (4) Acute urinary tract infection: Code(s): N39.0 - Urinary tract infection, site not specified Status: Acute Assessment and Plan: Complicated UTI with chronic dave with dave being changed out recently prior to admission. Also with cystitis with bilateral ascending infection and bilateral pyelonephritis. Initiated on cefepime 02/07; Vanco added 02/14 Urine cultures negative but BCx positive as above. Continue IV abx (5) Acute renal failure: Qualifiers: Acute renal failure type: unspecified Qualified Code(s): N17.9 - Acute kidney failure, unspecified Code(s): N17.9 - Acute kidney failure, unspecified Status: Acute Assessment and Plan: JUDAH felt multifactorial with possible hypoperfusion injury from hypotension from sepsis, compounded with dehydration, infection (pyelo and UTI), also has elevated CK for possible rhabdo Renal US wnl Renal function improving. Cr 1.1 Patient was eating poorly 5-10%. Better at 30% now Stop Maintenance fluids. (6) Hematuria: Qualifiers: Hematuria type: unspecified type Qualified Code(s): R31.9 - Hematuria, unspecified Code(s): R31.9 - Hematuria, unspecified Status: Acute Assessment and Plan: Related to cystitis. Appreciate urology consultation. Irais
[2023-02-17] MEDS: VANCOMYCIN 1,250 MG/NS 250 ML 1,250 MG/250 ML BAG 166.67 MG IVPB (17:47)
[2023-02-17 19:02] LABS: Magnesium 1.5 mg/dL (1.6-2.3); Phosphorus 2.3 mg/dL (2.5-4.5); Potassium 3.3 mmol/L (3.4-5.0)
[2023-02-17] MEDS: POTASSIUM CHLORIDE 20 MEQ ER TABLET 40 MEQ PO (20:57)
[2023-02-17] MEDS: MAGNESIUM SULF 2 GM/WATER 50ML 2 GM/50 ML BAG IVPB (20:57)
[2023-02-17] MEDS: POTASSIUM/PHOSPHORUS/SODIUM 1.5 GM PACKET 1 PACKET PO (20:57)
[2023-02-18] MEDS: CEFEPIME 2 GM/NS 50 ML 2 GM/50 ML BAG IVPB ×3 (04:31→20:39)
[2023-02-18 04:50] VITALS: BP 134/85; PULSE 77; RESP 20; TEMP 36.3; O2SAT 99
[2023-02-18] MEDS: SODIUM CHLOR 3% 15 ML NEB (RESPIRATORY THERAPY) 6 ML INHALATION (04:51)
[2023-02-18 04:53] VITALS: PULSE 84; RESP 20
--- NOTE | 2023-02-18 08:44 | PM.IMPN ---
Progress Note: A&P Assessment and Plan (1) Sepsis: Qualifiers: Sepsis acute organ dysfunction status: with acute organ dysfunction Sepsis type: sepsis due to unspecified organism Severe sepsis acute organ dysfunction type: unspecified Severe sepsis shock status: without septic shock Qualified Code(s): A41.9 - Sepsis, unspecified organism; R65.20 - Severe sepsis without septic shock Code(s): A41.9 - Sepsis, unspecified organism Status: Acute Assessment and Plan: Patient presents with symptoms of sepsis. Blood culture 02/07 growing Klebsiella pneumoniae sensitive to cefepime. [place] to be urinary source despite negative urine culture. CT scan of the abdomen showed cystitis, bilateral ascending ureteral infection with bilateral pyelonephritis Repeat BCx 02/09 again showing Klebsiella pneumoniae in both sets that are pansensitive. Renal ultrasound 02/14 shows normal size kidneys and no hydronephrosis. No abscess or mass Repeat blood cultures 02/13/23 now growing Staph epidermidis in both aerobic sets sens to Doxy, Vanco. Vancomycin was added. Echo 02/13 showing EF 65-70% with grade 1 diastolic dysfunction but no obvious valvular vegetations noted. Consider that the Staph epidermidis is contaminant but white count was higher. CXR showing new right pleural effusion (compared to CXR 1 week ago). Etiology unclear. PNA with parapneumonic effusion? malignancy? HCAP? He does not have any hardware in his body. WBC peaked at 21K but now trending down. Now on steroids so WBC may climb again. Labs pending today. Repeat BCx 02/15 NGTD. Pleural fluid Cx 02/16 NGTD Continue IV antibiotics in the form of Vanco and Cefepime for HCAP. Narrow tomorrow. (2) Pleural effusion: Code(s): J90 - Pleural effusion, not elsewhere classified Status: Acute Assessment and Plan: CXR 02/15 showing new large right pleural effusion. Patient underwent thoracentesis 02/16/23 with 150mL removed. Follow up CXR findings showing elevation of the right hemidiaphragm with persistent RLL opacity and minimal residual effusion so probably not a large effusion on initial CXR. Left lung clear. Gram stain showing many WBC but no organisms. Suspect a parapneumonic effusion. Pleural fluid Cx 02/16 NGTD Follow up on cultures. Contnue abx (3) Anemia: Code(s): D64.9 - Anemia, unspecified Status: Acute Assessment and Plan: Likely 2/2 sepsis +/- DIC. PT, PTT prolonged, DDimer 11, Fibrinogen 715. Heme/Onc consulted and appreciate their input Hepatomegaly but no splenomegaly. Stool guaiac negative. B12 380. 02/10: hgb 6.9 and transfused 1 unit pRBCs [place] direct positive. B12 and Fe started. 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 No schistocytes seen. Hgb dropped to 6.8 on 02/16 and received transfusion. Repeat iron studies consistent with chronic disease Repeat labs pending today. Continue steroids (4) Acute urinary tract infection: Code(s): N39.0 - Urinary tract infection, site not specified Status: Acute Assessment and Plan: Complicated UTI with chronic dave with dave being changed out recently prior to admission. Also with cystitis with bilateral ascending infection and bilateral pyelonephritis. Initiated on cefepime 02/07; Vanco added 02/14 Urine cultures negative but BCx positive as above. Continue IV abx (5) Acute renal failure: Qualifiers: Acute renal failure type: unspecified Qualified Code(s): N17.9 - Acute kidney failure, unspecified Code(s): N17.9 - Acute kidney failure, unspecified Status: Acute Assessment and Plan: JUDAH felt multifactorial with possible hypoperfusion injury from hypotension from sepsis, compounded with dehydration, infection (pyelo and UTI), also has elevated CK for possible rhabdo Renal US wnl Renal function improving. Patient was eating poorly 5-10%. Better at 30% now Off Maintenance fluids. (6) Hem
[2023-02-18 09:34] LABS: Aldolase 9.1 U/L (<=8.1)
[2023-02-18] MEDS: FINASTERIDE 5 MG TABLET PO (10:18)
[2023-02-18] MEDS: TAMSULOSIN HCL 0.4 MG CAPSULE PO (10:18)
[2023-02-18] MEDS: predniSONE 20 MG TABLET 60 MG PO ×2 (10:18→17:53)
[2023-02-18] MEDS: FERROUS SULFATE 325 MG TABLET DR PO (10:18)
[2023-02-18] MEDS: CYANOCOBALAMIN 1,000 MCG TABLET 1000 MCG PO (10:18)
[2023-02-18] MEDS: PANTOPRAZOLE SODIUM IV 40 MG VIAL IV PUSH (10:18)
--- NOTE | 2023-02-18 13:17 | PCSTNOTE ---
Bedside swallowing evaluation completed. Cursory oral peripheral examination results within functional limits. Patient is a correction resident with history of alcoholism, altered mental status, sepsis, UTI. Chest x ray 02/16/23 IMPRESSION: 1. Minimal residual right pleural effusion postthoracentesis. 2. Volume loss with consolidation in the right middle and lower lobes most likely atelectasis although underlying pneumonia not excludable. Patient seen bedside with head of bed elevated to achieve upright positioning. Lunch tray present, including hamburger and sides. Patient drinking thin liquids by straw (Pepsi) with no soft signs of aspiration. Eating hamburger slowly, chewing requiring extra time. No swallowing difficulties noted. Based on results of chest x ray dated 02/16/23 a modified barium swallow study is recommended to evaluate possible silent aspiration. No speech therapy treatment is recommended at this time. Thank you for the referral of this patient. Swallowing precaution recommendations posted in chart.
--- NOTE | 2023-02-18 16:40 | PC.NURSE ---
Called residential program manager to get CBC, BMP and vanc trough drawn. Patient seems agreeable. Vanc trough was due at 1600
[2023-02-18 17:33] LABS: Basophils Percent Auto 0.1 % (0.2-1.2); Hematocrit 30.4 % (42.0-52.0); Hemoglobin 9.9 g/dL (14.0-18.0); Immature Granulocyte Absolute 0.13 K/mm3 (0.00-0.031); Immature Granulocyte Percent A 0.9 % (0-0.5); Lymphocytes Absolute Auto 0.52 K/mm3 (0.9-3.2); Lymphocytes Percent Auto 3.5 % (18.3-44.2); Mean Corpuscular HGB Conc 32.6 g/dl (32-36); Mean Corpuscular Hemoglobin 30.6 pg (26-34); Mean Corpuscular Volume 93.8 fl (80-100); Mean Platelet Volume 9.8 fl (7.4-10.4); Monocytes Absolute Auto 0.5 K/mm3 (0.1-0.6); Monocytes Percent Auto 3.4 % (2.6-8.5); Neutrophils Absolute Auto 13.7 K/mm3 (1.3-6.7); Neutrophils Percent Auto 92.1 % (45.5-73.1); Platelet Count Result 224 k/mm3 (150-375); Red Blood Count 3.24 M/mm3 (4.6-6.20); Red Cell Distribution Width 15.7 % (11.5-14.5); White Blood Count 14.9 K/mm3 (4.5-10.0)
[2023-02-18] MEDS: CYCLOBENZAPRINE HCL 5 MG TABLET PO (17:51)
[2023-02-18 17:54] LABS: Alanine Aminotransferase 79 U/L (6-50); Albumin Level 2.8 g/dL (3.5-5.1); Alkaline Phosphatase 192 U/L (38-126); Anion Gap 9 mmol/L (8-16); Aspartate Amino Transferase 74 U/L (17-59); Bilirubin,Total 1.1 mg/dL (0.2-1.3); Blood Urea Nitrogen 21 mg/dL (9-20); Calcium 7.4 mg/dL (8.4-10.2); Carbon Dioxide 22 mmol/L (22-30); Chloride 105 mmol/L (98-107); Creatine Kinase 357 U/L (55-170); Estimated CRCL calculation 80 ml/min; Estimated Glomerular Filt Rate > 60; Glucose 203 mg/dL (65-110); Magnesium 1.4 mg/dL (1.6-2.3); Phosphorus 2.3 mg/dL (2.5-4.5); Potassium 2.7 mmol/L (3.4-5.0); Sodium 136 mmol/L (137-145)
[2023-02-18 18:21] LABS: Vancomycin Trough 10.5 ug/mL (10.0-20.0)
[2023-02-18] MEDS: VANCOMYCIN 1,250 MG/NS 250 ML 1,250 MG/250 ML BAG 166.67 MG IVPB (18:55)
[2023-02-18] MEDS: POTASSIUM/PHOSPHORUS/SODIUM 1.5 GM PACKET 1 PACKET PO (18:55)
[2023-02-18] MEDS: POTASSIUM CHLORIDE INJ 40 MEQ in SODIUM CHLORIDE 0.9% IV 500 ML 130 MEQ IVPB (18:55)
[2023-02-18 19:23] VITALS: BP 128/87; PULSE 99; RESP 16; TEMP 36.4; O2SAT 99
[2023-02-18 19:38] VITALS: BP 162/99; PULSE 83; RESP 18; TEMP 36.6; O2SAT 100
[2023-02-18 20:00] VITALS: PULSE 83; RESP 18; O2SAT 100
[2023-02-18] MEDS: MAGNESIUM SULF 2 GM/WATER 50ML 2 GM/50 ML BAG IVPB (20:47)
[2023-02-19] MEDS: CEFEPIME 2 GM/NS 50 ML 2 GM/50 ML BAG IVPB (04:55)
[2023-02-19 06:14] LABS: Basophils Percent Auto 0.2 % (0.2-1.2); Hematocrit 29.4 % (42.0-52.0); Hemoglobin 9.6 g/dL (14.0-18.0); Immature Granulocyte Absolute 0.15 K/mm3 (0.00-0.031); Immature Granulocyte Percent A 1.1 % (0-0.5); Lymphocytes Percent Auto 4.5 % (18.3-44.2); Mean Corpuscular HGB Conc 32.7 g/dl (32-36); Mean Corpuscular Hemoglobin 30.6 pg (26-34); Mean Corpuscular Volume 93.6 fl (80-100); Monocytes Absolute Auto 0.6 K/mm3 (0.1-0.6); Monocytes Percent Auto 4.2 % (2.6-8.5); Platelet Count Result 204 k/mm3 (150-375); Red Blood Count 3.14 M/mm3 (4.6-6.20); Red Cell Distribution Width 15.7 % (11.5-14.5); White Blood Count 13.3 K/mm3 (4.5-10.0)
[2023-02-19 06:29] LABS: Alanine Aminotransferase 70 U/L (6-50); Albumin Level 2.8 g/dL (3.5-5.1); Alkaline Phosphatase 178 U/L (38-126); Anion Gap 9 mmol/L (8-16); Aspartate Amino Transferase 58 U/L (17-59); Blood Urea Nitrogen 22 mg/dL (9-20); Calcium 7.2 mg/dL (8.4-10.2); Carbon Dioxide 21 mmol/L (22-30); Chloride 106 mmol/L (98-107); Estimated CRCL calculation 93 ml/min; Estimated Glomerular Filt Rate > 60; Glucose 204 mg/dL (65-110); Magnesium 1.8 mg/dL (1.6-2.3); Phosphorus 2.5 mg/dL (2.5-4.5); Potassium 2.9 mmol/L (3.4-5.0); Sodium 136 mmol/L (137-145)
[2023-02-19 07:40] LABS: Anisocytosis 1+ (NORMAL); Hypochromasia 1+ (NORMAL); Platelet Estimate Adequate (Adequate); Schistocytes Rare (NORMAL)
[2023-02-19 08:06] LABS: Glucose Point of Care 199 mg/dl (65-105)
--- NOTE | 2023-02-19 09:23 | PCNFU ---
Addendum entered by Gabby Tovar RD, LDN 02/19/23 10:54: Addendum: New notification of pressure injuries. Deep tissue injuries to BL heels, L lateral foot. Ordering Evert BID for additional 90 kcal, 2.5 g protein with arginine and glutamine for wound healing support New nutrition Dx: Increased protein energy needs related to deep tissue pressure injuries, as evidenced by wound report Original Note: Nutrition Follow-Up Complete: Inadequate oral intake related to loss of appetite as evidenced by refusal of lunch Goal: Improve PO intake to at least 50% meals and supplements - Progressing Pt current nutrition is regular diet. Ensure Compact BID for additional 220 kcal and 9 g protein each. Nutrition recommendation: Continue with current nutrition care plan and supplements. Agree with orders Last recorded weight is 76.8 kg. Bowel Motility: Last BM 02/16/22. Pt may need bowel regimen Labs Reviewed: Hgb 9.6, Hct 29.4, Alb 2.8, Na 136, K+ 2.9, BUN 22, Glu 204 Meds Noted: Protonix, prednisone Skin: WNL Additional Notes: Intakes have improved to 25-50%. Having some Ensure. Continue current orders. Monitor intakes, weights, labs, supplement tolerance, plan of care Follow up in 5 days
[2023-02-19] MEDS: FERROUS SULFATE 325 MG TABLET DR PO (09:26)
[2023-02-19] MEDS: predniSONE 20 MG TABLET 60 MG PO ×2 (09:26→16:36)
[2023-02-19] MEDS: CYANOCOBALAMIN 1,000 MCG TABLET 1000 MCG PO (09:27)
[2023-02-19] MEDS: TAMSULOSIN HCL 0.4 MG CAPSULE PO (09:27)
[2023-02-19] MEDS: PANTOPRAZOLE SODIUM IV 40 MG VIAL IV PUSH (09:27)
[2023-02-19] MEDS: MAGNESIUM SULF 2 GM/WATER 50ML 2 GM/50 ML BAG IVPB (09:46)
--- NOTE | 2023-02-19 10:56 | PCOTNOTE ---
The patient treatment was not able to be completed. Patient out of the room. Will plan to continue treatment per plan of care.
[2023-02-19 11:36] LABS: Glucose Point of Care 224 mg/dl (65-105)
[2023-02-19] MEDS: POTASSIUM CHLORIDE INJ 40 MEQ in SODIUM CHLORIDE 0.9% IV 500 ML 130 MEQ IVPB (12:18)
--- NOTE | 2023-02-19 12:33 | PCSTNOTE ---
Please refer to the Modified Barium Swallow Evaluation in the EMR.
[2023-02-19] MEDS: INSULIN ASPART (*BKC) 100 UNITS/ML SUB-Q ×2 (12:34→17:02)
[2023-02-19] MEDS: AMOXICILLIN/CLAVULANATE K 875-125 MG TAB 1 TABLET PO (12:34)
[2023-02-19] MEDS: DOXYCYCLINE HYCLATE 100 MG TABLET PO (12:34)
--- NOTE | 2023-02-19 14:02 | PM.DS ---
DS: Admitting Diagnosis Discharge Date 02/19/23 Admitting Diagnosis Altered mental status DS: Discharge Diagnosis Discharge Diagnosis (1) Sepsis: Qualifiers: Sepsis acute organ dysfunction status: with acute organ dysfunction Sepsis type: sepsis due to unspecified organism Severe sepsis acute organ dysfunction type: unspecified Severe sepsis shock status: without septic shock Qualified Code(s): A41.9 - Sepsis, unspecified organism; R65.20 - Severe sepsis without septic shock Code(s): A41.9 - Sepsis, unspecified organism Status: Acute (2) Pleural effusion: Code(s): J90 - Pleural effusion, not elsewhere classified Status: Acute (3) Anemia: Code(s): D64.9 - Anemia, unspecified Status: Acute (4) Acute urinary tract infection: Code(s): N39.0 - Urinary tract infection, site not specified Status: Acute (5) Acute renal failure: Qualifiers: Acute renal failure type: unspecified Qualified Code(s): N17.9 - Acute kidney failure, unspecified Code(s): N17.9 - Acute kidney failure, unspecified Status: Acute (6) Hematuria: Qualifiers: Hematuria type: unspecified type Qualified Code(s): R31.9 - Hematuria, unspecified Code(s): R31.9 - Hematuria, unspecified Status: Acute (7) Tachycardia: Code(s): R00.0 - Tachycardia, unspecified Status: Acute (8) Rhabdomyolysis: Code(s): M62.82 - Rhabdomyolysis Status: Acute (9) Hyponatremia: Code(s): E87.1 - Hypo-osmolality and hyponatremia Status: Acute (10) Altered mental status: Qualifiers: Altered mental status type: unspecified Qualified Code(s): R41.82 - Altered mental status, unspecified Code(s): R41.82 - Altered mental status, unspecified Status: Acute (11) Thrombocytopenia: Code(s): D69.6 - Thrombocytopenia, unspecified Status: Acute (12) Acute hyperkalemia: Code(s): E87.5 - Hyperkalemia Status: Acute (13) Hypertension: Code(s): I10 - Essential (primary) hypertension Status: Acute (14) Hypokalemia: Code(s): E87.6 - Hypokalemia Status: Acute DS: Summary Hospital Course Reason for hospitalization: 57yo male w/ PMH urolithiasis, urinary retention with chronic dave, HTN presents from [facility] with altered mental status and being treated for JUDAH and urinary retention with underlying sepsis. The pt had a Dave catheter change on the day of admission, apparently has had some bleeding.?Please see H&P for details. Hospital Course: Patient presents with altered mental status and symptoms of sepsis. CT scan of the abdomen showed cystitis, bilateral ascending ureteral infection with bilateral pyelonephritis. Antibiotics Blood culture 02/07 growing Klebsiella pneumoniae sensitive to cefepime.? UCx negative. [place] to be urinary source despite negative urine culture. Cr 8.2 on admission with hyperkalemia. JUDAH felt multifactorial with possible hypoperfusion injury from hypotension from sepsis, compounded with dehydration, infection (pyelo and UTI), also has elevated CK from rhabdomyolysis (Total CK 7786 on admission). Total CK level trended down to near normal. Potassium normalized and now low at times. Repeat BCx 02/09 again showing Klebsiella pneumoniae in both sets that are pansensitive. Renal ultrasound 02/14 shows normal size kidneys and no hydronephrosis. No abscess or mass. Renal function improved and normalized. Nephrology was consulted and appreciate their input. Patient was eating poorly but now improved. Patient with hematuria related to cystitis. Urology consulted and appreciated thier input. Treated with CBI and weaned off. Urology recommended finasteride and tamsulosin which were started. They recommended discharging with indwelling catheter for several weeks with plans for outpatient follow-up for urodynamics with Urology. Altered mental statu
--- NOTE | 2023-02-19 14:09 | PCOTNOTE ---
Patient refused treatment this session. Patient reports he is leaving today. Patient reports he is also tired from earlier.
[2023-02-19 14:20] VITALS: BP 133/87; PULSE 95; RESP 14; TEMP 36.4; O2SAT 99
[2023-02-19 16:21] LABS: Potassium 3.2 mmol/L (3.4-5.0)
[2023-02-19] MEDS: POTASSIUM CHLORIDE 20 MEQ ER TABLET 40 MEQ PO (16:36)
[2023-02-19 16:44] LABS: Glucose Point of Care 232 mg/dl (65-105)
[2023-02-20 09:25] LABS: Haptoglobin 421 mg/dL (43-212)
[2023-02-21 06:46] LABS: Glucose Pleural Fluid 148 mg/dL; LDH Pleural Fluid 218 U/L; Total Protein Pleural Fluid <3.0 g/dL
[2023-02-22 11:28] LABS: Albumin Pleural Fluid 1.3 g/dL
== END 2023-02-19 17:45 | DRG 466 ==
LOC: ANHED 15:07 → ANHIMU 21:48 → ANHICU 02-08 06:22 → ANHIMU 02-09 18:53 → ANH2MED 02-12 05:45
PROVIDERS: Emergency Medicine; Internal Medicine Nephrology; Student in an Organized Health Care Education/Training Program; Admitting Provider General Practice; Emergency Provider Student in an Organized Health Care Education/Training Program; Visit Provider Internal Medicine
DX: T83.511A Infection and inflammatory reaction due to indwelling urethral catheter, initial encounter (principal); A41.89 Other specified sepsis; R65.20 Severe sepsis without septic shock; N10 Acute pyelonephritis; D65 Disseminated intravascular coagulation [defibrination syndrome]; N30.91 Cystitis, unspecified with hematuria; J90 Pleural effusion, not elsewhere classified; N17.0 Acute kidney failure with tubular necrosis; R31.0 Gross hematuria; B96.1 Klebsiella pneumoniae [K. pneumoniae] as the cause of diseases classified elsewhere; J18.9 Pneumonia, unspecified organism; M62.82 Rhabdomyolysis; E87.1 Hypo-osmolality and hyponatremia; E87.5 Hyperkalemia; I10 Essential (primary) hypertension; B95.7 Other staphylococcus as the cause of diseases classified elsewhere; E87.6 Hypokalemia; N40.1 Benign prostatic hyperplasia with lower urinary tract symptoms; R33.8 Other retention of urine; E86.0 Dehydration; D63.1 Anemia in chronic kidney disease; D59.10 Autoimmune hemolytic anemia, unspecified; I25.10 Atherosclerotic heart disease of native coronary artery without angina pectoris; M19.031 Primary osteoarthritis, right wrist; R29.6 Repeated falls; F10.90 Alcohol use, unspecified, uncomplicated; Z20.822 Contact with and (suspected) exposure to COVID-19; R64 Cachexia; D69.59 Other secondary thrombocytopenia; S90.32XA Contusion of left foot, initial encounter; S90.31XA Contusion of right foot, initial encounter; X58.XXXA Exposure to other specified factors, initial encounter; Z68.23 Body mass index [BMI] 23.0-23.9, adult; Z91.199 Patient's noncompliance with other medical treatment and regimen due to unspecified reason
CPT/HCPCS: 32555; 36415; 36430; 70450; 71045; 73110; 74176; 76775; 78582; 80048; 80053; 80202; 81001; 82042; 82085; 82248; 82274; 82550; 82607; 82728; 82746; 82747; 82945; 82948; 83010; 83540; 83550; 83605; 83615; 83690; 83735; 83986; 84100; 84132; 84145; 84157; 84300; 84443; 84484; 84550; 85014; 85018; 85025; 85046; 85055; 85380; 85384; 85610; 85730; 86140; 86850; 86880; 86900; 86901; 86923; 87015; 87040; 87070; 87075; 87077; 87086; 87088; 87102; 87116; 87147; 87181; 87186; 87205; 87206; 87637; 89051; 92610; 92611; 93005; 93306; 93970; 94640; 96361; 96365; 96367; 96375; 97110; 97161; 97166; 97530; 99285; A9270; A9540; A9558; C9113; J0612; J0613; J0692; J0696; J1450; J1815; J3370; J3475; J3480; J7030; J7040; J7042; J7050; J7120; J7512; P9016; P9017; P9034